=== PATIENT | female | born 1930 ===

== ENCOUNTER 2017-02-18 20:44 | Inpatient (IN) | payer MEDICARE, OTHER ==
[2017-02-18] MEDS ORDERED: TDAP Vaccine 0.5 mL Syr IM ONE (21:17)
--- NOTE | 2017-02-18 21:53 | CT ---
EXAM: CT Head Without Intravenous Contrast CLINICAL HISTORY: 86 years old, female; Injury or trauma; Fall; Initial encounter; Blunt trauma (contusions or hematomas); Consciousness not specified; Injury date: 02-18-2017; Additional info: Head injury TECHNIQUE: Axial computed tomography images of the head/brain without intravenous contrast. This CT exam was performed using one or more of the following dose reduction techniques: automated exposure control, adjustment of the mA and/or kV according to patient size, and/or use of iterative reconstruction technique. COMPARISON: CT HEAD OR BRAIN W/O CONT 03/23/2014 9:28:12 PM FINDINGS: Brain: Uiny-mr-gjmgscfr atrophy. No intracranial hemorrhage. No mass. Several scattered foci of decreased attenuation within periventricular/subcortical white matter. Chronic lacunar infarct within RIGHT basal ganglia. No edema. Ventricles: No hydrocephalus. Bones/joints: No calvarial fracture. Vasculature: Atherosclerotic disease of intracranial arteries. Mastoid air cells: No mastoid effusion. IMPRESSION: 1. No intracranial hemorrhage. 2. Nonspecific white matter changes. 3. See facial bone CT report for additional details. 4. Incidental/non-acute findings are described above.
[2017-02-18 22:02] LABS: BASO # 0.1 K/uL (0.0-0.2); BASO % 1.2 % (0.0-2.0); EOS # 0.2 K/uL (0.0-0.7); EOS % 2.4 % (0.0-4.0); LYMPH # 1.5 K/uL (1.0-4.3); LYMPH % 16.2 % (20.0-40.0); MEAN CELL VOLUME 93.7 fl (81.0-99.0); MEAN CORPUSCULAR HEMOGLOBIN 30.9 pg (27.0-31.0); MEAN PLATELET VOLUME 8.5 fl (7.2-11.7); MONO # 0.8 K/uL (0.0-0.8); MONO % 9.2 % (0.0-10.0); NEUT # 6.5 K/uL (1.8-7.0); NRBC % 0.1 % (0.0-0.0); RED CELL DISTRIBUTION WIDTH 15.1 % (11.5-14.5); WHITE BLOOD COUNT 9.2 K/uL (4.8-10.8)
[2017-02-18] MEDS ORDERED: Lidocaine 1% Inj (20ml) IJ ONE (22:02)
--- NOTE | 2017-02-18 22:06 | CT ---
EXAM: CT Cervical Spine Without Intravenous Contrast CLINICAL HISTORY: 86 years old, female; Injury or trauma; Fall; Initial encounter; Blunt trauma; Injury date: 02-18-2017; Additional info: Neck injury TECHNIQUE: Axial computed tomography images of the cervical spine without intravenous contrast. This CT exam was performed using one or more of the following dose reduction techniques: automated exposure control, adjustment of the mA and/or kV according to patient size, and/or use of iterative reconstruction technique. Coronal and sagittal reformatted images were created and reviewed. COMPARISON: No relevant prior studies available. FINDINGS: Vertebrae: No acute fracture. Degenerative retrolithesis of mid cervical spine. Facet osteoarthrosis within cervical spine. Discs/spinal canal/neural foramina: Mild degenerative disc disease within upper cervical spine. Moderate to severe degenerative disc disease within mid cervical spine. Uehn-ow-iqjshdir degenerative disc disease within mid to lower cervical spine. Dgru-pd-moenliyn degenerative disc disease within upper thoracic spine. Disc herniations within mid to lower cervical spine, suboptimally evaluated. Mild indentation thecal sac/cord mid cervical spine. Mild indentation thecal sac lower cervical spine. Neuroforaminal narrowing with mid and lower cervical spine. Soft tissues: Unremarkable. Vasculature: Mild atherosclerotic disease. Thyroid: Few cysts or nodules, largest 1.2 x 1.0 x 0.7 cm. Calcification. Lung apices: Few nodules and/or focal scarring, up to 0.3 cm. IMPRESSION: 1. No fracture. 2. Thyroid nodule. Followup as clinically warranted. 3. Pulmonary nodules. For low-risk patients, no follow-up is necessary. For high-risk patients (smoking history or other known risk factors) recommend CT at 12 months and if unchanged, no further follow-up. 4. Incidental/non-acute findings are described above.
[2017-02-18] MEDS ORDERED: Lidocaine 1% Inj (20ml) ONE (22:07)
[2017-02-18 22:14] LABS: ALB/GLOB RATIO 1.2 (1.0-2.1); ALKALINE PHOSPHATASE 107 U/L (38-126); ALT/SGPT 33 U/L (9-52); AST/SGOT 36 U/L (14-36); BILIRUBIN,TOTAL 0.5 mg/dl (0.2-1.3); BLOOD UREA NITROGEN 14 mg/dl (7-17); CALCIUM 9.8 mg/dL (8.4-10.2); CARBON DIOXIDE 28 mmol/L (22-30); CHLORIDE 102 mmol/L (98-107); GFR AFRICAN-AMERICAN > 60; GLUCOSE,RANDOM 128 mg/dL (65-105); POTASSIUM 3.8 MMOL/L (3.6-5.0); SODIUM 142 mmol/l (132-148); TOTAL PROTEIN 8.1 G/DL (6.3-8.2)
--- NOTE | 2017-02-18 22:20 | CT ---
EXAM: CT Maxillofacial Without Intravenous Contrast CLINICAL HISTORY: 86 years old, female; Injury or trauma; Fall; Initial encounter; Blunt trauma (contusions or hematomas); Nose and orbit/periorbital; Right; Injury date: 02-18-2017; Additional info: Facial trauma TECHNIQUE: Axial computed tomography images of the face without intravenous contrast. This CT exam was performed using one or more of the following dose reduction techniques: automated exposure control, adjustment of the mA and/or kV according to patient size, and/or use of iterative reconstruction technique. Coronal and sagittal reformatted images were created and reviewed. COMPARISON: No relevant prior studies available. FINDINGS: Bones/joints: Nondisplaced fracture RIGHT zygomatic arch. Mildly depressed fracture floor of RIGHT orbit. Mildly depressed fracture anterior wall of RIGHT maxillary sinus. Mildly displaced fracture posterolateral wall of RIGHT maxillary sinus. Nondisplaced fracture lateral wall of RIGHT orbit. Soft tissues: RIGHT periorbital/zygomatic soft tissue swelling. Orbits: Mild stranding/air along inferior RIGHT orbit. No entrapment. Sinuses: Partial opacification/fluid of RIGHT maxillary sinus. IMPRESSION: 1. Facial fractures as above. 2. Incidental/non-acute findings are described above.
[2017-02-18 22:28] LABS: PARTIAL THROMBOPLASTIN TIME 24.7 SECONDS (23.3-32.5)
[2017-02-18] MEDS ORDERED: Piperacillin/Tazobact 3.375 GM in Sodium Chloride 0.9% 100 ML IV STA (22:28)
[2017-02-18 22:55] LABS: RBC URINE 1 /hpf (0-3); URINE BILIRUBIN NEGATIVE (NEGATIVE); URINE BLOOD NEGATIVE (NEGATIVE); URINE COLOR STRAW (YELLOW); URINE GLUCOSE (UA) NEG (Normal); URINE KETONE NEGATIVE (NEGATIVE); URINE LEUKOCYTE ESTERASE NEG Leu/uL (Negative); URINE PROTEIN 30 mg/dL (NEGATIVE); URINE UROBILINOGEN 0.2-1.0 mg/dL (0.2-1.0); WBC URINE 1 /hpf (0-5)
--- NOTE | 2017-02-18 23:13 | ED PDOC ---
HPI: Trauma/Fall - HPI Time Seen by Provider: 02/18/17 20:54 Chief Complaint (Nursing): Trauma Chief Complaint (Provider): Post fall syncope History Per: Patient, Family (Son) History/Exam Limitations: no limitations Onset/Duration Of Symptoms: Hrs Location Of Injury: Left: Face (Acute left facial swelling) Additional Complaint(s): Vandana Chang, an 86 year old female patient, who is complaining of facial pain, presents to the ED with acute left facial swelling. She reported to her son that she tripped while walking and hit her face against a wall. The patient stated that her fall was unwitnessed and she seated herself on the ground after she fell. The patient denies loss of consciousness, shortness of breath, chest pains and nausea. According to her son. she had a similar fall 1 year ago and was rehabilitated for 3 months. The EMS immobilized her cervical spine in the field. PCP: Kevin Villaseñor - Fall Fall:Prior To Injury: Tripped Past Medical History Reviewed: Historical Data, Nursing Documentation, Vital Signs Vital Signs: Last Vital Signs Temp 98.2 F 02/19/17 04:00 Pulse 62 02/19/17 04:00 Resp 16 02/19/17 04:00 BP 134/82 02/19/17 04:00 Pulse Ox 97 02/19/17 04:00 - Medical History PMH: Arthritis, Dementia, HTN Denies: HIV, Chronic Kidney Disease Other PMH: Left eye blindness; Prior falls - Surgical History Other surgeries: Surgery on the right eye. - Family History Family History: States: Unknown Family Hx - Social History Current smoker - smoking cessation education provided: No Ex-Smoker (has not smoked in the last 12 months): No Alcohol: None Drugs: Denies - Home Medications Home Medications: Ambulatory Orders Medication Instructions Recorded Acitretin [Acitretin] 25 mg PO DAILY 02/18/17 Aspirin [Lo-Dose Aspirin EC] 81 mg PO DAILY 02/18/17 Donepezil HCl [Aricept] 5 mg PO DAILY 02/18/17 Donepezil [Aricept] 10 mg PO DAILY 02/18/17 Gabapentin [Neurontin] 100 mg PO BID 02/18/17 amLODIPine [Norvasc] 5 mg PO DAILY 02/18/17 hydrOXYzine HCl [Atarax] 10 mg PO DAILY 02/18/17 - Allergies Allergies/Adverse Reactions: Allergies Allergy/AdvReac Type Severity Reaction Status Date / Time No Known Allergies Allergy Verified 08/09/15 19:59 Review of Systems ROS Statement: Except As Marked, All Systems Reviewed And Found Negative Constitutional: Positive for: Other (Acute left facial swelling; fall) Cardiovascular: Negative for: Chest Pain Respiratory: Negative for: Shortness of Breath Gastrointestinal: Negative for: Nausea Musculoskeletal: Positive for: Other (Facial pain) Neurological: Positive for: Other (Possible syncope) Physical Exam - Reviewed Nursing Documentation Reviewed: Yes Vital Signs Reviewed: Yes - Physical Exam Appears: Positive for: Uncomfortable Head Exam: Positive for: ATRAUMATIC, NORMAL INSPECTION, NORMOCEPHALIC Skin: Positive for: Normal Color, Warm, Dry Eye Exam: Positive for: Other (3cm laceration to periorbital region lateral to right eye; ecchymosis and edema to right periorbital surface.) ENT: Positive for: Normal ENT Inspection Neck: Positive for: Normal, Painless ROM, Supple Cardiovascular/Chest: Positive for: Regular Rate, Rhythm, Chest Non Tender. Negative for: Tachycardia Respiratory: Positive for: Normal Breath Sounds. Negative for: Wheezing, Respiratory Distress Gastrointestinal/Abdominal: Positive for: Normal Exam, Soft. Negative for: Tenderness Back: Positive for: Normal Inspection, L CVA Tenderness, R CVA Tenderness Extremity: Positive for: Tenderness (Tenderness to right shoulder but arm moves. ), Other (1+ edema bilateral to lower extremeties.) Neurologic/Psych: Positive for: Alert, Oriented, Other (Awake, alert and oriented x3) - Laboratory Results Result Diagrams: 02/18/17 21:58 02/18/17 21:58 - ECG O2 Sat by Pulse Oximetry: 96 (RA) Pulse Ox Interpretation: Normal - Critical Care Total Time (In Min): 30 Medical Decision Making Medical Decision Makin:54 Initial Impression: 86 year old female, post fall with facial/orbital injury from setting of possible syncopal event. Initial Plan: * EKG * Creatine phosphokinase * Partial thromboplastin time * Prothrombin time * Lidocaine 1% (20mL) 3mL IJ * Morphine 2mg IVP * Zofran 4mg IV * Boostrix 0.5mL IM * Zosyn 3.375gm sodium chloride 0.9% 100mL IV * Reevaluation 9:53 CT Head Without Intravenous Contrast * No intracranial hemorrhage. * Nonspecific white matter changes 10:20 CT Maxillofacial Without Intravenous Contrast * Facial fractures. 10:06 CT Cervical Spine Without Intravenous Contrast * No fracture. * Thyroid nodule. * Pulmonary nodules. Right shoulder Xray shows no acute abnormalities. Dr. Tyson was consulted (Medicine financial analysis consultant) and he has agreed to admit the patient on service. performed a laceration repair. The patient tolerated the procedure well and there were no complications. See procedure note for details. Dx: Syncope, Right orbital and nasal fractures, facial laceration. Scribe Attestation: Documented by Nayeli Oshea acting as a scribe for Chelsea Lerma MD. Scribe Attestation: All medical record entries made by the Scribe were at my direction and personally dictated by me. I have reviewed the chart and agree that the record accurately reflects my personal performance of the history, physical exam, medical decision making, and the department course for this patient. I have also personally directed, reviewed, and agree with the discharge instructions and disposition. Procedures - Time-Out Type of Procedure: Laceraton Repair Site of Procedure: Stellate laceration on right upper cheek Correct Patient (with visual ID + MR# on ID Band): Yes Correct Procedure: Yes Correct Site Marked: Yes Physician Name: Dr. Johnny Lerma - Chest Tube Anesthesia: 1% Lidocaine (4mls) - Laceration/Wound Repair Right Upper Cheek Anesthesia: 1% Lidocaine Wound Repaired With: Sutures Suture Size/Type: 4:0, nylon Number of Sutures: 12 Wound Complexity: Intermediate Disposition - Clinical Impression Clinical Impression: Orbital fracture, Nasal fracture, Facial laceration, Syncope - Patient ED Disposition Is Patient to be Admitted: Yes Counseled Patient/Family Regarding: Studies Performed, Diagnosis - Disposition Disposition Time: 22:00 Condition: FAIR - Pt Status Changed To: Hospital Disposition Of: Inpatient - Admit Certification Admit to Inpatient:: After my assessment, the patient will require hospitalization for at least two midnights. This is because of the severity of symptoms shown, intensity of services needed, and/or the medical risk in this patient being treated as an outpatient.
[2017-02-18] MEDS ORDERED: Piperacillin/Tazobact 3.375 gm Inj IVPB ONE (23:52)
--- NOTE | 2017-02-19 05:48 | ED PDOC ---
- Laboratory Results Result Diagrams: 02/18/17 21:58 02/18/17 21:58 - ECG O2 Sat by Pulse Oximetry: 96 (RA) Pulse Ox Interpretation: Normal Medical Decision Making Medical Decision Making: Patient transferred to Dr. Lerma at [address] IV zosyn was ordered. Case discussed with Dr. Boothe for admission. Dr. Boothe will admit patient under her service. Dx: Acute appendicitis Disposition - Clinical Impression Clinical Impression: Orbital fracture, Nasal fracture, Facial laceration, Syncope - Disposition Condition: FAIR
[2017-02-19] MEDS ORDERED: Sodium Chloride 0.9% 1,000 ML IV SCH ×2 (07:00→09:30)
[2017-02-19] MEDS: Enoxaparin 40 mg Syringe SC SCH (09:09)
[2017-02-19] MEDS: Piperacillin/Tazobact 3.375 GM in Sodium Chloride 0.9% 100 ML IV SCH ×2 (09:10→17:00)
[2017-02-19 09:16] LABS: HEMATOCRIT 48.6 % (34.0-47.0); MEAN CELL VOLUME 93.7 fl (81.0-99.0); MEAN CORPUSCULAR HEMOGLOBIN 31.1 pg (27.0-31.0); MEAN CORPUSCULAR HGB CONC 33.2 g/dL (33.0-37.0); RED CELL DISTRIBUTION WIDTH 15.3 % (11.5-14.5); WHITE BLOOD COUNT 11.9 K/uL (4.8-10.8)
[2017-02-19 09:23] LABS: ALB/GLOB RATIO 1.1 (1.0-2.1); ALKALINE PHOSPHATASE 97 U/L (38-126); ALT/SGPT 29 U/L (9-52); AST/SGOT 34 U/L (14-36); BILIRUBIN,TOTAL 0.5 mg/dl (0.2-1.3); BLOOD UREA NITROGEN 13 mg/dl (7-17); CALCIUM 9.6 mg/dL (8.4-10.2); CARBON DIOXIDE 28 mmol/L (22-30); CHLORIDE 104 mmol/L (98-107); GFR AFRICAN-AMERICAN > 60; GLUCOSE,RANDOM 111 mg/dL (65-105); POTASSIUM 4.4 MMOL/L (3.6-5.0); SODIUM 144 mmol/l (132-148); TOTAL PROTEIN 8.1 G/DL (6.3-8.2)
[2017-02-19 09:53] LABS: THYROID STIMULATING HORMONE 1.22 mIU/ML (0.46-4.68)
--- NOTE | 2017-02-19 09:55 | RAD ---
PROCEDURE: Radiographs of the Right Shoulder HISTORY: pain COMPARISON: No prior. FINDINGS: BONES: Normal. No fracture. JOINTS: Moderate osteoarthritic changes at the AC joint associated with narrowing of the subacromial space. SOFT TISSUES: Normal. OTHER FINDINGS: None. IMPRESSION: No evidence of acute fracture or dislocation. 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
--- NOTE | 2017-02-19 10:07 | CARD ---
APPROVED REPORT EKG Measurement Heart [id number] <Conclusion> Sinus rhythm with occasional premature ventricular complexes Left bundle branch block Abnormal ECG
--- NOTE | 2017-02-19 14:31 | US ---
PROCEDURE: Carotid vertebral duplex sonography HISTORY: Syncope COMPARISON: None available. TECHNIQUE: Grayscale, color Doppler and spectral Doppler assessment of the carotid system bilaterally. This includes common carotid, internal carotid arteries Vertebral artery assessment with respect to direction of flow (antegrade or retrograde) FINDINGS: RIGHT carotid system: Assessment of plaque: Heterogeneous plaque formation. Peak systolic ICA velocity: 42 cm/sec End-diastolic velocity: 15 cm/sec ICA/CCA ratio: 1.0 Vertebral artery flow: Antegrade LEFT carotid system: Assessment of plaque: Ulcerating plaque distal left common carotid artery. Peak systolic ICA velocity: 47 47 cm/sec End-diastolic velocity: 16 cm/sec ICA/CCA ratio: 1.0 Vertebral artery flow: Antegrade IMPRESSION: Right ICA degree of stenosis: Less than 50% Left ICA degree of stenosis: Less than 50% Reference Internal Carotid Artery (ICA) Peak Systolic Velocity (PSV) for above: 1. Less than 50% stenosis less than 125 cm/s peak systolic velocity 2. 50-69% stenosis 125-230cm/s peak systolic velocity 3. Greater than 70% but less than near occlusion greater than 230 cm/s peak systolic velocity
--- NOTE | 2017-02-19 18:57 | CARD ---
APPROVED REPORT EXAM: Two-dimensional and M-mode echocardiogram with Doppler and color Doppler. Other Information Quality : GoodRhythm : NSR INDICATION Syncope 2D DIMENSIONS IVSd1.37 (0.7-1.1cm)LVDd3.77 (3.9-5.9cm) LVOT Diameter1.94 (1.8-2.4cm)PWd1.12 (0.7-1.1cm) IVSs1.21 (0.8-1.2cm)LVDs3.35 (2.5-4.0cm) FS (%) 11.2 %PWs1.37 (0.8-1.2cm) M-Mode DIMENSIONS Left Atrium (MM)3.97 (2.5-4.0cm)IVSd1.32 (0.7-1.1cm) Aortic Root3.21 (2.2-3.7cm)LVDd4.65 (4.0-5.6cm) Aortic Cusp Exc.1.85 (1.5-2.0cm)PWd1.24 (0.7-1.1cm) IVSs1.59 cmFS (%) 35 % LVDs3.03 (2.0-3.8cm)PWs1.65 cm Mitral Valve MV E Kdgcyumn44.5cm/sMV DECEL [id number] A Dukueajb94.2cm/s MV UMV60hpD/A ratio0.6MVA (PHT)2.67cm2 TDI Lateral E' Peak V3.42cm/sMedial E' Peak V3.18cm/sE/Lateral E'15.6 E/Medial E'16.8 Pulmonary Valve PV Peak Kefdrjkd08.1cm/s LEFT VENTRICLE The left ventricle is normal size. There is borderline to mild concentric left ventricular hypertrophy. The left ventricular function is normal. The left ventricular ejection fraction is low normal at - 50%. The inferior and posterior ferreira are hypokinetics in some views. The other segments of the left ventricle have good contraction. Transmitral Doppler flow pattern is Grade I-abnormal relaxation pattern. No left ventricle thrombus noted on this study. There is no ventricular septal defect visualized. There is no left ventricular aneurysm. There is no mass noted in the left ventricle. RIGHT VENTRICLE The right ventricle is normal size. There is normal right ventricular wall thickness. The right ventricular systolic function is normal. ATRIA The left atrium is mildly dilated on the 2D study. There is no thrombus suspected in the left atrium. The right atrium size is normal. The interatrial septum is intact with no evidence for an atrial septal defect. AORTIC VALVE The aortic valve is normal in structure and function. No aortic regurgitation is present. There is no aortic valvular stenosis. There is no aortic valvular vegetation. MITRAL VALVE The mitral valve is normal in structure and function. There is no evidence of mitral valve prolapse. There is no mitral valve stenosis. Mitral regurgitation is mild. TRICUSPID VALVE The tricuspid valve is normal in structure and function. There is no tricuspid valve regurgitation noted. There is no tricuspid valve prolapse or vegetation. There is no tricuspid valve stenosis. PULMONIC VALVE The pulmonary valve is normal in structure and function. There is trivial pulmonic valvular regurgitation. GREAT VESSELS The aortic root is normal in size. The IVC collapses <50% with inspiration. PERICARDIAL EFFUSION The pericardium appears normal. There is no pleural effusion. <Conclusion> The left ventricle is normal in size. There is borderline to mild concentric left ventricular hypertrophy. The left ventricular function is normal. The left ventricular ejection fraction is low normal at - 50%. The left atrium is mildly dilated on the 2D study. The mitral, aortic and tricuspid valves are normal. There is mild mitral regurgitation.
--- NOTE | 2017-02-19 21:52 | CP.PCM.HP ---
History of Present Illness - History of Present Illness History of Present Illness: An 86 yr old female with hx of HTN, Dementia uses walker\cane at home partailly dependant on ADL\IDL BROUGHT TO ER after she fell from stool at home while doing chores and sustained multiple facial fractures and laceration, s\ p sutured in ER and unable to open right eye with discoloration . denies syncope notes she feeling ok, does not want pain meds patient notes she wants to exercise to get better Present on Admission - Present on Admission Any Indicators Present on Admission: No Review of Systems - Constitutional Constitutional: Fatigue. absent: Chills, Fever, Snoring - EENT Nose/Mouth/Throat: absent: Epistaxis, Bleeding Gums, Sore Throat - Cardiovascular Cardiovascular: absent: Chest Pain, Dyspnea, Edema, Rapid Heart Rate - Respiratory Respiratory: absent: Cough, Dyspnea on Exertion, Chest Congestion - Gastrointestinal Gastrointestinal: absent: Constipation, Nausea, Vomiting - Genitourinary Genitourinary: Urinary Frequency. absent: Difficulty Urinating, Hematuria - Integumentary Integumentary: Dry Skin - Neurological Neurological: Frequent Falls, Paresthesias, Other Visual Disturbances. absent: Headaches, Weakness - Psychiatric Psychiatric: Behavioral Changes. absent: Hallucinations - Endocrine Endocrine: Fatigue - Hematologic/Lymphatic Hematologic: Easy Bleeding. absent: Easy Bruising, Lymphadenopathy Past Patient History - Past Medical History & Family History Past Medical History?: Yes - Past Social History Smoking Status: Never Smoked - CARDIAC Hx Hypertension: Yes - PULMONARY Hx Respiratory Disorders: No - NEUROLOGICAL Hx Dementia: Yes - HEENT Hx Cataracts: Yes - RENAL Hx Chronic Kidney Disease: No - HEMATOLOGICAL/ONCOLOGICAL Hx AIDS: No Hx Human Immunodeficiency Virus (HIV): No - INTEGUMENTARY Hx Dermatological Problems: No - MUSCULOSKELETAL/RHEUMATOLOGICAL Hx Arthritis: Yes Hx Falls: Yes - GASTROINTESTINAL Hx Gastrointestinal Disorders: No - GENITOURINARY/GYNECOLOGICAL Hx Incontinence: Yes - PSYCHIATRIC Hx Psychophysiologic Disorder: No Hx Substance Use: No - SURGICAL HISTORY Hx Surgeries: Yes Hx Eye Surgery: Yes Other/Comment: lumpectomy/abdominal sx - ANESTHESIA Hx Anesthesia: Yes Hx Anesthesia Reactions: No Hx Malignant Hyperthermia: No Has any member of the family had a problem w/ anesthesia?: No Meds Allergies/Adverse Reactions: Allergies Allergy/AdvReac Type Severity Reaction Status Date / Time No Known Allergies Allergy Verified 08/09/15 19:59 Physical Exam - Constitutional Appears: No Acute Distress - Head Exam Additional comments: right eye-diffuse bluish discoloration unable to open eye tender touch right side facial area - Eye Exam Eye Exam: EOMI (left eye), PERRL (left eye) - ENT Exam ENT Exam: Normal Exam - Neck Exam Neck exam: Negative for: Lymphadenopathy - Respiratory Exam Respiratory Exam: Clear to Auscultation Bilateral, NORMAL BREATHING PATTERN. absent: Accessory Muscle Use, Decreased Breath Sounds, Wheezes - Cardiovascular Exam Cardiovascular Exam: REGULAR RHYTHM, RRR, +S1, +S2 - GI/Abdominal Exam GI & Abdominal Exam: Normal Bowel Sounds, Soft. absent: Guarding, Organomegaly , Tenderness - Extremities Exam Extremities exam: Positive for: full ROM, pedal pulses present. Negative for: pedal edema - Back Exam Back exam: CVA tenderness (R). absent: CVA tenderness (L), paraspinal tenderness - Neurological Exam Neurological exam: Alert, Oriented x3 - Psychiatric Exam Psychiatric exam: Normal Affect, Normal Mood - Skin Skin Exam: Intact Results - Vital Signs Recent Vital Signs: Last Vital Signs Temp 98.5 F 02/19/17 19:16 Pulse 63 02/19/17 19:16 Resp 20 02/19/17 19:16 BP 142/78 02/19/17 19:16 Pulse Ox 99 02/19/17 19:16 - Labs Result Diagrams: 02/22/17 06:00 02/22/17 06:00 Labs: Laboratory Results - last 24 hr 02/18/17 02/19/17 02/19/17 22:47 06:50 06:50 WBC 11.9 H RBC 5.19 Hgb 16.1 H Hct 48.6 H MCV 93.7 MCH 31.1 H MCHC 33.2 RDW 15.3 H Plt Count 210 Sodium 144 Potassium 4.4 Chloride 104 Carbon Dioxide 28 Anion Gap 18 BUN 13 Creatinine 0.9 Est GFR ( Amer) > 60 Est GFR (Non-Af Amer) 59 Random Glucose 111 H Calcium 9.6 Total Bilirubin 0.5 AST 34 ALT 29 Alkaline Phosphatase 97 Troponin I 0.0400 Total Protein 8.1 Albumin 4.3 Globulin 3.9 Albumin/Globulin Ratio 1.1 TSH 3rd Generation 1.22 Urine Color Straw Urine Clarity Clear Urine pH 8.0 Ur Specific [place] 1.008 Urine Protein 30 Urine Glucose (UA) Neg Urine Ketones Negative Urine Blood Negative Urine Nitrate Negative Urine Bilirubin Negative Urine Urobilinogen 0.2-1.0 Ur Leukocyte Esterase Neg Urine RBC (Auto) 1 Urine Microscopic WBC 1 02/19/17 15:14 WBC RBC Hgb Hct MCV MCH MCHC RDW Plt Count Sodium Potassium Chloride Carbon Dioxide Anion Gap BUN Creatinine Est GFR ( Amer) Est GFR (Non-Af Amer) Random Glucose Calcium Total Bilirubin AST ALT Alkaline Phosphatase Troponin I 0.0400 Total Protein Albumin Globulin Albumin/Globulin Ratio TSH 3rd Generation Urine Color Urine Clarity Urine pH Ur Specific [place] Urine Protein Urine Glucose (UA) Urine Ketones Urine Blood Urine Nitrate Urine Bilirubin Urine Urobilinogen Ur Leukocyte Esterase Urine RBC (Auto) Urine Microscopic WBC - EKG Data EKG Interpreted by: Other EKG shows normal: Sinus rhythm Rate: Normal - Imaging and Cardiology CT scan - head Status: Report reviewed by me Chest x-ray Status: Report reviewed by me Assessment & Plan (1) Facial laceration Status: Acute (2) Maxillary fracture Status: Acute (3) Nasal fracture Status: Acute (4) Orbital fracture Status: Acute (5) Dementia Status: Acute (6) Essential (primary) hypertension Status: Acute - Assessment and Plan (Free Text) Plan: 1.s\p fall- r\o cardiac causes trops\ekg- 3 echo hold ASA 2. faciomaxillar consult 3. continue meds 4. PT evalv 4. resume full diet 5.pain meds as needed Decision To Admit - Pt Status Changed To: Hospital Disposition Of: Inpatient - Admit Certification Admit to Inpatient:: After my assessment, the patient will require hospitalization for at least two midnights. This is because of the severity of symptoms shown, intensity of services needed, and/or the medical risk in this patient being treated as an outpatient. - . Bed Request Type: Telemetry Admitting Physician: Maria Elena Tyson
[2017-02-20] MEDS: Piperacillin/Tazobact 3.375 GM in Sodium Chloride 0.9% 100 ML IV SCH ×3 (01:55→17:03)
[2017-02-20] MEDS: Enoxaparin 40 mg Syringe SC SCH (09:50)
--- NOTE | 2017-02-20 22:20 | CP.PCM.PN ---
Subjective - Date & Time of Evaluation Date of Evaluation: 02/20/17 Time of Evaluation: 08:00 - Subjective Subjective: feeling little better, able to open right eye better. ct head- basal skull and right maxillary fracture, infraorbital fracture PT eval recomend rehab [id number], labs noted,normal TSH echo- mild dialated LA Objective - Vital Signs/Intake and Output Vital Signs (last 24 hours): Temp Pulse Resp BP Pulse Ox 97.0 F L 80 18 147/88 95 02/20/17 20:35 02/20/17 20:35 02/20/17 20:35 02/20/17 20:35 02/20/17 20:35 - Medications Medications: Current Medications Amlodipine Besylate (Norvasc) 5 mg PO DAILY [facility] Last Admin: 02/20/17 10:09 Dose: 5 mg Aspirin (Ecotrin) 81 mg PO DAILY [facility] Last Admin: 02/20/17 09:49 Dose: 81 mg Donepezil HCl (Aricept) 5 mg PO DAILY [facility] Last Admin: 02/20/17 09:50 Dose: 5 mg Enoxaparin Sodium (Lovenox) 40 mg SC DAILY [facility] PRN Reason: Protocol Last Admin: 02/20/17 09:50 Dose: 40 mg Gabapentin (Neurontin) 100 mg PO BID [facility] Last Admin: 02/20/17 17:01 Dose: Not Given Hydroxyzine HCl (Atarax) 10 mg PO DAILY [facility] Last Admin: 02/20/17 09:50 Dose: 10 mg Piperacillin Sod/Tazobactam (Sod 3.375 gm/ Sodium Chloride) 100 mls @ 100 mls/ hr IV Q8 [facility] Last Admin: 02/20/17 17:03 Dose: 100 mls/hr - Labs Labs: 02/19/17 06:50 02/19/17 06:50 PT 10.3 SECONDS (9.6-11.2) 02/18/17 21:58 INR 0.99 (0.92-1.08) 02/18/17 21:58 APTT 24.7 SECONDS (23.3-32.5) 02/18/17 21:58 - Additional Findings Additional findings: Physical Exam - Constitutional Appears: No Acute Distress - Head Exam Additional comments: right eye-diffuse bluish discoloration unable to open eye tender touch right side facial area - Eye Exam Eye Exam: EOMI (left eye), PERRL (left eye) - ENT Exam ENT Exam: Normal Exam - Neck Exam Neck exam: Negative for: Lymphadenopathy - Respiratory Exam Respiratory Exam: Clear to Auscultation Bilateral, NORMAL BREATHING PATTERN. absent: Accessory Muscle Use, Decreased Breath Sounds, Wheezes - Cardiovascular Exam Cardiovascular Exam: REGULAR RHYTHM, RRR, +S1, +S2 - GI/Abdominal Exam GI & Abdominal Exam: Normal Bowel Sounds, Soft. absent: Guarding, Organomegaly , Tenderness - Extremities Exam Extremities exam: Positive for: full ROM, pedal pulses present. Negative for: pedal edema - Back Exam Back exam: CVA tenderness (R). absent: CVA tenderness (L), paraspinal tenderness - Neurological Exam Neurological exam: Alert, Oriented x3 - Psychiatric Exam Psychiatric exam: Normal Affect, Normal Mood - Skin Skin Exam: Intact Assessment and Plan (1) Maxillary fracture Status: Acute (2) Orbital fracture Status: Acute (3) Dementia Status: Chronic (4) Essential (primary) hypertension Status: Chronic - Assessment and Plan (Free Text) Plan: multiple fractures PT on board diet and activity as tolerated continue meds labs to follow continue IVF
[2017-02-21] MEDS: Piperacillin/Tazobact 3.375 GM in Sodium Chloride 0.9% 100 ML IV SCH ×3 (02:00→16:29)
[2017-02-21] MEDS: Enoxaparin 40 mg Syringe SC SCH (09:59)
--- NOTE | 2017-02-21 17:57 | CP.PCM.PN ---
Subjective - Date & Time of Evaluation Date of Evaluation: 02/21/17 Time of Evaluation: 09:00 - Subjective Subjective: faciomaxillary evaluation pending.feels sleepy. left message to family labs noted right shoulder pain is [id number] fracture. Objective - Vital Signs/Intake and Output Vital Signs (last 24 hours): Temp Pulse Resp BP Pulse Ox 97.3 F L 87 20 123/83 97 02/21/17 15:25 02/21/17 15:25 02/21/17 15:25 02/21/17 15:25 02/21/17 15:25 - Medications Medications: Current Medications Amlodipine Besylate (Norvasc) 5 mg PO DAILY [facility] Last Admin: 02/21/17 10:00 Dose: 5 mg Aspirin (Ecotrin) 81 mg PO DAILY [facility] Last Admin: 02/21/17 10:00 Dose: 81 mg Donepezil HCl (Aricept) 5 mg PO DAILY [facility] Last Admin: 02/21/17 09:59 Dose: 5 mg Enoxaparin Sodium (Lovenox) 40 mg SC DAILY [facility] PRN Reason: Protocol Last Admin: 02/21/17 09:59 Dose: 40 mg Gabapentin (Neurontin) 100 mg PO BID [facility] Last Admin: 02/21/17 16:29 Dose: 100 mg Hydroxyzine HCl (Atarax) 10 mg PO DAILY [facility] Last Admin: 02/21/17 10:00 Dose: 10 mg Piperacillin Sod/Tazobactam (Sod 3.375 gm/ Sodium Chloride) 100 mls @ 100 mls/ hr IV Q8 [facility] Last Admin: 02/21/17 16:29 Dose: 100 mls/hr - Labs Labs: 02/19/17 06:50 02/19/17 06:50 PT 10.3 SECONDS (9.6-11.2) 02/18/17 21:58 INR 0.99 (0.92-1.08) 02/18/17 21:58 APTT 24.7 SECONDS (23.3-32.5) 02/18/17 21:58 - Additional Findings Additional findings: Physical Exam - Constitutional Appears: No Acute Distress - Head Exam Additional comments: right eye-diffuse bluish discoloration unable to open eye tender touch right side facial area - Eye Exam Eye Exam: EOMI (left eye), PERRL (left eye) - ENT Exam ENT Exam: Normal Exam - Neck Exam Neck exam: Negative for: Lymphadenopathy - Respiratory Exam Respiratory Exam: Clear to Auscultation Bilateral, NORMAL BREATHING PATTERN. absent: Accessory Muscle Use, Decreased Breath Sounds, Wheezes - Cardiovascular Exam Cardiovascular Exam: REGULAR RHYTHM, RRR, +S1, +S2 - GI/Abdominal Exam GI & Abdominal Exam: Normal Bowel Sounds, Soft. absent: Guarding, Organomegaly , Tenderness - Extremities Exam Extremities exam: Positive for: full ROM, pedal pulses present. Negative for: pedal edema - Back Exam Back exam: CVA tenderness (R). absent: CVA tenderness (L), paraspinal tenderness - Neurological Exam Neurological exam: Alert, Oriented x3 - Psychiatric Exam Psychiatric exam: Normal Affect, Normal Mood - Skin Skin Exam: Intact Assessment and Plan (1) Maxillary fracture Status: Acute (2) Orbital fracture Status: Acute (3) Dementia Status: Chronic (4) Essential (primary) hypertension Status: Chronic - Assessment and Plan (Free Text) Plan: will d]w faciomaxillary, if clears to d\c rehab continue meds
[2017-02-22] MEDS: Piperacillin/Tazobact 3.375 GM in Sodium Chloride 0.9% 100 ML IV SCH ×3 (02:01→17:22)
[2017-02-22 08:29] LABS: BASO # 0.1 K/uL (0.0-0.2); EOS # 0.3 K/uL (0.0-0.7); EOS % 4.4 % (0.0-4.0); HEMATOCRIT 41.3 % (34.0-47.0); LYMPH # 1.7 K/uL (1.0-4.3); LYMPH % 24.8 % (20.0-40.0); MEAN CELL VOLUME 92.3 fl (81.0-99.0); MEAN CORPUSCULAR HEMOGLOBIN 31.1 pg (27.0-31.0); MEAN CORPUSCULAR HGB CONC 33.7 g/dL (33.0-37.0); MEAN PLATELET VOLUME 8.8 fl (7.2-11.7); MONO # 0.8 K/uL (0.0-0.8); MONO % 11.7 % (0.0-10.0); NEUT # 3.9 K/uL (1.8-7.0); NEUT % 58.1 % (50.0-75.0); NRBC % 0.1 % (0.0-0.0); RED CELL DISTRIBUTION WIDTH 14.7 % (11.5-14.5); WHITE BLOOD COUNT 6.7 K/uL (4.8-10.8)
[2017-02-22 08:45] LABS: ALKALINE PHOSPHATASE 76 U/L (38-126); ALT/SGPT 31 U/L (9-52); AST/SGOT 30 U/L (14-36); BILIRUBIN,TOTAL 0.5 mg/dl (0.2-1.3); BLOOD UREA NITROGEN 13 mg/dl (7-17); CALCIUM 8.9 mg/dL (8.4-10.2); CARBON DIOXIDE 29 mmol/L (22-30); CHLORIDE 102 mmol/L (98-107); GFR AFRICAN-AMERICAN > 60; GLUCOSE,RANDOM 82 mg/dL (65-105); POTASSIUM 3.6 MMOL/L (3.6-5.0); SODIUM 139 mmol/l (132-148)
[2017-02-22] MEDS: Enoxaparin 40 mg Syringe SC SCH (09:08)
--- NOTE | 2017-02-22 22:30 | CP.PCM.PN ---
Subjective - Date & Time of Evaluation Date of Evaluation: 02/22/17 Time of Evaluation: 08:00 - Subjective Subjective: spoke with faciomaxillary, needs sx for infraorbital muscle trap .. spoke to daughter . patient does not want blood products. Objective - Vital Signs/Intake and Output Vital Signs (last 24 hours): Temp Pulse Resp BP Pulse Ox 97.8 F 78 20 114/74 97 02/22/17 16:00 02/22/17 16:00 02/22/17 16:00 02/22/17 16:00 02/22/17 16:00 - Medications Medications: Current Medications Amlodipine Besylate (Norvasc) 5 mg PO DAILY [facility] Last Admin: 02/22/17 09:07 Dose: 5 mg Aspirin (Ecotrin) 81 mg PO DAILY [facility] Last Admin: 02/22/17 09:07 Dose: 81 mg Donepezil HCl (Aricept) 5 mg PO DAILY [facility] Last Admin: 02/22/17 09:07 Dose: 5 mg Gabapentin (Neurontin) 100 mg PO BID [facility] Last Admin: 02/22/17 17:22 Dose: 100 mg Hydroxyzine HCl (Atarax) 10 mg PO DAILY [facility] Last Admin: 02/22/17 09:08 Dose: 10 mg Piperacillin Sod/Tazobactam (Sod 3.375 gm/ Sodium Chloride) 100 mls @ 100 mls/ hr IV Q8 [facility] Last Admin: 02/22/17 17:22 Dose: 100 mls/hr - Labs Labs: 02/22/17 06:00 02/22/17 06:00 PT 10.3 SECONDS (9.6-11.2) 02/18/17 21:58 INR 0.99 (0.92-1.08) 02/18/17 21:58 APTT 24.7 SECONDS (23.3-32.5) 02/18/17 21:58 - Additional Findings Additional findings: Physical Exam - Constitutional Appears: No Acute Distress - Head Exam Additional comments: right eye-diffuse bluish discoloration unable to open eye tender touch right side facial area - Eye Exam Eye Exam: EOMI (left eye), PERRL (left eye) - ENT Exam ENT Exam: Normal Exam - Neck Exam Neck exam: Negative for: Lymphadenopathy - Respiratory Exam Respiratory Exam: Clear to Auscultation Bilateral, NORMAL BREATHING PATTERN. absent: Accessory Muscle Use, Decreased Breath Sounds, Wheezes - Cardiovascular Exam Cardiovascular Exam: REGULAR RHYTHM, RRR, +S1, +S2 - GI/Abdominal Exam GI & Abdominal Exam: Normal Bowel Sounds, Soft. absent: Guarding, Organomegaly , Tenderness - Extremities Exam Extremities exam: Positive for: full ROM, pedal pulses present. Negative for: pedal edema - Back Exam Back exam: CVA tenderness (R). absent: CVA tenderness (L), paraspinal tenderness - Neurological Exam Neurological exam: Alert, Oriented x3 - Psychiatric Exam Psychiatric exam: Normal Affect, Normal Mood - Skin Skin Exam: Intact Assessment and Plan (1) Maxillary fracture Status: Acute (2) Orbital fracture Status: Acute (3) Dementia Status: Chronic (4) Essential (primary) hypertension Status: Chronic - Assessment and Plan (Free Text) Plan: 1. patient is at moderate risk for sx 2.possible sx in am 3. continue meds
[2017-02-23] MEDS: Piperacillin/Tazobact 3.375 GM in Sodium Chloride 0.9% 100 ML IV SCH ×3 (01:03→16:35)
--- NOTE | 2017-02-23 15:05 | CP.PCM.PCO ---
Assessment/Plan - Assessment and Plan (Free Text) Assessment: Patient seen and examined this morning. Call out Dr Cooper with regards to surgical plan for facial fractures As per MD, patient to have repair of orbital floor later on this evening. Discussed with Dr Tyson, patient medically cleared for OR plans discussed with Son Jethro who agrees with medical plan.
--- NOTE | 2017-02-23 23:32 | CP.PCM.PN ---
Subjective - Date & Time of Evaluation Date of Evaluation: 02/23/17 Time of Evaluation: 08:00 - Subjective Subjective: not eating much sx held for cardiac clearance, family aware of prognosis able to open eye better than before Objective - Vital Signs/Intake and Output Vital Signs (last 24 hours): Temp Pulse Resp BP Pulse Ox 98.2 F 92 H 20 119/78 98 02/23/17 20:22 02/23/17 21:00 02/23/17 20:22 02/23/17 20:22 02/23/17 20:22 - Medications Medications: Current Medications Amlodipine Besylate (Norvasc) 5 mg PO DAILY [facility] Last Admin: 02/23/17 08:48 Dose: 5 mg Aspirin (Ecotrin) 81 mg PO DAILY [facility] Last Admin: 02/23/17 08:48 Dose: 81 mg Donepezil HCl (Aricept) 5 mg PO DAILY [facility] Last Admin: 02/23/17 08:48 Dose: 5 mg Gabapentin (Neurontin) 100 mg PO BID [facility] Last Admin: 02/23/17 16:34 Dose: 100 mg Hydroxyzine HCl (Atarax) 10 mg PO DAILY [facility] Last Admin: 02/23/17 08:48 Dose: 10 mg Piperacillin Sod/Tazobactam (Sod 3.375 gm/ Sodium Chloride) 100 mls @ 100 mls/ hr IV Q8 [facility] Last Admin: 02/23/17 16:35 Dose: 100 mls/hr - Labs Labs: 02/22/17 06:00 02/22/17 06:00 PT 10.3 SECONDS (9.6-11.2) 02/18/17 21:58 INR 0.99 (0.92-1.08) 02/18/17 21:58 APTT 24.7 SECONDS (23.3-32.5) 02/18/17 21:58 - Additional Findings Additional findings: Physical Exam - Constitutional Appears: No Acute Distress - Head Exam Additional comments: right eye-diffuse bluish discoloration open eye half through tender touch right side facial area - Eye Exam Eye Exam: EOMI (left eye), PERRL (left eye) - ENT Exam ENT Exam: Normal Exam - Neck Exam Neck exam: Negative for: Lymphadenopathy - Respiratory Exam Respiratory Exam: Clear to Auscultation Bilateral, NORMAL BREATHING PATTERN. absent: Accessory Muscle Use, Decreased Breath Sounds, Wheezes - Cardiovascular Exam Cardiovascular Exam: REGULAR RHYTHM, RRR, +S1, +S2 - GI/Abdominal Exam GI & Abdominal Exam: Normal Bowel Sounds, Soft. absent: Guarding, Organomegaly , Tenderness - Extremities Exam Extremities exam: Positive for: full ROM, pedal pulses present. Negative for: pedal edema - Back Exam Back exam: CVA tenderness (R). absent: CVA tenderness (L), paraspinal tenderness - Neurological Exam Neurological exam: Alert, Oriented x3 - Psychiatric Exam Psychiatric exam: Normal Affect, Normal Mood - Skin Skin Exam: Intact Assessment and Plan (1) Maxillary fracture Status: Acute (2) Orbital fracture Status: Acute (3) Dementia Status: Chronic (4) Essential (primary) hypertension Status: Chronic - Assessment and Plan (Free Text) Plan: cardiology consult family aware of decision spoke to son and daughter continue curent meds.
[2017-02-24] MEDS: Piperacillin/Tazobact 3.375 GM in Sodium Chloride 0.9% 100 ML IV SCH ×3 (01:10→17:14)
--- NOTE | 2017-02-24 13:33 | CP.PCM.CON ---
History of Present Illness - History of Present Illness History of Present Illness: Full Note Dictated Fall with facial fractures Hypertension Medically stable for Sx under necessary anesthesia Past Patient History - Past Medical History & Family History Past Medical History?: Yes - Past Social History Smoking Status: Never Smoked - CARDIAC Hx Hypertension: Yes - PULMONARY Hx Respiratory Disorders: No - NEUROLOGICAL Hx Dementia: Yes - HEENT Hx Cataracts: Yes - RENAL Hx Chronic Kidney Disease: No - HEMATOLOGICAL/ONCOLOGICAL Hx AIDS: No Hx Human Immunodeficiency Virus (HIV): No - INTEGUMENTARY Hx Dermatological Problems: No - MUSCULOSKELETAL/RHEUMATOLOGICAL Hx Arthritis: Yes Hx Falls: Yes - GASTROINTESTINAL Hx Gastrointestinal Disorders: No - GENITOURINARY/GYNECOLOGICAL Hx Incontinence: Yes - PSYCHIATRIC Hx Psychophysiologic Disorder: No Hx Substance Use: No - SURGICAL HISTORY Hx Surgeries: Yes Hx Eye Surgery: Yes Other/Comment: lumpectomy/abdominal sx - ANESTHESIA Hx Anesthesia: Yes Hx Anesthesia Reactions: No Hx Malignant Hyperthermia: No Has any member of the family had a problem w/ anesthesia?: No Meds Allergies/Adverse Reactions: Allergies Allergy/AdvReac Type Severity Reaction Status Date / Time No Known Allergies Allergy Verified 08/09/15 19:59 - Medications Medications: Current Medications Aspirin (Ecotrin) [address] [facility] Last Admin: 02/23/17 08:48 Dose: 81 mg Donepezil HCl (Aricept) [address] [facility] Last Admin: 02/24/17 09:55 Dose: Not Given Gabapentin (Neurontin) [address] [facility] Last Admin: 02/24/17 09:56 Dose: Not Given Hydroxyzine HCl (Atarax) [address] [facility] Last Admin: 02/24/17 09:55 Dose: Not Given Piperacillin Sod/Tazobactam (Sod 3.375 gm/ Sodium Chloride) 100 mls @ 100 mls/ hr IV Q8 [facility] Last Admin: 02/24/17 09:59 Dose: 100 mls/hr Results - Vital Signs Recent Vital Signs: Last Vital Signs Temp 98.5 F 02/24/17 12:03 Pulse 78 02/24/17 12:03 Resp 18 02/24/17 12:03 BP 108/71 02/24/17 12:03 Pulse Ox 97 02/24/17 12:03 - Labs Result Diagrams: 02/22/17 06:00 02/22/17 06:00 Labs: Laboratory Results - last 24 hr 02/23/17 02/23/17 16:15 18:42 Blood Type O POSITIVE Blood Type Confirm O POSITIVE Antibody Screen Negative BBK History Checked No verified bt
--- NOTE | 2017-02-24 13:55 | CON ---
DATE: 02/24/2017 She is hospitalized under Dr. Tyson's care in room 404, bed 2. HISTORY OF PRESENT ILLNESS: This 86-year-old hypertensive female, who lives alone at home, has come into the hospital following a fall during which she has injured multiple facial bones and now require s reconstructive surgery on orbital floor. She denies any history of diabetes or having suffered a m yocardial infarction and denies symptoms of congestive cardiac failure. She ambulates well at home a nd looks after her immediate necessities. She has been taking medications for dementia, but during i nterview appeared to recall details quite well. She denies any history of palpitations or prior hist ory of syncope. PHYSICAL EXAMINATION: GENERAL: Shows an elderly female who is able to lie virtually flat and breathe comfortably at approx imately 14-16 breaths per minute and carry on a conversation. VITAL SIGNS: Has a heart rate of 68 beats per minute, regular and a blood pressure of 150/80 mmHg. NECK: Her jugular venous pressure was not elevated. EXTREMITIES: There was no edema of the lower extremities. There were no carotid bruits. HEART: Sounds were pure. EXTREMITIES: Warm. Nailbeds are pink. No central or peripheral cyanosis was evident. Her electrocardiogram showed sinus rhythm with a normal EKG pattern. Her echocardiogram showed prese rved left ventricular systolic function with no significant valvulopathy. Her lab data was noted. IMPRESSION: At this time, is a history of hypertension in a patient who has sustained multiple facia l fractures during a fall. She appears medically stable to proceed with the planned surgery. Bahman Andrew MD cc: 23 TT: 02/24/2017 13:54:33 Confirmation # [id number] Dictation # [id number]
--- NOTE | 2017-02-24 22:36 | CP.PCM.PN ---
Subjective - Date & Time of Evaluation Date of Evaluation: 02/24/17 Time of Evaluation: 18:00 - Subjective Subjective: able to open eye labs reviwed cardiology cleared the patient eating small amounts. no new complaints. Objective - Vital Signs/Intake and Output Vital Signs (last 24 hours): Temp Pulse Resp BP Pulse Ox 97.6 F 94 H 18 150/84 98 02/24/17 19:12 02/24/17 19:12 02/24/17 19:12 02/24/17 19:12 02/24/17 19:12 Intake and Output: 02/24/17 02/25/17 18:59 06:59 Intake Total 1060 Balance 1060 - Medications Medications: Current Medications Aspirin (Ecotrin) 81 mg PO DAILY [facility] Last Admin: 02/23/17 08:48 Dose: 81 mg Donepezil HCl (Aricept) 5 mg PO DAILY [facility] Last Admin: 02/24/17 17:12 Dose: 5 mg Gabapentin (Neurontin) 100 mg PO BID [facility] Last Admin: 02/24/17 17:13 Dose: 100 mg Hydroxyzine HCl (Atarax) 10 mg PO DAILY [facility] Last Admin: 02/24/17 17:13 Dose: 10 mg Piperacillin Sod/Tazobactam (Sod 3.375 gm/ Sodium Chloride) 100 mls @ 100 mls/ hr IV Q8 [facility] Last Admin: 02/24/17 17:14 Dose: 100 mls/hr - Labs Labs: 02/22/17 06:00 02/22/17 06:00 PT 10.3 SECONDS (9.6-11.2) 02/18/17 21:58 INR 0.99 (0.92-1.08) 02/18/17 21:58 APTT 24.7 SECONDS (23.3-32.5) 02/18/17 21:58 - Additional Findings Additional findings: Constitutional Appears: No Acute Distress - Head Exam Additional comments: right eye-diffuse bluish discoloration able to open eye,lateral gaze impaired tender touch right side facial area - Eye Exam Eye Exam: EOMI (left eye), PERRL (left eye) - ENT Exam ENT Exam: Normal Exam - Neck Exam Neck exam: Negative for: Lymphadenopathy - Respiratory Exam Respiratory Exam: Clear to Auscultation Bilateral, NORMAL BREATHING PATTERN. absent: Accessory Muscle Use, Decreased Breath Sounds, Wheezes - Cardiovascular Exam Cardiovascular Exam: REGULAR RHYTHM, RRR, +S1, +S2 - GI/Abdominal Exam GI & Abdominal Exam: Normal Bowel Sounds, Soft. absent: Guarding, Organomegaly , Tenderness - Extremities Exam Extremities exam: Positive for: full ROM, pedal pulses present. Negative for: pedal edema - Back Exam Back exam: CVA tenderness (R). absent: CVA tenderness (L), paraspinal tenderness - Neurological Exam Neurological exam: Alert, Oriented x3 - Psychiatric Exam Psychiatric exam: Normal Affect, Normal Mood - Skin Skin Exam: Intact Assessment and Plan (1) Maxillary fracture Status: Acute (2) Orbital fracture Status: Acute (3) Dementia Status: Chronic (4) Essential (primary) hypertension Status: Chronic - Assessment and Plan (Free Text) Plan: 1. patient is at moderate risk for sx 2.possible sx in am 3. continue meds Assessment and Plan (1) Maxillary fracture Status: Acute (2) Orbital fracture Status: Acute (3) Dementia Status: Chronic (4) Essential (primary) hypertension Status: Chronic
[2017-02-25] MEDS: Piperacillin/Tazobact 3.375 GM in Sodium Chloride 0.9% 100 ML IV SCH ×3 (09:06→16:29)
[2017-02-25 10:02] LABS: HEMATOCRIT 43.3 % (34.0-47.0); MEAN CELL VOLUME 92.5 fl (81.0-99.0); MEAN CORPUSCULAR HEMOGLOBIN 30.9 pg (27.0-31.0); MEAN CORPUSCULAR HGB CONC 33.4 g/dL (33.0-37.0); WHITE BLOOD COUNT 6.5 K/uL (4.8-10.8)
[2017-02-25 10:15] LABS: BLOOD UREA NITROGEN 9 mg/dl (7-17); CALCIUM 9.6 mg/dL (8.4-10.2); CARBON DIOXIDE 28 mmol/L (22-30); CHLORIDE 103 mmol/L (98-107); GFR AFRICAN-AMERICAN > 60; GLUCOSE,RANDOM 125 mg/dL (65-105); POTASSIUM 3.7 MMOL/L (3.6-5.0); SODIUM 142 mmol/l (132-148)
--- NOTE | 2017-02-25 12:06 | RAD ---
HISTORY: md order Open syncope COMPARISON: 12/17/2013. FINDINGS: LUNGS: No active pulmonary disease. PLEURA: No significant pleural effusion identified, no pneumothorax apparent. CARDIOVASCULAR: No radiographic findings to suggest acute or significant cardiovascular disease. OSSEOUS STRUCTURES: No significant abnormalities. VISUALIZED UPPER ABDOMEN: Normal. OTHER FINDINGS: None. IMPRESSION: No active disease. No significant interval change compared to the prior examination(s).
[2017-02-25] MEDS ORDERED: Propofol 10 mg/ml Inj (20 ML) ONE (19:58)
[2017-02-25] MEDS ORDERED: Midazolam 2 MG/2 ML VIAL ONE (19:59)
[2017-02-25] MEDS ORDERED: Rocuronium 10 mg/ml (5 ml) ONE (19:59)
--- NOTE | 2017-02-25 23:50 | CP.PCM.PN ---
Subjective - Date & Time of Evaluation Date of Evaluation: 02/25/17 Time of Evaluation: 09:00 - Subjective Subjective: going for sx late in noon, ate breakfast. family aware pateint looks comfortable notes she wants to get back to her routine life [facility] Objective - Vital Signs/Intake and Output Vital Signs (last 24 hours): Temp Pulse Resp BP Pulse Ox 98.4 F 82 18 112/69 96 02/25/17 23:48 02/25/17 23:48 02/25/17 23:48 02/25/17 23:48 02/25/17 23:48 Intake and Output: 02/25/17 02/26/17 18:59 06:59 Intake Total 680 Balance 680 - Medications Medications: Current Medications Aspirin (Ecotrin) 81 mg PO DAILY [facility] Last Admin: 02/23/17 08:48 Dose: 81 mg Donepezil HCl (Aricept) 5 mg PO DAILY [facility] Last Admin: 02/25/17 09:05 Dose: 5 mg Gabapentin (Neurontin) 100 mg PO BID [facility] Last Admin: 02/25/17 16:28 Dose: Not Given Hydroxyzine HCl (Atarax) 10 mg PO DAILY [facility] Last Admin: 02/25/17 09:06 Dose: 10 mg Piperacillin Sod/Tazobactam (Sod 3.375 gm/ Sodium Chloride) 100 mls @ 100 mls/ hr IV Q8 [facility] Last Admin: 02/25/17 16:29 Dose: 100 mls/hr - Labs Labs: 02/25/17 09:54 02/25/17 09:54 PT 10.5 SECONDS (9.6-11.2) 02/25/17 09:54 INR 1.01 (0.92-1.08) 02/25/17 09:54 APTT 24.7 SECONDS (23.3-32.5) 02/18/17 21:58 - Additional Findings Additional findings: - Additional Findings Additional findings: Constitutional Appears: No Acute Distress - Head Exam Additional comments: right eye-diffuse bluish discoloration able to open eye,lateral gaze impaired tender touch right side facial area - Eye Exam Eye Exam: EOMI (left eye), PERRL (left eye) - ENT Exam ENT Exam: Normal Exam - Neck Exam Neck exam: Negative for: Lymphadenopathy - Respiratory Exam Respiratory Exam: Clear to Auscultation Bilateral, NORMAL BREATHING PATTERN. absent: Accessory Muscle Use, Decreased Breath Sounds, Wheezes - Cardiovascular Exam Cardiovascular Exam: REGULAR RHYTHM, RRR, +S1, +S2 - GI/Abdominal Exam GI & Abdominal Exam: Normal Bowel Sounds, Soft. absent: Guarding, Organomegaly , Tenderness - Extremities Exam Extremities exam: Positive for: full ROM, pedal pulses present. Negative for: pedal edema - Back Exam Back exam: CVA tenderness (R). absent: CVA tenderness (L), paraspinal tenderness - Neurological Exam Neurological exam: Alert, Oriented x3 - Psychiatric Exam Psychiatric exam: Normal Affect, Normal Mood - Skin Skin Exam: Intact Assessment and Plan (1) Maxillary fracture Status: Acute (2) Orbital fracture Status: Acute (3) Dementia Status: Chronic (4) Essential (primary) hypertension Status: Chronic -NPO after breakfast ivf continue meds Assessment and Plan (1) Maxillary fracture Status: Acute (2) Orbital fracture Status: Acute (3) Dementia Status: Chronic (4) Essential (primary) hypertension Status: Chronic
[2017-02-26] MEDS: Piperacillin/Tazobact 3.375 GM in Sodium Chloride 0.9% 100 ML IV SCH ×2 (09:00→17:00)
--- NOTE | 2017-02-26 23:51 | CP.PCM.PN ---
Subjective - Date & Time of Evaluation Date of Evaluation: 02/26/17 Time of Evaluation: 09:00 - Subjective Subjective: sx was not happened ,as son notes she had eye burn during her UVB rx for psoriasis. he wants to hold it off for now. son at bed side . Objective - Vital Signs/Intake and Output Vital Signs (last 24 hours): Temp Pulse Resp BP Pulse Ox 98.4 F 73 20 139/80 96 02/26/17 20:00 02/26/17 21:00 02/26/17 20:00 02/26/17 20:00 02/26/17 20:00 - Medications Medications: Current Medications Aspirin (Ecotrin) 81 mg PO DAILY [facility] Last Admin: 02/23/17 08:48 Dose: 81 mg Donepezil HCl (Aricept) 5 mg PO DAILY [facility] Last Admin: 02/25/17 09:05 Dose: 5 mg Gabapentin (Neurontin) 100 mg PO BID [facility] Last Admin: 02/25/17 16:28 Dose: Not Given Hydroxyzine HCl (Atarax) 10 mg PO DAILY [facility] Last Admin: 02/25/17 09:06 Dose: 10 mg Piperacillin Sod/Tazobactam (Sod 3.375 gm/ Sodium Chloride) 100 mls @ 100 mls/ hr IV Q8 [facility] Last Admin: 02/25/17 16:29 Dose: 100 mls/hr - Labs Labs: 02/25/17 09:54 02/25/17 09:54 PT 10.5 SECONDS (9.6-11.2) 02/25/17 09:54 INR 1.01 (0.92-1.08) 02/25/17 09:54 APTT 24.7 SECONDS (23.3-32.5) 02/18/17 21:58 - Additional Findings Additional findings: - Additional Findings Additional findings: Constitutional Appears: No Acute Distress - Head Exam Additional comments: right eye-diffuse bluish discoloration able to open eye,lateral gaze impaired tender touch right side facial area - Eye Exam Eye Exam: EOMI (left eye), PERRL (left eye) - ENT Exam ENT Exam: Normal Exam - Neck Exam Neck exam: Negative for: Lymphadenopathy - Respiratory Exam Respiratory Exam: Clear to Auscultation Bilateral, NORMAL BREATHING PATTERN. absent: Accessory Muscle Use, Decreased Breath Sounds, Wheezes - Cardiovascular Exam Cardiovascular Exam: REGULAR RHYTHM, RRR, +S1, +S2 - GI/Abdominal Exam GI & Abdominal Exam: Normal Bowel Sounds, Soft. absent: Guarding, Organomegaly , Tenderness - Extremities Exam Extremities exam: Positive for: full ROM, pedal pulses present. Negative for: pedal edema - Back Exam Back exam: CVA tenderness (R). absent: CVA tenderness (L), paraspinal tenderness - Neurological Exam Neurological exam: Alert, Oriented x3 - Psychiatric Exam Psychiatric exam: Normal Affect, Normal Mood - Skin Skin Exam: Intact Assessment and Plan (1) Maxillary fracture Status: Acute (2) Orbital fracture Status: Acute (3) Dementia Status: Chronic (4) Essential (primary) hypertension Status: Chronic - Assessment and Plan (Free Text) Plan: miguel at bed side spoke to him detail called dermatology and awaiting for reply spoke to -as per him he can do sx, no relation with her previous condition
[2017-02-27] MEDS: Piperacillin/Tazobact 3.375 GM in Sodium Chloride 0.9% 100 ML IV SCH ×3 (01:04→16:26)
--- NOTE | 2017-02-27 23:45 | CP.PCM.PN ---
Subjective - Date & Time of Evaluation Date of Evaluation: 02/27/17 Time of Evaluation: 09:00 - Subjective Subjective: spoke to dermatology- notes she gets UVB for psoriasis, no obvious roldan noted spoke to [facility] labs noted Objective - Vital Signs/Intake and Output Vital Signs (last 24 hours): Temp Pulse Resp BP Pulse Ox 98.4 F 77 18 122/66 99 02/27/17 23:38 02/27/17 23:38 02/27/17 23:38 02/27/17 23:38 02/27/17 23:38 Intake and Output: 02/27/17 02/28/17 18:59 06:59 Intake Total 200 Output Total 2 Balance 198 - Medications Medications: Current Medications Aspirin (Ecotrin) 81 mg PO DAILY [facility] Last Admin: 02/23/17 08:48 Dose: 81 mg Donepezil HCl (Aricept) 5 mg PO DAILY [facility] Last Admin: 02/27/17 09:00 Dose: 5 mg Gabapentin (Neurontin) 100 mg PO BID [facility] Last Admin: 02/27/17 16:26 Dose: 100 mg Hydroxyzine HCl (Atarax) 10 mg PO DAILY [facility] Last Admin: 02/27/17 09:00 Dose: 10 mg Piperacillin Sod/Tazobactam (Sod 3.375 gm/ Sodium Chloride) 100 mls @ 100 mls/ hr IV Q8 [facility] Last Admin: 02/27/17 16:26 Dose: 100 mls/hr - Labs Labs: 02/25/17 09:54 02/25/17 09:54 PT 10.5 SECONDS (9.6-11.2) 02/25/17 09:54 INR 1.01 (0.92-1.08) 02/25/17 09:54 APTT 24.7 SECONDS (23.3-32.5) 02/18/17 21:58 - Additional Findings Additional findings: Constitutional Appears: No Acute Distress - Head Exam Additional comments: right eye-diffuse bluish discoloration able to open eye,lateral gaze impaired tender touch right side facial area - Eye Exam Eye Exam: EOMI (left eye), PERRL (left eye) - ENT Exam ENT Exam: Normal Exam - Neck Exam Neck exam: Negative for: Lymphadenopathy - Respiratory Exam Respiratory Exam: Clear to Auscultation Bilateral, NORMAL BREATHING PATTERN. absent: Accessory Muscle Use, Decreased Breath Sounds, Wheezes - Cardiovascular Exam Cardiovascular Exam: REGULAR RHYTHM, RRR, +S1, +S2 - GI/Abdominal Exam GI & Abdominal Exam: Normal Bowel Sounds, Soft. absent: Guarding, Organomegaly , Tenderness - Extremities Exam Extremities exam: Positive for: full ROM, pedal pulses present. Negative for: pedal edema - Back Exam Back exam: CVA tenderness (R). absent: CVA tenderness (L), paraspinal tenderness - Neurological Exam Neurological exam: Alert, Oriented x3 - Psychiatric Exam Psychiatric exam: Normal Affect, Normal Mood - Skin Skin Exam: Intact Assessment and Plan (1) Maxillary fracture Status: Acute (2) Orbital fracture Status: Acute (3) Dementia Status: Chronic (4) Essential (primary) hypertension Status: Chronic - Assessment and Plan (Free Text) Assessment: spoke to son in detail for sx in am keep NPO ivf
[2017-02-28] MEDS: Piperacillin/Tazobact 3.375 GM in Sodium Chloride 0.9% 100 ML IV SCH ×3 (01:00→10:11)
[2017-02-28 09:17] LABS: HEMATOCRIT 39.3 % (34.0-47.0); MEAN CELL VOLUME 92.9 fl (81.0-99.0); MEAN CORPUSCULAR HGB CONC 33.3 g/dL (33.0-37.0); RED CELL DISTRIBUTION WIDTH 14.8 % (11.5-14.5); WHITE BLOOD COUNT 6.1 K/uL (4.8-10.8)
[2017-02-28 10:01] LABS: POTASSIUM 3.5 MMOL/L (3.6-5.0)
[2017-02-28] MEDS: Dextrose 5%/0.9% NS 1,000 ML IV SCH (10:13)
[2017-02-28] MEDS ORDERED: Propofol 10 mg/ml Inj (20 ML) ONE (15:31)
[2017-02-28] MEDS ORDERED: Succinylcholine 200 mg/10 ml Inj IV ONE (15:32)
[2017-02-28] MEDS ORDERED: Rocuronium 10 mg/ml (5 ml) ONE (15:32)
[2017-02-28] MEDS ORDERED: Midazolam 2 MG/2 ML VIAL ONE (15:32)
[2017-02-28] MEDS ORDERED: Neostigmine Methylsulfate 3mg/3ml Syringe IV ONE (15:33)
[2017-02-28] MEDS ORDERED: Lactated Ringer's 1,000 ML IV ONE (15:40)
[2017-02-28] MEDS ORDERED: Lidocaine 2% w Epi 1:100,000 Inj IJ ONE ×2 (17:15→17:28)
[2017-02-28] MEDS ORDERED: Esmolol 100 mg/10ml Inj IV ONE (17:34)
[2017-02-28] MEDS ORDERED: Lactated Ringer's 500 ML IV ONE (19:12)
[2017-02-28] MEDS ORDERED: Labetalol 5mg/ml (4ml) ONE (19:28)
[2017-02-28] MEDS ORDERED: Labetalol 5mg/ml (4ml) IVP ONE (19:35)
[2017-02-28] MEDS ORDERED: Labetalol 5 mg/ml Inj 20ML IVP ONE (19:45)
--- NOTE | 2017-03-01 00:37 | CP.PCM.PN ---
Subjective - Date & Time of Evaluation Date of Evaluation: 02/28/17 Time of Evaluation: 07:00 - Subjective Subjective: going for sx today. labs reviwed. notes she is ok for sx no complaints. Objective - Vital Signs/Intake and Output Vital Signs (last 24 hours): Temp Pulse Resp BP Pulse Ox 97.7 F 77 18 121/87 98 02/28/17 23:39 02/28/17 23:39 02/28/17 23:39 02/28/17 23:39 02/28/17 23:39 Intake and Output: 02/28/17 03/01/17 18:59 06:59 Intake Total 1662 Balance 1662 - Medications Medications: Current Medications Aspirin (Ecotrin) 81 mg PO DAILY [facility] Last Admin: 02/23/17 08:48 Dose: 81 mg Donepezil HCl (Aricept) 5 mg PO DAILY [facility] Last Admin: 02/28/17 08:49 Dose: Not Given Gabapentin (Neurontin) 100 mg PO BID [facility] Last Admin: 02/28/17 18:00 Dose: Not Given Hydroxyzine HCl (Atarax) 10 mg PO DAILY [facility] Last Admin: 02/28/17 08:49 Dose: Not Given Dextrose/Sodium Chloride (Dextrose 5%/0.9% Ns 1000 Ml) 1,000 mls @ 50 mls/hr IV .Q20H [facility] Stop: 03/01/17 09:22 Last Admin: 02/28/17 10:13 Dose: 50 mls/hr Ketorolac Tromethamine (Toradol) 15 mg IVP Q6 PRN PRN Reason: Pain, severe (8-10) Last Admin: 02/28/17 22:54 Dose: 15 mg - Labs Labs: 02/28/17 08:30 02/28/17 08:30 PT 10.5 SECONDS (9.6-11.2) 02/25/17 09:54 INR 1.01 (0.92-1.08) 02/25/17 09:54 APTT 24.7 SECONDS (23.3-32.5) 02/18/17 21:58 - Additional Findings Additional findings: Constitutional Appears: No Acute Distress - Head Exam Additional comments: right eye-diffuse bluish discoloration able to open eye,lateral gaze impaired tender touch right side facial area - Eye Exam Eye Exam: EOMI (left eye), PERRL (left eye) - ENT Exam ENT Exam: Normal Exam - Neck Exam Neck exam: Negative for: Lymphadenopathy - Respiratory Exam Respiratory Exam: Clear to Auscultation Bilateral, NORMAL BREATHING PATTERN. absent: Accessory Muscle Use, Decreased Breath Sounds, Wheezes - Cardiovascular Exam Cardiovascular Exam: REGULAR RHYTHM, RRR, +S1, +S2 - GI/Abdominal Exam GI & Abdominal Exam: Normal Bowel Sounds, Soft. absent: Guarding, Organomegaly , Tenderness - Extremities Exam Extremities exam: Positive for: full ROM, pedal pulses present. Negative for: pedal edema - Back Exam Back exam: CVA tenderness (R). absent: CVA tenderness (L), paraspinal tenderness - Neurological Exam Neurological exam: Alert, Oriented x3 - Psychiatric Exam Psychiatric exam: Normal Affect, Normal Mood - Skin Skin Exam: Intact Assessment and Plan (1) Maxillary fracture Status: Acute (2) Orbital fracture Status: Acute (3) Dementia Status: Chronic (4) Essential (primary) hypertension Status: Chronic - Assessment and Plan (Free Text) Plan: for sx reassurance provided son aware of the process,agreed for sx.
[2017-03-01] MEDS: Dextrose 5%/0.9% NS 1,000 ML IV SCH (06:23)
--- NOTE | 2017-03-02 00:10 | CP.PCM.PN ---
Subjective - Date & Time of Evaluation Date of Evaluation: 03/01/17 Time of Evaluation: 07:00 - Subjective Subjective: k-3.5, s\p sx day-1, c\o mild discomfort.otherwise feeling ok. Objective - Vital Signs/Intake and Output Vital Signs (last 24 hours): Temp Pulse Resp BP Pulse Ox 98.6 F 56 L 20 172/87 H 99 03/02/17 00:07 03/02/17 00:07 03/02/17 00:07 03/02/17 00:07 03/02/17 00:07 Intake and Output: 03/01/17 03/02/17 18:59 06:59 Intake Total 30 Balance 30 - Medications Medications: Current Medications Aspirin (Ecotrin) 81 mg PO DAILY [facility] Last Admin: 02/23/17 08:48 Dose: 81 mg Donepezil HCl (Aricept) 5 mg PO DAILY [facility] Last Admin: 03/01/17 12:21 Dose: Not Given Gabapentin (Neurontin) 100 mg PO BID [facility] Last Admin: 03/01/17 21:14 Dose: 100 mg Hydroxyzine HCl (Atarax) 10 mg PO DAILY [facility] Last Admin: 03/01/17 12:21 Dose: Not Given Ketorolac Tromethamine (Toradol) 15 mg IVP Q6 PRN PRN Reason: Pain, severe (8-10) Last Admin: 03/01/17 12:20 Dose: 15 mg Potassium Chloride (K-Dur 20 Meq Er Tab) 20 meq PO DAILY [facility] - Labs Labs: 02/28/17 08:30 02/28/17 08:30 PT 10.5 SECONDS (9.6-11.2) 02/25/17 09:54 INR 1.01 (0.92-1.08) 02/25/17 09:54 APTT 24.7 SECONDS (23.3-32.5) 02/18/17 21:58 - Additional Findings Additional findings: Constitutional Appears: No Acute Distress - Head Exam Additional comments: right eye- dressing intact, not soiled mild tender touch right side facial area - Eye Exam Eye Exam: EOMI (left eye), PERRL (left eye) - ENT Exam ENT Exam: Normal Exam - Neck Exam Neck exam: Negative for: Lymphadenopathy - Respiratory Exam Respiratory Exam: Clear to Auscultation Bilateral, NORMAL BREATHING PATTERN. absent: Accessory Muscle Use, Decreased Breath Sounds, Wheezes - Cardiovascular Exam Cardiovascular Exam: REGULAR RHYTHM, RRR, +S1, +S2 - GI/Abdominal Exam GI & Abdominal Exam: Normal Bowel Sounds, Soft. absent: Guarding, Organomegaly , Tenderness - Extremities Exam Extremities exam: Positive for: full ROM, pedal pulses present. Negative for: pedal edema - Back Exam Back exam: CVA tenderness (R). absent: CVA tenderness (L), paraspinal tenderness - Neurological Exam Neurological exam: Alert, Oriented x3 - Psychiatric Exam Psychiatric exam: Normal Affect, Normal Mood - Skin Skin Exam: Intact Assessment and Plan (1) Maxillary fracture Status: Acute (2) Orbital fracture Status: Acute (3) Dementia Status: Chronic (4) Essential (primary) hypertension Status: Chronic - Assessment and Plan (Free Text) Plan: s\p sx- tolerated well for rehab in am if cleared by [facility] continue meds replace K
[2017-03-02] MEDS ORDERED: Potassium Chloride 20 mEq ER Tab PO SCH (09:00)
[2017-03-02] MEDS ORDERED: Povidone Iodine Topical 10% Sol ONE (12:26)
--- NOTE | 2017-03-02 12:47 | CP.PCM.PCO ---
Assessment/Plan - Assessment and Plan (Free Text) Plan: Patient seen and examined Alert awake disoriented. Dressing discussed with Dr Charlton. Incision site below right eye covered with steristrips, cleaned with Betadine. No signs of infection, edema noted, no drainage. Patient to follow with dr Charlton in 1 week, no new scripts as per dr charlton plan discussed with dr cheney. .
[2017-03-02 16:13] VITALS: BP 123/83; PULSE 91; RESP 20; TEMP 98.7; O2SAT 96
--- NOTE | 2017-03-11 21:02 | CP.PCM.DIS ---
Provider - Provider Date of Admission: 02/18/17 22:43 Attending physician: Maria Elena Tyson MD Time Spent in preparation of Discharge (in minutes): 30 Diagnosis - Discharge Diagnosis (1) Maxillary fracture Status: Acute (2) Orbital fracture Status: Acute (3) Dementia Status: Chronic (4) Essential (primary) hypertension Status: Chronic Comment: S\O sx day-3. [facility] cleared patient Hospital Course - Lab Results Lab Results: Most Recent Lab Values WBC 6.1 K/uL (4.8-10.8) 02/28/17 08:30 RBC 4.22 Mil/uL (3.80-5.20) 02/28/17 08:30 Hgb 13.1 g/dL (12.0-16.0) 02/28/17 08:30 Hct 39.3 % (34.0-47.0) 02/28/17 08:30 MCV 92.9 fl (81.0-99.0) 02/28/17 08:30 MCH 31.0 pg (27.0-31.0) 02/28/17 08:30 MCHC 33.3 g/dL (33.0-37.0) 02/28/17 08:30 RDW 14.8 % (11.5-14.5) H 02/28/17 08:30 Plt Count 205 K/uL (130-400) 02/28/17 08:30 MPV 8.8 fl (7.2-11.7) 02/22/17 06:00 Neut % (Auto) 58.1 % (50.0-75.0) 02/22/17 06:00 Lymph % (Auto) 24.8 % (20.0-40.0) 02/22/17 06:00 [place] % (Auto) 11.7 % (0.0-10.0) H 02/22/17 06:00 Eos % (Auto) 4.4 % (0.0-4.0) H 02/22/17 06:00 Baso % (Auto) 1.0 % (0.0-2.0) 02/22/17 06:00 Neut # 3.9 K/uL (1.8-7.0) 02/22/17 06:00 Lymph # 1.7 K/uL (1.0-4.3) 02/22/17 06:00 [place] # 0.8 K/uL (0.0-0.8) 02/22/17 06:00 Eos # 0.3 K/uL (0.0-0.7) 02/22/17 06:00 Baso # 0.1 K/uL (0.0-0.2) 02/22/17 06:00 PT 10.5 SECONDS (9.6-11.2) 02/25/17 09:54 INR 1.01 (0.92-1.08) 02/25/17 09:54 APTT 24.7 SECONDS (23.3-32.5) 02/18/17 21:58 Sodium 138 mmol/l (132-148) 02/28/17 08:30 Potassium 3.5 MMOL/L (3.6-5.0) L 02/28/17 08:30 Chloride 105 mmol/L (98-107) 02/28/17 08:30 Carbon Dioxide 25 mmol/L (22-30) 02/28/17 08:30 Anion Gap 12 (10-20) 02/28/17 08:30 BUN 13 mg/dl (7-17) 02/28/17 08:30 Creatinine 1.1 mg/dL (0.7-1.2) 02/28/17 08:30 Est GFR ( Amer) 57 02/28/17 08:30 Est GFR (Non-Af Amer) 47 02/28/17 08:30 Random Glucose 82 mg/dL (65-105) 02/28/17 08:30 Calcium 9.0 mg/dL (8.4-10.2) 02/28/17 08:30 Total Bilirubin 0.5 mg/dl (0.2-1.3) 02/22/17 06:00 AST 30 U/L (14-36) 02/22/17 06:00 ALT 31 U/L (9-52) 02/22/17 06:00 Alkaline Phosphatase 76 U/L (38-126) 02/22/17 06:00 Total Creatine Kinase 39 U/L (30-135) 02/18/17 00:01 Troponin I 0.0400 ng/mL (0.00-0.120) 02/19/17 15:14 Total Protein 7.0 G/DL (6.3-8.2) 02/22/17 06:00 Albumin 3.5 g/dL (3.5-5.0) 02/22/17 06:00 Globulin 3.4 gm/dL (2.2-3.9) 02/22/17 06:00 Albumin/Globulin Ratio 1.0 (1.0-2.1) 02/22/17 06:00 TSH 3rd Generation 1.22 mIU/ML (0.46-4.68) 02/19/17 06:50 Urine Color Straw (YELLOW) 02/18/17 22:47 Urine Clarity Clear (Clear) 02/18/17 22:47 Urine pH 8.0 (5.0-8.0) 02/18/17 22:47 Ur Specific [place] 1.008 (1.003-1.030) 02/18/17 22:47 Urine Protein 30 mg/dL (NEGATIVE) 02/18/17 22:47 Urine Glucose (UA) Neg mg/dL (Normal) 02/18/17 22:47 Urine Ketones Negative mg/dL (NEGATIVE) 02/18/17 22:47 Urine Blood Negative (NEGATIVE) 02/18/17 22:47 Urine Nitrate Negative (NEGATIVE) 02/18/17 22:47 Urine Bilirubin Negative (NEGATIVE) 02/18/17 22:47 Urine Urobilinogen 0.2-1.0 mg/dL (0.2-1.0) 02/18/17 22:47 Ur Leukocyte Esterase Neg Remy/uL (Negative) 02/18/17 22:47 Urine RBC (Auto) 1 /hpf (0-3) 02/18/17 22:47 Urine Microscopic WBC 1 /hpf (0-5) 02/18/17 22:47 Blood Type O POSITIVE 02/23/17 16:15 Blood Type Confirm O POSITIVE 02/23/17 18:42 Antibody Screen Negative 02/23/17 16:15 BBK History Checked No verified bt 02/23/17 16:15 - Hospital Course Hospital Course: uneventful Discharge Exam - Additional Findings Additional findings: Constitutional Appears: No Acute Distress - Head Exam Additional comments: right eye- selvin orbital dressing steristrips intact - Eye Exam Eye Exam: EOMI (left eye), PERRL (left eye) - ENT Exam ENT Exam: Normal Exam - Neck Exam Neck exam: Negative for: Lymphadenopathy - Respiratory Exam Respiratory Exam: Clear to Auscultation Bilateral, NORMAL BREATHING PATTERN. absent: Accessory Muscle Use, Decreased Breath Sounds, Wheezes - Cardiovascular Exam Cardiovascular Exam: REGULAR RHYTHM, RRR, +S1, +S2 - GI/Abdominal Exam GI & Abdominal Exam: Normal Bowel Sounds, Soft. absent: Guarding, Organomegaly , Tenderness - Extremities Exam Extremities exam: Positive for: full ROM, pedal pulses present. Negative for: pedal edema - Back Exam Back exam: CVA tenderness (R). absent: CVA tenderness (L), paraspinal tenderness - Neurological Exam Neurological exam: Alert, Oriented x3 - Psychiatric Exam Psychiatric exam: Normal Affect, Normal Mood - Skin Skin Exam: Intact Discharge Plan - Follow Up Plan Condition: FAIR Disposition: TRANSF TO SNF Instructions: Syncope (DC), Syncope (GEN) Additional Instructions: follow with dr charlton 10 days call for appt [phone]
== END 2017-03-02 15:45 | DRG 131 ==
LOC: H.ER 20:44 → H.ERHOLD 22:43 → H.TEL 02-19 04:50
PROVIDERS: ADMIT Internal Medicine; ATTEND Internal Medicine
PROC: 0WQ2XZZ Repair Face, External Approach (ICD-10-PCS; principal; 2017-02-18)
PROC: 3E0234Z Introduction of Serum, Toxoid and Vaccine into Muscle, Percutaneous Approach (ICD-10-PCS; 2017-02-18)
PROC: 0NSP04Z Reposition Right Orbit with Internal Fixation Device, Open Approach (ICD-10-PCS; 2017-02-28)
PROC: 0NUP0JZ Supplement Right Orbit with Synthetic Substitute, Open Approach (ICD-10-PCS; 2017-02-28)
DX: S02.40CA Maxillary fracture, right side, initial encounter for closed fracture (principal); S02.31XA Fracture of orbital floor, right side, initial encounter for closed fracture; F03.90 Unspecified dementia, unspecified severity, without behavioral disturbance, psychotic disturbance, mood disturbance, and anxiety; S02.101A Fracture of base of skull, right side, initial encounter for closed fracture; S02.2XXA Fracture of nasal bones, initial encounter for closed fracture; H54.42 Blindness, left eye, normal vision right eye; W08.XXXA Fall from other furniture, initial encounter; Y93.9 Activity, unspecified; Y92.89 Other specified places as the place of occurrence of the external cause; S01.411A Laceration without foreign body of right cheek and temporomandibular area, initial encounter; Z23 Encounter for immunization; I10 Essential (primary) hypertension; M19.90 Unspecified osteoarthritis, unspecified site

== ENCOUNTER 2018-03-11 14:05 | Emergency (ER) | payer MEDICARE, OTHER ==
[2018-03-11 14:16] VITALS: TEMP 98.7
--- NOTE | 2018-03-11 15:08 | ED PDOC ---
HPI: Psych/Substance Abuse Time Seen by Provider: 03/11/18 15:04 Chief Complaint (Nursing): Psychiatric Evaluation Chief Complaint (Provider): ANXIET History Per: Patient (87 Y/O FEMALE HERE FOR SCREAMING EPISODE NOTED BY NEIGHBORS. PATIENT HAS H/O DEMENTIA AND WAS WORRIED WHEN SON WAS NOT THERE. SON STATES SHE HAS RECENTLY HAS HAD ANXIETY ATTACKS SECONDARY TO HIM NOT BEING IN HOUSE. PATIENT IS NOTED TO HAVE HAD HEAD INJURY YESTERDAY FROM TRIP AND FALL AND LANDING ON FACE. NO LOC AT THAT TIME. SON PLANS TO F/U WITH HER PSYCHIATRIST FOR ADJUSTMENT TO HER MEDICATIONS. ) Past Medical History Reviewed: Historical Data, Nursing Documentation, Vital Signs Vital Signs: Last Vital Signs Temp 98.7 F 03/11/18 14:10 Pulse 103 H 03/11/18 14:10 Resp 18 03/11/18 14:10 BP 140/77 03/11/18 14:10 Pulse Ox 97 03/11/18 14:10 - Medical History PMH: Arthritis, Dementia, HTN Denies: HIV, Chronic Kidney Disease - Family History Family History: States: Unknown Family Hx - Home Medications Home Medications: Ambulatory Orders Medication Instructions Recorded Acitretin 25 mg PO DAILY 02/18/17 Aspirin [Lo-Dose Aspirin EC] 81 mg PO DAILY 02/18/17 Donepezil HCl [Aricept] 5 mg PO DAILY 02/18/17 Donepezil [Aricept] 10 mg PO DAILY 02/18/17 Gabapentin [Neurontin] 100 mg PO BID 02/18/17 amLODIPine [Norvasc] 5 mg PO DAILY 02/18/17 hydrOXYzine HCl [Atarax] 10 mg PO DAILY 02/18/17 Nitrofurantoin Macrocrystals 100 mg PO BID #14 cap 03/11/18 [Macrobid] - Allergies Allergies/Adverse Reactions: Allergies Allergy/AdvReac Type Severity Reaction Status Date / Time No Known Allergies Allergy Verified 03/11/18 14:10 Review of Systems ROS Statement: Except As Marked, All Systems Reviewed And Found Negative Physical Exam - Reviewed Nursing Documentation Reviewed: Yes Vital Signs Reviewed: Yes - Physical Exam Appears: Positive for: Well, Non-toxic, No Acute Distress Head Exam: Positive for: NORMAL INSPECTION, NORMOCEPHALIC. Negative for: ATRAUMATIC (ECCHYMOSIS RIGHT FACIAL REGION) Skin: Positive for: Normal Color, Warm, DRY Eye Exam: Positive for: EOMI, Normal appearance, PERRL ENT: Positive for: Normal ENT Inspection Neck: Positive for: Normal, Painless ROM Cardiovascular/Chest: Positive for: Regular Rate, Rhythm Respiratory: Positive for: CNT, Normal Breath Sounds Gastrointestinal/Abdominal: Positive for: Normal Exam, Soft Back: Positive for: Normal Inspection Extremity: Positive for: Normal ROM Neurologic/Psych: Positive for: Alert, Oriented - Laboratory Results Result Diagrams: 03/11/18 15:25 03/11/18 15:25 - ECG O2 Sat by Pulse Oximetry: 97 - Progress ED Course And Treament: CT ORBIT/FACIAL: IMPRESSION: Satisfactory postoperative status. No new/ acute fractures identified. CT HEAD: IMPRESSION: No acute intracranial abnormalities. No significant findings to account for the clinical presentation. No significant interval change compared to the prior examination(s). CXR: NAD MACROBID 100MG X 1 DOSE Disposition - Clinical Impression Clinical Impression: UTI (urinary tract infection), Anxiety - Patient ED Disposition Is Patient to be Admitted: No - Disposition Disposition: Routine/Home Disposition Time: 16:33 Condition: FAIR Prescriptions: Nitrofurantoin Macrocrystals [Macrobid] 100 mg PO BID #14 cap Instructions: Urinary Tract Infection, Adult (DC), Anxiety, Adult (DC)
--- NOTE | 2018-03-11 15:35 | RAD ---
HISTORY: ROUTINE COMPARISON: 02/24/2017 FINDINGS: LUNGS: No active pulmonary disease. PLEURA: No significant pleural effusion identified, no pneumothorax apparent. CARDIOVASCULAR: No radiographic findings to suggest acute or significant cardiovascular disease. OSSEOUS STRUCTURES: No significant abnormalities. VISUALIZED UPPER ABDOMEN: Normal. OTHER FINDINGS: None. IMPRESSION: No active disease. No significant interval change compared to the prior examination(s).
[2018-03-11 15:37] LABS: BASO % 0.7 % (0.0-2.0); EOS % 0.1 % (0.0-4.0); HEMOGLOBIN 14.6 g/dL (12.0-16.0); LYMPH # 0.7 K/uL (1.0-4.3); MEAN CELL VOLUME 94.5 fl (81.0-99.0); MEAN CORPUSCULAR HEMOGLOBIN 31.4 pg (27.0-31.0); MEAN CORPUSCULAR HGB CONC 33.2 g/dL (33.0-37.0); MEAN PLATELET VOLUME 8.4 fl (7.2-11.7); MONO # 0.4 K/uL (0.0-0.8); MONO % 5.4 % (0.0-10.0); NEUT # 5.5 K/uL (1.8-7.0); NEUT % 82.8 % (50.0-75.0); RBC 4.66 Mil/uL (3.80-5.20); RED CELL DISTRIBUTION WIDTH 14.2 % (11.5-14.5); WHITE BLOOD COUNT 6.6 K/uL (4.8-10.8)
[2018-03-11 15:41] LABS: ALB/GLOB RATIO 1.1 (1.0-2.1); ALBUMIN 4.1 g/dL (3.5-5.0); ALT/SGPT 36 U/L (9-52); AST/SGOT 33 U/L (14-36); BLOOD UREA NITROGEN 15 mg/dl (7-17); CALCIUM 9.3 mg/dL (8.4-10.2); GFR AFRICAN-AMERICAN > 60; GFR NON-AFRICAN AMERICAN 59
--- NOTE | 2018-03-11 15:59 | CT ---
PROCEDURE: CT HEAD WITHOUT CONTRAST. HISTORY: HEAD INJURY COMPARISON: 02/18/2017 TECHNIQUE: Axial computed tomography images were obtained through the head/brain without intravenous contrast. Coronal and sagittal reconstructed images. Radiation dose: Total exam DLP = 690.91 mGy-cm. This CT exam was performed using one or more of the following dose reduction techniques: Automated exposure control, adjustment of the mA and/or kV according to patient size, and/or use of iterative reconstruction technique. FINDINGS: HEMORRHAGE: No intracranial hemorrhage. BRAIN: No mass effect or edema. Cortical AND CEREBELLAR atrophy, periventricular small vessel disease. VENTRICLES: Unremarkable. No hydrocephalus. CALVARIUM: Unremarkable. PARANASAL SINUSES: Unremarkable as visualized. No significant inflammatory changes. MASTOID AIR CELLS: Unremarkable as visualized. No inflammatory changes. OTHER FINDINGS: Incompletely visualize postoperative findings related to prior right facial fractures. AllPOSTOPERATIVE FINDINGS INCOMPLETELY VISUALIZED IMPRESSION: No acute intracranial abnormalities. No significant findings to account for the clinical presentation. No significant interval change compared to the prior examination(s).
--- NOTE | 2018-03-11 16:06 | CT ---
PROCEDURE: CT MAXILLOFACIAL BONES WITHOUT CONTRAST HISTORY: FACIAL INJURY COMPARISON: 02/18/2017. Summary of findings on the comparison examination: Nondisplaced right zygomatic arch fracture. Mild decompressed flexure floor of right orbit. Mildly depressed fracture anterior wall of right maxillary sinus. Mildly displaced posterior lateral wall of right maxillary sinus. Nondisplaced fracture lateral wall of right orbit TECHNIQUE: Contiguous axial CT images of the maxillofacial bones were obtained. Coronal and sagittal reformats were generated. Radiation dose: Total exam DLP = 730.88 mGy-cm. This CT exam was performed using one or more of the following dose reduction techniques: Automated exposure control, adjustment of the mA and/or kV according to patient size, and/or use of iterative reconstruction technique. FINDINGS: NASAL BONES: Unremarkable. ORBITS: Unremarkable. PARANASAL SINUSES/ MASTOIDS: Clear. MAXILLA: Postoperative findings related to repair of anterior wall of right orbit fracture. These extend to the floor of the orbit. MANDIBLE/ TEMPOROMANDIBULAR JOINTS: No acute findings SKULL BASE: Unremarkable. TEMPORAL BONES: Middle ears and mastoid grossly unremarkable. OTHER FINDINGS: None. IMPRESSION: Satisfactory postoperative status. No new/ acute fractures identified.
[2018-03-11 16:15] LABS: SQUAMOUS EPITHIAL 4 /hpf (0-5); URINE BILIRUBIN NEGATIVE (NEGATIVE); URINE BLOOD NEGATIVE (NEGATIVE); URINE CLARITY SLIGHTY-CLOUDY (Clear); URINE COLOR YELLOW (YELLOW); URINE GLUCOSE (UA) NEG (Normal); URINE LEUKOCYTE ESTERASE MOD Leu/uL (Negative); URINE PROTEIN NEGATIVE (NEGATIVE); URINE UROBILINOGEN 0.2-1.0 mg/dL (0.2-1.0)
[2018-03-11 17:06] VITALS: BP 134/68; PULSE 90; RESP 16; O2SAT 98
== END 2018-03-11 17:04 | disposition home or self-care (01) ==
LOC: H.ER 14:05
DX: S09.93XA Unspecified injury of face, initial encounter (principal); S09.90XA Unspecified injury of head, initial encounter; W01.0XXA Fall on same level from slipping, tripping and stumbling without subsequent striking against object, initial encounter; Y92.89 Other specified places as the place of occurrence of the external cause; N39.0 Urinary tract infection, site not specified; F41.9 Anxiety disorder, unspecified; F03.90 Unspecified dementia, unspecified severity, without behavioral disturbance, psychotic disturbance, mood disturbance, and anxiety; I10 Essential (primary) hypertension; Z79.82 Long term (current) use of aspirin

== ENCOUNTER 2018-11-07 10:12 | Emergency (ER) | payer MEDICARE, OTHER ==
[2018-11-07 10:16] VITALS: O2SAT 99
--- NOTE | 2018-11-07 10:55 | ED PDOC ---
HPI: General Adult Time Seen by Provider: 11/07/18 10:19 Chief Complaint (Nursing): Pain, Chronic Chief Complaint (Provider): Chronic Pain and Weakness History Per: Patient History/Exam Limitations: no limitations Onset/Duration Of Symptoms: Days Current Symptoms Are (Timing): Still Present Additional Complaint(s): 88 year old male with PMHx of Alzheimers, dementia, rheumatoid arthritis, HTN and enlarged heart presents to the ED for an evaluation of weakness and chronic body pain. As per son, on Thursday, patient had a panic attack for 15 minutes which subsided. The following day, the patient was well but she felt tired. Today, patient woke up with upset stomach and she was shaking and moaning in bed. Patient lives with her son. Otherwise, she denies cough, vomiting, diarrhea, fall or chills. PMD: Dr. Villaseñor Past Medical History Reviewed: Historical Data, Nursing Documentation, Vital Signs Vital Signs: Last Vital Signs Temp 98.3 F 11/07/18 10:15 Pulse 90 11/07/18 10:15 Resp 20 11/07/18 10:15 BP 147/94 H 11/07/18 10:15 Pulse Ox 99 11/07/18 10:15 - Medical History PMH: Arthritis, Dementia, HTN Denies: HIV, Chronic Kidney Disease - Surgical History Other surgeries: surgery on the eye s/p fall - Family History Family History: States: Unknown Family Hx - Home Medications Home Medications: Ambulatory Orders Medication Instructions Recorded Acitretin 25 mg PO DAILY 02/18/17 Aspirin [Lo-Dose Aspirin EC] 81 mg PO DAILY 02/18/17 Donepezil HCl [Aricept] 5 mg PO DAILY 02/18/17 Donepezil [Aricept] 10 mg PO DAILY 02/18/17 Gabapentin [Neurontin] 100 mg PO BID 02/18/17 amLODIPine [Norvasc] 5 mg PO DAILY 02/18/17 hydrOXYzine HCl [Atarax] 10 mg PO DAILY 02/18/17 Cephalexin [Keflex] 500 mg PO TID #15 capsule 03/11/18 Sulfamethoxazole/Trimethoprim 1 tab PO BID #14 tab 11/07/18 [Bactrim DS 800 mg-160 mg] - Allergies Allergies/Adverse Reactions: Allergies Allergy/AdvReac Type Severity Reaction Status Date / Time No Known Allergies Allergy Verified 03/11/18 14:10 Review of Systems ROS Statement: Except As Marked, All Systems Reviewed And Found Negative Constitutional: Negative for: Chills Respiratory: Negative for: Cough Gastrointestinal: Positive for: Abdominal Pain. Negative for: Nausea, Vomiting, Diarrhea Neurological: Positive for: Weakness Psych: Positive for: Anxiety Physical Exam - Reviewed Nursing Documentation Reviewed: Yes Vital Signs Reviewed: Yes - Physical Exam Appears: Positive for: Well, Non-toxic, No Acute Distress Head Exam: Positive for: ATRAUMATIC, NORMAL INSPECTION, NORMOCEPHALIC Skin: Positive for: Normal Color, Warm, Dry. Negative for: Rash Eye Exam: Positive for: EOMI, Normal appearance, PERRL ENT: Positive for: Normal ENT Inspection Neck: Positive for: Normal, Painless ROM, Supple. Negative for: Decreased ROM Cardiovascular/Chest: Positive for: Regular Rate, Rhythm Respiratory: Positive for: Normal Breath Sounds. Negative for: Decreased Breath Sounds, Wheezing, Respiratory Distress Gastrointestinal/Abdominal: Positive for: Soft, Tenderness (epigatric) Back: Positive for: Normal Inspection. Negative for: L CVA Tenderness, R CVA Tenderness Extremity: Positive for: Normal ROM. Negative for: Tenderness, Pedal Edema, Deformity Neurologic/Psych: Positive for: Alert, Oriented (x3) - Laboratory Results Result Diagrams: 11/07/18 10:50 11/07/18 10:50 - ECG ECG: Positive for: Viewed By Vt ECG Rhythm: Positive for: Normal QRS, Left Bundle Branch Block (no change when compared to EKG from 2017 in chart.) O2 Sat by Pulse Oximetry: 99 (RA) Pulse Ox Interpretation: Normal - Radiology X-Ray: Viewed By Vt X-Ray Interpretation: No Acute Disease - Progress Re-evaluation Time: 12:30 Condition: Improved Medical Decision Making Medical Decision Making: Time: 1030 Initial Plan: EKG BNP CMP CBC w/ Differential Chest Portable [RAD] IV Insertion Urinalysis Reevaluation Scribe Attestation: Documented by Frankie Jeter, acting as a scribe for Lizzie Bey MD. Provider Scribe Attestation: All medical record entries made by the Scribe were at my direction and personally dictated by me. I have reviewed the chart and agree that the record accurately reflects my personal performance of the history, physical exam, medical decision making, and the department course for this patient. I have also personally directed, reviewed, and agree with the discharge instructions and disposition. Disposition - Clinical Impression Clinical Impression: UTI (urinary tract infection) - Patient ED Disposition Is Patient to be Admitted: No Doctor Will See Patient In The: Office Counseled Patient/Family Regarding: Diagnosis, Need For Followup, Rx Given - Disposition Disposition: Routine/Home Disposition Time: 12:30 Condition: STABLE Prescriptions: Sulfamethoxazole/Trimethoprim [Bactrim DS 800 mg-160 mg] 1 tab PO BID #14 tab Instructions: Urinary Tract Infections in Adults Forms: [facility] (Kinyar[place]anda) - POA Present On Arrival: None
[2018-11-07 11:13] LABS: BASO # 0.1 K/uL (0.0-0.2); BASO % 0.8 % (0.0-2.0); EOS % 0.3 % (0.0-4.0); HEMOGLOBIN 15.1 g/dL (12.0-16.0); LYMPH # 1.3 K/uL (1.0-4.3); LYMPH % 21.1 % (20.0-40.0); MEAN CELL VOLUME 91.1 fl (81.0-99.0); MEAN CORPUSCULAR HEMOGLOBIN 30.4 pg (27.0-31.0); MEAN CORPUSCULAR HGB CONC 33.4 g/dL (33.0-37.0); MEAN PLATELET VOLUME 8.8 fl (7.2-11.7); MONO # 0.4 K/uL (0.0-0.8); MONO % 6.4 % (0.0-10.0); NEUT # 4.4 K/uL (1.8-7.0); NEUT % 71.4 % (50.0-75.0); RBC 4.97 Mil/uL (3.80-5.20); RED CELL DISTRIBUTION WIDTH 14.3 % (11.5-14.5); WHITE BLOOD COUNT 6.1 K/uL (4.8-10.8)
[2018-11-07 12:00] LABS: SQUAMOUS EPITHIAL 1 /hpf (0-5); URINE AMORPHOUS SEDIMENT RARE /ul (<OCC); URINE BILIRUBIN NEGATIVE (NEGATIVE); URINE BLOOD SMALL (NEGATIVE); URINE CLARITY CLOUDY (Clear); URINE COLOR YELLOW (YELLOW); URINE GLUCOSE (UA) NEG (NEGATIVE); URINE LEUKOCYTE ESTERASE MOD Leu/uL (Negative); URINE PROTEIN 100 mg/dL (NEGATIVE); URINE UROBILINOGEN 0.2-1.0 mg/dL (0.2-1.0)
[2018-11-07 12:06] LABS: ALB/GLOB RATIO 1.1 (1.0-2.1); ALBUMIN 4.3 g/dL (3.5-5.0); CALCIUM 9.6 mg/dL (8.4-10.2)
[2018-11-07 12:46] VITALS: BP 138/88; PULSE 97; RESP 16; TEMP 97.9
--- NOTE | 2018-11-07 15:05 | RAD ---
Date of service: 11/07/2018 HISTORY: generalized weakness COMPARISON: Comparison is made with 03/11/2018 FINDINGS: LUNGS: No evidence of new infiltrate or consolidation in the lungs. PLEURA: No significant pleural effusion identified, no pneumothorax apparent. CARDIOVASCULAR: No aortic atherosclerotic calcification present. Normal cardiac size. No pulmonary vascular congestion. OSSEOUS STRUCTURES: No significant abnormalities. VISUALIZED UPPER ABDOMEN: Normal. OTHER FINDINGS: None. IMPRESSION: No active disease.
--- NOTE | 2018-11-07 21:37 | CARD ---
APPROVED REPORT Date of service: 11/07/2018 EKG Measurement Heart [id number] <Conclusion> Normal sinus rhythm Left bundle branch block Abnormal ECG
== END 2018-11-07 13:00 | disposition home or self-care (01) ==
LOC: H.ER 10:12
DX: N39.0 Urinary tract infection, site not specified (principal); F02.80 Dementia in other diseases classified elsewhere, unspecified severity, without behavioral disturbance, psychotic disturbance, mood disturbance, and anxiety; G89.29 Other chronic pain; G30.9 Alzheimer's disease, unspecified; I10 Essential (primary) hypertension; M06.9 Rheumatoid arthritis, unspecified

== ENCOUNTER 2019-02-22 10:45 | Inpatient (IN) | payer MEDICARE, OTHER ==
--- NOTE | 2019-02-22 11:41 | ED PDOC ---
HPI: General Adult Time Seen by Provider: 02/22/19 11:12 Chief Complaint (Nursing): Flu-like Symptoms History Per: Family Onset/Duration Of Symptoms: Days (2) Current Symptoms Are (Timing): Intermittent Episodes Additional Complaint(s): Brought by family for new onset of urinary and bowel incontinence intermittently over past 2 days. Pt has been confused but has h/o Alzheimers Dementia and family is unclear if confusion has worsened. Denies fever. No vomiting or diarrhea.. Past Medical History Vital Signs: Last Vital Signs Temp 97.9 F 02/22/19 11:18 Pulse 92 H 02/22/19 11:18 Resp 19 02/22/19 11:18 BP 135/86 02/22/19 11:18 Pulse Ox 94 L 02/22/19 11:18 Primary Care Provider: Non [facility] Provider, - Medical History PMH: Alzheimer's Disease, Arthritis, Dementia, HTN Denies: HIV, Chronic Kidney Disease Other PMH: Psoriasis - Family History Family History: States: Unknown Family Hx - Home Medications Home Medications: Ambulatory Orders Medication Instructions Recorded Acitretin 25 mg PO DAILY 02/18/17 Aspirin [Lo-Dose Aspirin EC] 81 mg PO DAILY 02/18/17 Donepezil HCl [Aricept] 5 mg PO DAILY 02/18/17 Donepezil [Aricept] 10 mg PO DAILY 02/18/17 Gabapentin [Neurontin] 100 mg PO BID 02/18/17 amLODIPine [Norvasc] 5 mg PO DAILY 02/18/17 hydrOXYzine HCl [Atarax] 10 mg PO DAILY 02/18/17 Cephalexin [Keflex] 500 mg PO TID #15 capsule 03/11/18 Sulfamethoxazole/Trimethoprim 1 tab PO BID #14 tab 11/07/18 [Bactrim DS 800 mg-160 mg] - Allergies Allergies/Adverse Reactions: Allergies Allergy/AdvReac Type Severity Reaction Status Date / Time No Known Allergies Allergy Verified 03/11/18 14:10 Review of Systems ROS Statement: Except As Marked, All Systems Reviewed And Found Negative Constitutional: Negative for: Fever Gastrointestinal: Negative for: Vomiting, Diarrhea Genitourinary Female: Positive for: Incontinence Physical Exam - Reviewed Nursing Documentation Reviewed: Yes Vital Signs Reviewed: Yes - Physical Exam Appears: Positive for: Non-toxic, No Acute Distress Head Exam: Positive for: ATRAUMATIC, NORMAL INSPECTION, NORMOCEPHALIC Skin: Positive for: Warm, Rash (Inguinal erythema bilat L>R. Large area of erythema with well circumscribed borders approx 10 cm x 10 cm extending fro sup buttocks to lower back.) Eye Exam: Positive for: EOMI, Normal appearance, PERRL ENT: Positive for: Normal ENT Inspection Neck: Positive for: Normal, Painless ROM Cardiovascular/Chest: Positive for: Regular Rate, Rhythm Respiratory: Positive for: CNT, Normal Breath Sounds Gastrointestinal/Abdominal: Positive for: Normal Exam, Soft Back: Positive for: Normal Inspection Extremity: Positive for: Normal ROM Neurological/Psych: Positive for: Awake, Alert, Normal Tone - Laboratory Results Result Diagrams: 02/22/19 12:02 02/22/19 12:02 - ECG O2 Sat by Pulse Oximetry: 94 Medical Decision Making Medical Decision Making: CXR RUL infiltrate. Meets criteria for severe sepsis with lactate 2.6. Will Tx with IVFs and IV Zosyn and Vancomycin and repeat lactate. Disposition - Clinical Impression Clinical Impression: Pneumonia, Sepsis - Patient ED Disposition Is Patient to be Admitted: Yes - Disposition Disposition Time: 13:38 Condition: FAIR Forms: [employer] ([place]ish) - Pt Status Changed To: Hospital Disposition Of: Inpatient - Admit Certification Admit to Inpatient:: After my assessment, the patient will require hospitalization for at least two midnights. This is because of the severity of symptoms shown, intensity of services needed, and/or the medical risk in this patient being treated as an outpatient. - POA Present On Arrival: Pressure Ulcer
[2019-02-22 12:06] LABS: BASO % 0.3 % (0.0-2.0); EOS # 0.6 K/uL (0.0-0.7); EOS % 4.2 % (0.0-4.0); HEMOGLOBIN 14.2 g/dL (12.0-16.0); LYMPH # 0.5 K/uL (1.0-4.3); LYMPH % 3.9 % (20.0-40.0); MEAN CELL VOLUME 94.3 fl (81.0-99.0); MEAN CORPUSCULAR HEMOGLOBIN 30.5 pg (27.0-31.0); MEAN CORPUSCULAR HGB CONC 32.3 g/dL (33.0-37.0); MONO # 0.8 K/uL (0.0-0.8); MONO % 6.1 % (0.0-10.0); NEUT # 11.5 K/uL (1.8-7.0); NEUT % 85.5 % (50.0-75.0); NRBC % 0.1 % (0.0-0.0); PLATELET COUNT 219 K/uL (130-400); RBC 4.66 Mil/uL (3.80-5.20); RED CELL DISTRIBUTION WIDTH 14.7 % (11.5-14.5); WHITE BLOOD COUNT 13.4 K/uL (4.8-10.8)
[2019-02-22 12:08] LABS: VENOUS BLOOD GAS BASE EXCESS 0.7 mmol/L (0.0-2.0); VENOUS BLOOD GAS PCO2 51 mmHg (40-60); VENOUS BLOOD GAS PO2 24 mm/Hg (30-55); VENOUS BLOOD PH 7.34 (7.32-7.43)
[2019-02-22 12:18] LABS: ALBUMIN 3.6 g/dL (3.5-5.0); CALCIUM 9.2 mg/dL (8.4-10.2)
[2019-02-22 12:35] LABS: BANDS 4 % (0-2); EOSINOPHIL 9 % (0-7); LYMPHOCYTE 7 % (20-50); MONOCYTE 3 % (0-10); NEUTROPHIL 77 % (42-75); PLATELET ESTIMATE NORMAL (NORMAL); TOTAL CELLS COUNTED 100
[2019-02-22 12:37] LABS: ANISOCYTOSIS SLIGHT; GIANT PLATELETS PRESENT; LARGE PLATELETS PRESENT; OVALOCYTES SLIGHT; POIKILOCYTOSIS SLIGHT; TEARDROP CELLS SLIGHT
--- NOTE | 2019-02-22 12:46 | RAD ---
Date of service: 02/22/2019 HISTORY: cough COMPARISON: 11/07/2018. FINDINGS: LUNGS: Right upper lobe infiltrate with air bronchograms likely acute. PLEURA: No significant pleural effusion identified, no pneumothorax apparent. CARDIOVASCULAR: No atherosclerotic calcification present No significant interval change compared to the prior examination(s). OSSEOUS STRUCTURES: No significant abnormalities. VISUALIZED UPPER ABDOMEN: Normal. OTHER FINDINGS: None. IMPRESSION: New right upper lobe infiltrate likely acute pneumonia.
--- NOTE | 2019-02-22 12:48 | CARD ---
APPROVED REPORT Date of service: 02/22/2019 EKG Measurement Heart [id number] MI [id number] <Conclusion> Normal sinus rhythm Left bundle branch block Abnormal ECG
[2019-02-22] MEDS ORDERED: Sodium Chloride 0.9% 1,000 ML IV STA (13:32)
[2019-02-22 13:51] LABS: SQUAMOUS EPITHIAL < 1 /hpf (0-5); URINE BACTERIA RARE (<OCC); URINE BILIRUBIN NEGATIVE (NEGATIVE); URINE BLOOD NEGATIVE (NEGATIVE); URINE CLARITY CLOUDY (Clear); URINE COLOR AMBER (YELLOW); URINE GLUCOSE (UA) NEG (NEGATIVE); URINE LEUKOCYTE ESTERASE NEG Leu/uL (Negative); URINE PROTEIN 30 mg/dL (NEGATIVE); URINE UROBILINOGEN 0.2-1.0 mg/dL (0.2-1.0)
[2019-02-22] MEDS ORDERED: Vancomycin 1 g Inj ONE (14:03)
[2019-02-22 15:53] LABS: VENOUS BLOOD GAS BASE EXCESS 1.5 mmol/L (0.0-2.0); VENOUS BLOOD GAS PCO2 46 mmHg (40-60); VENOUS BLOOD GAS PO2 26 mm/Hg (30-55); VENOUS BLOOD PH 7.38 (7.32-7.43)
[2019-02-22] MEDS ORDERED: Sodium Chloride 3% for Inhalation 4 ML VIAL.NEB IH PRN ×2 (17:13→23:07)
[2019-02-22] MEDS: Dextrose 5%/0.45% NS 1,000 ML IV SCH (17:54)
--- NOTE | 2019-02-23 04:02 | HP ---
HISTORY OF PRESENT ILLNESS: Mrs. Chang is an 88-year-old female who was admitted via the emergency room. She arrived with family and the family indicates that she had become more confused despite having Alzheimer's disease. She also has had urinary and bowel incontinence over the past few days. She does not give much history, but is awake and alert and as per family, she appears to have perked up on IV hydration and IV antibiotics. She was noticed in the emergency room to have pneumonia in the right lung and is admitted for sepsis, dehydration and pneumonia. PAST MEDICAL HISTORY: Remarkable for Alzheimer's disease and hypertension. She also has arthritis. FAMILY HISTORY: Nonrevealing. SOCIAL HISTORY: She does not smoke or drink and lives at home with family. PHYSICAL EXAMINATION: GENERAL: The patient is awake, alert, and oriented to person, but not place and time. VITAL SIGNS: Blood pressure 118/78, pulse of 103, and respiratory rate is 20. She is febrile with a temperature 98.2 degrees Fahrenheit. O2 sat is 93% on room air. SKIN: Shows poor turgor. NECK: JVP flat. HEENT: Mouth shows poor hygiene with dry mucosa. LUNGS: Bilateral scattered rales, right greater than left. BREASTS: Normal. CARDIOPULMONARY: Tachycardic. ABDOMEN: Soft and nontender. No organomegaly. EXTREMITIES: No edema or cyanosis. CENTRAL NERVOUS SYSTEM: Except for confusion, no gross deficits appreciated. The patient is mainly bedridden. LABORATORY DATA: WBC 13.4, hemoglobin 14.2, and platelet count of 219,000 with neutrophils 85.5, lymphocytes, 3.9, and bands of 4. Sodium 141, potassium 3.8, BUN 32, creatinine 1.4, and serum glucose 192. Venous blood gas shows a pH of 7.34, pO2 of 24, and pCO2 of 51. Lactate of 2.6. DIAGNOSTIC DATA: Chest x-ray is remarkable for right upper lobe infiltrates, likely an acute pneumonia. EKG, normal sinus rhythm, left bundle branch block. IMPRESSION: Pneumonia of left lung with sepsis and dehydration, lactic acidosis secondary to pneumonia and poor tissue perfusion, history of Alzheimer's disease, history of hypertension, and a history of arthritis. PLAN: Septic workup, intravenous antibiotics, intravenous fluids, and Tylenol p.r.n. We will obtain both urine and stool cultures. Case discussed at length with the patient's daughter and at bedside. Further therapy will depend on findings. Meño Alcocer MD
[2019-02-23 05:30] LABS: BASO # 0.2 K/uL (0.0-0.2); BASO % 1.2 % (0.0-2.0); EOS # 0.6 K/uL (0.0-0.7); EOS % 3.9 % (0.0-4.0); HEMOGLOBIN 14.1 g/dL (12.0-16.0); LYMPH # 0.5 K/uL (1.0-4.3); LYMPH % 2.9 % (20.0-40.0); MEAN CELL VOLUME 93.4 fl (81.0-99.0); MEAN CORPUSCULAR HEMOGLOBIN 30.7 pg (27.0-31.0); MEAN CORPUSCULAR HGB CONC 32.9 g/dL (33.0-37.0); MEAN PLATELET VOLUME 9.5 fl (7.2-11.7); MONO # 0.9 K/uL (0.0-0.8); MONO % 5.6 % (0.0-10.0); NEUT # 13.9 K/uL (1.8-7.0); NEUT % 86.4 % (50.0-75.0); NRBC % 0.1 % (0.0-0.0); RBC 4.58 Mil/uL (3.80-5.20); RED CELL DISTRIBUTION WIDTH 14.3 % (11.5-14.5); WHITE BLOOD COUNT 16.1 K/uL (4.8-10.8)
[2019-02-23 06:05] LABS: BLOOD UREA NITROGEN 20 mg/dl (7-17); CALCIUM 8.8 mg/dL (8.4-10.2); GFR NON-AFRICAN AMERICAN 52
--- NOTE | 2019-02-23 08:45 | CP.PCM.PN ---
Subjective - Date & Time of Evaluation Date of Evaluation: 02/23/19 Time of Evaluation: 08:46 - Subjective Subjective: AWAKE AND ALERT NO APPARENT DISTRESS AFEBRILE Objective - Vital Signs/Intake and Output Vital Signs (last 24 hours): Temp Pulse Resp BP Pulse Ox 97.5 F L 109 H 20 126/76 95 02/23/19 08:00 02/23/19 08:00 02/23/19 08:00 02/23/19 08:00 02/23/19 08:00 - Medications Medications: Current Medications Acetaminophen (Tylenol 325mg Tab) 650 mg PO Q4 PRN PRN Reason: Fever >100.4 F Aspirin (Ecotrin) 81 mg PO DAILY [facility] Donepezil HCl (Aricept) 10 mg PO HS [facility] Last Admin: 02/22/19 21:57 Dose: 10 mg Dorzolamide HCl (Trusopt) 1 drop OU TID [facility]AL Dextrose/Sodium Chloride (Dextrose 5%/0.45% Ns 1000 Ml) 1,000 mls @ 60 mls/hr IV .[id number] [facility] Stop: 02/23/19 17:13 Last Admin: 02/22/19 17:54 Dose: 60 mls/hr Vancomycin HCl 500 mg/ Sodium (Chloride) 100 mls @ 100 mls/hr IVPB DAILY [facility]; Protocol Piperacillin Sod/Tazobactam (Sod 2.25 gm/ Sodium Chloride) 100 mls @ 100 mls/hr IVPB Q8 [facility]; Protocol Last Admin: 02/23/19 01:17 Dose: 100 mls/hr Memantine (Namenda) 10 mg PO Q12 [facility] Last Admin: 02/22/19 21:57 Dose: 10 mg Timolol Maleate (Timoptic 0.5% Ophth Soln) 1 drop OU Q12 [facility] Last Admin: 02/22/19 21:58 Dose: 1 drop - Labs Labs: 02/23/19 04:40 02/23/19 04:40 - Constitutional Appears: No Acute Distress - Head Exam Head Exam: ATRAUMATIC, NORMAL INSPECTION, NORMOCEPHALIC - Eye Exam Eye Exam: EOMI, Normal appearance, PERRL Pupil Exam: NORMAL ACCOMODATION, PERRL - ENT Exam ENT Exam: Mucous Membranes Moist, Normal Exam - Neck Exam Neck Exam: Full ROM, Normal Inspection. absent: Lymphadenopathy - Respiratory Exam Respiratory Exam: Decreased Breath Sounds, Prolonged Expiratory Phase, Rales, NORMAL BREATHING PATTERN - Cardiovascular Exam Cardiovascular Exam: REGULAR RHYTHM, +S1, +S2. absent: Murmur - GI/Abdominal Exam GI & Abdominal Exam: Soft, Normal Bowel Sounds. absent: Tenderness - Rectal Exam Rectal Exam: NORMAL INSPECTION - Extremities Exam Extremities Exam: Full ROM, Normal Capillary Refill, Normal Inspection. 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
[2019-02-23] MEDS: Dorzolamide 2% Ophth Soln OU SCH ×3 (09:41→16:04)
--- NOTE | 2019-02-23 11:35 | CP.PCM.PN ---
Subjective - Date & Time of Evaluation Date of Evaluation: 02/23/19 Time of Evaluation: 09:00 - Subjective Subjective: Brought by family for new onset of urinary and bowel incontinence intermittently over past 2 days. has h/o Alzheimers Dementia and found to have abnormal CXR IV antibiotics ordered empirically HAS WEAKNESS RIGHT > LEFT - Medical History PMH: Alzheimer's Disease, Arthritis, Dementia, HTN Denies: HIV, Chronic Kidney Disease Other PMH: Psoriasis Objective - Vital Signs/Intake and Output Vital Signs (last 24 hours): Temp Pulse Resp BP Pulse Ox 97.5 F L 90 20 126/76 98 02/23/19 08:00 02/23/19 10:41 02/23/19 08:00 02/23/19 08:00 02/23/19 10:41 - Medications Medications: Current Medications Acetaminophen (Tylenol 325mg Tab) 650 mg PO Q4 PRN PRN Reason: Fever >100.4 F Aspirin (Ecotrin) 81 mg PO DAILY [facility] Last Admin: 02/23/19 09:41 Dose: 81 mg Donepezil HCl (Aricept) 10 mg PO HS [facility] Last Admin: 02/22/19 21:57 Dose: 10 mg Dorzolamide HCl (Trusopt) 1 drop OU TID [facility] Last Admin: 02/23/19 09:41 Dose: 1 drop Dextrose/Sodium Chloride (Dextrose 5%/0.45% Ns 1000 Ml) 1,000 mls @ 60 mls/hr IV .[id number] [facility] Stop: 02/23/19 17:13 Last Admin: 02/22/19 17:54 Dose: 60 mls/hr Vancomycin HCl 500 mg/ Sodium (Chloride) 100 mls @ 100 mls/hr IVPB DAILY [facility]; Protocol Last Admin: 02/23/19 09:38 Dose: 100 mls/hr Piperacillin Sod/Tazobactam (Sod 2.25 gm/ Sodium Chloride) 100 mls @ 100 mls/hr IVPB Q8 [facility]; Protocol Last Admin: 02/23/19 09:39 Dose: 100 mls/hr Memantine (Namenda) 10 mg PO Q12 [facility] Last Admin: 02/23/19 09:41 Dose: 10 mg Timolol Maleate (Timoptic 0.5% Ophth Soln) 1 drop OU Q12 [facility] Last Admin: 02/23/19 09:42 Dose: 1 drop - Labs Labs: 02/23/19 04:40 02/23/19 04:40 - Constitutional Appears: Non-toxic, No Acute Distress, Confused, Cachectic, Chronically Ill - Head Exam Head Exam: NORMOCEPHALIC - Eye Exam Eye Exam: absent: Scleral icterus Pupil Exam: NORMAL ACCOMODATION - ENT Exam ENT Exam: Mucous Membranes Dry, Normal External Ear Exam - Neck Exam Neck Exam: absent: Lymphadenopathy - Respiratory Exam Respiratory Exam: Decreased Breath Sounds, Rhonchi - Cardiovascular Exam Cardiovascular Exam: REGULAR RHYTHM, +S1, +S2 - GI/Abdominal Exam GI & Abdominal Exam: Distended, Soft. absent: Tenderness - Rectal Exam Rectal Exam: Deferred - Exam Exam: NORMAL INSPECTION - Extremities Exam Extremities Exam: Pedal Edema - Back Exam Back Exam: absent: CVA tenderness (L), CVA tenderness (R) - Neurological Exam Neurological Exam: Alert, Awake, CN II-XII Intact, Motor Sensory Deficit. absent: Normal Gait, Oriented x3 Neuro motor strength exam: Left Upper Extremity: 4, Right Upper Extremity: 2/1, Left Lower Extremity: 4, Right Lower Extremity: 2/1 - Psychiatric Exam Psychiatric exam: Depressed - Skin Skin Exam: Dry Assessment and Plan (1) Pneumonia Status: Acute (2) Sepsis Status: Acute (3) UTI (urinary tract infection) Status: Acute (4) Dementia Status: Chronic (5) Essential (primary) hypertension Status: Chronic - Assessment and Plan (Free Text) Assessment: CONT EMPIRIC IV RX CONSIDER NEURO EVAL/ CT HEAD Plan: AWAIT CULTURES
--- NOTE | 2019-02-23 12:03 | CP.PCM.CON ---
History of Present Illness - History of Present Illness History of Present Illness: Brought by family for new onset of urinary and bowel incontinence intermittently over past 2 days. has h/o Alzheimers Dementia and found to have abnormal CXR IV antibiotics ordered empirically - Medical History PMH: Alzheimer's Disease, Arthritis, Dementia, HTN Denies: HIV, Chronic Kidney Disease Other PMH: Psoriasis Review of Systems - Review of Systems Systems not reviewed;Unavailable: Altered Mental Status All systems: reviewed and no additional remarkable complaints except - Constitutional Constitutional: As Per HPI - EENT Eyes: absent: As Per HPI, Blind Spots, Blurred Vision, Change in Vision, Decreased Night Vision, Diplopia, Discharge, Dry Eye, Exophthalmos, Floaters, Irritation, Itchy Eyes, Loss of Peripheral Vision, Pain, Photophobia, Requires Corrective Lenses, Sees Flashes, Spots in Vision, Tunnel Vision, Other Visual Disturbances, Loss of Vision, Other Ears: absent: As Per HPI, Decreased Hearing, Ear Discharge, Ear Pain, Tinnitus, Abnormal Hearing, Disequilibrium, Dizziness, Other Nose/Mouth/Throat: absent: As Per HPI, Epistaxis, Nasal Congestion, Nasal Discharge, Nasal Obstruction, Nasal Trauma, Nose Pain, Post Nasal Drip, Sinus Pain, Sinus Pressure, Bleeding Gums, Change in Voice, Dental Pain, Dry Mouth, Dysphagia, Halitosis, Hoarsness, Lip Swelling, Mouth Lesions, Mouth Pain, Odynophagia, Sore Throat, Throat Swelling, Tongue Swelling, Facial Pain, Neck Pain, Neck Mass, Other - Breasts Breasts: absent: As Per HPI, Change in Shape, Mass, Pain, Nipple Discharge, Nipple Inversion, Skin Changes, Swelling, Other - Cardiovascular Cardiovascular: absent: As Per HPI, Acrocyanosis, Chest Pain, Chest Pain at Rest, Chest Pain with Activity, Claudication, Diaphoresis, Dyspnea, Dyspnea on Exertion, Edema, Irregular Heart Rhythm, Pain Radiating to Arm/Neck/Jaw, Leg Edema, Leg Ulcers, Lightheadedness, Orthopnea, Palpitations, Paroxysmal Nocturnal Dyspnea, Pedal Edema, Radiating Pain, Rapid Heart Rate, Slow Heart Rate, Syncope, Other - Respiratory Respiratory: As Per HPI - Gastrointestinal Gastrointestinal: absent: As Per HPI, Abdominal Pain, Belching, Bloating, Change in Bowel Habits, Change in Stool Character, Coffee Ground Emesis, Constipation, Cramping, Diarrhea, Dyspepsia, Dysphagia, Early Satiety, Excessive Flatus, Fecal Incontinence, Heartburn, Hematemesis, Hematochezia, Loose Stools, Melena, Nausea, Odynophagia, Temesmus, Vomiting, Other - Genitourinary Genitourinary: As Per HPI - Reproductive: Female Reproductive:Female: absent: As Per HPI, Amenorrhea, Amenorrhea/ Control, Currently Menstual, Cycle <21 Days, Cycle >35 Days, Cycle Variable, Menses 1-7 Days, Menses >/= 8 Days, Menses Variable, Cycle > 4 Weeks Between, No Menses for 6 Months, Heavy Menses, Light Menses, Normal Menses, Spotting Between Cycles, S/P Hysterectomy, Menopausal, Post Menopausal, Premenarche, Abnormal Vaginal Bleeding, Dysmenorrhea, Dyspareunia, Genital Lesions, Genital Pruritis, Pelvic Pain, Prolapse Symptoms, Sexual Dysfunction, Vaginal Discharge, Vaginal Dryness, Vaginal Odor, Vaginal Pruritis, Other - Menstruation Menstruation: absent: As Per HPI, Amenorrhea, Amenorrhea/ Control, Currently Menstual, Cycle <21 Days, Cycle >35 Days, Cycle Variable, Menses 1-7 Days, Menses >/= 8 Days, Menses Variable, Cycle > 4 Weeks Between, No Menses for 6 Months, Heavy Menses, Light Menses, Normal Menses, Spotting Between Cycles, S/ P Hysterectomy, Menopausal, Post Menopausal, Premenarche, Abnormal Vaginal Bleeding, Dysmenorrhea, Other - Musculoskeletal Musculoskeletal: As Per HPI - Integumentary Integumentary: As Per HPI - Neurological Neurological: As Per HPI, Memory Loss - Psychiatric Psychiatric: As Per HPI - Endocrine Endocrine: absent: As Per HPI, Change in Body Appearance, Change in Libido, Cold Intolorance, Deepening of Voice, Excessive Sweating, Fatigue, Flushing, Heat Intolorance, Increase in Ring/Shoe/Hat Size, Palpitations, Polydipsia, Polyphagia, Polyuria, Other - Hematologic/Lymphatic Hematologic: absent: As Per HPI, Easy Bleeding, Easy Bruising, Lymphadenopathy, Other Past Patient History - Infectious Disease Hx of Infectious Diseases: None - Past Medical History & Family History Past Medical History?: Yes - Past Social History Smoking Status: Unknown If Ever Smoked - CARDIAC Hx Cardiac Disorders: Yes - PULMONARY Hx Respiratory Disorders: No - NEUROLOGICAL Hx Alzheimer's Disease: Yes Hx Dementia: Yes - HEENT Hx Cataracts: Yes Hx Glaucoma: Yes - RENAL Hx Chronic Kidney Disease: No - HEMATOLOGICAL/ONCOLOGICAL Hx Human Immunodeficiency Virus (HIV): No - INTEGUMENTARY Hx Dermatological Problems: No - MUSCULOSKELETAL/RHEUMATOLOGICAL Hx Falls: Yes - GASTROINTESTINAL Hx Gastrointestinal Disorders: No - GENITOURINARY/GYNECOLOGICAL Hx Incontinence: Yes - PSYCHIATRIC Hx Substance Use: No - SURGICAL HISTORY Hx Surgeries: Yes Hx Eye Surgery: Yes Other/Comment: lumpectomy/abdominal sx - ANESTHESIA Hx Anesthesia: Yes Hx Anesthesia Reactions: No Hx Malignant Hyperthermia: No Meds Allergies/Adverse Reactions: Allergies Allergy/AdvReac Type Severity Reaction Status Date / Time No Known Allergies Allergy Verified 03/11/18 14:10 - Medications Medications: Current Medications Acetaminophen (Tylenol 325mg Tab) 650 mg PO Q4 PRN PRN Reason: Fever >100.4 F Aspirin (Ecotrin) 81 mg PO DAILY [facility] Donepezil HCl (Aricept) 10 mg PO HS [facility] Last Admin: 02/22/19 21:57 Dose: 10 mg Dorzolamide HCl (Trusopt) 1 drop OU TID [facility] Dextrose/Sodium Chloride (Dextrose 5%/0.45% Ns 1000 Ml) 1,000 mls @ 60 mls/hr IV .[id number] [facility] Stop: 02/23/19 17:13 Last Admin: 02/22/19 17:54 Dose: 60 mls/hr Vancomycin HCl 500 mg/ Sodium (Chloride) 100 mls @ 100 mls/hr IVPB DAILY [facility]; Protocol Piperacillin Sod/Tazobactam (Sod 2.25 gm/ Sodium Chloride) 100 mls @ 100 mls/hr IVPB Q8 [facility]; Protocol Last Admin: 02/22/19 17:52 Dose: Not Given Memantine (Namenda) 10 mg PO Q12 [facility] Last Admin: 02/22/19 21:57 Dose: 10 mg Timolol Maleate (Timoptic 0.5% Ophth Soln) 1 drop OU Q12 [facility] Last Admin: 02/22/19 21:58 Dose: 1 drop Physical Exam - Constitutional Appears: Confused, Cachectic, Chronically Ill - Head Exam Head Exam: NORMOCEPHALIC - Eye Exam Eye Exam: absent: Scleral icterus - ENT Exam ENT Exam: Mucous Membranes Dry - Neck Exam Neck exam: Negative for: Lymphadenopathy - Respiratory Exam Respiratory Exam: Decreased Breath Sounds - Cardiovascular Exam Cardiovascular Exam: Tachycardia, REGULAR RHYTHM, +S1, +S2 - GI/Abdominal Exam GI & Abdominal Exam: Diminished Bowel Sounds, Soft - Rectal Exam Rectal Exam: Deferred - Exam Exam: Scrotal Swelling - Extremities Exam Extremities exam: Positive for: calf tenderness, pedal edema, pedal pulses present - Back Exam Back exam: absent: CVA tenderness (L), CVA tenderness (R) - Neurological Exam Neurological exam: Altered - Psychiatric Exam Psychiatric exam: Depressed Results - Vital Signs Recent Vital Signs: Last Vital Signs Temp 99.1 F 02/22/19 20:11 Pulse 115 H 02/22/19 20:11 Resp 18 02/22/19 20:11 BP 118/74 02/22/19 20:11 Pulse Ox 93 L 02/22/19 20:11 - Labs Result Diagrams: 02/22/19 12:02 02/22/19 12:02 Labs: Laboratory Results - last 24 hr 02/22/19 02/22/19 02/22/19 11:38 12:02 12:02 WBC 13.4 H D RBC 4.66 Hgb 14.2 Hct 43.9 MCV 94.3 D MCH 30.5 MCHC 32.3 L RDW 14.7 H Plt Count 219 MPV 9.0 Neut % (Auto) 85.5 H Lymph % (Auto) 3.[address] % (Auto) 6.1 Eos % (Auto) 4.2 H Baso % (Auto) 0.3 Neut # (Auto) 11.5 H Lymph # (Auto) 0.[address] # (Auto) 0.8 Eos # (Auto) 0.6 Baso # (Auto) 0.0 Neutrophils % (Manual) 77 H Band Neutrophils % 4 H Lymphocytes % (Manual) 7 L Monocytes % (Manual) 3 Eosinophils % (Manual) 9 H Platelet Estimate Normal Large Platelets Present Giant Platelets Present Poikilocytosis (manual Slight Anisocytosis (manual) Slight Tear Drop Cells Slight Ovalocytes Slight pO2 24 L VBG pH 7.34 VBG pCO2 51 VBG HCO3 23.6 VBG Total CO2 29.1 H VBG O2 Sat (Calc) 40.0 VBG Base Excess 0.7 VBG Potassium 3.8 Sodium 140.0 141 Chloride 105.0 105 Glucose 185 H Lactate 2.6 H FiO2 21.0 Potassium 3.8 Carbon Dioxide 25 Anion Gap 15 BUN 32 H Creatinine 1.4 H Est GFR ( Amer) 43 Est GFR (Non-Af Amer) 35 Random Glucose 192 H Calcium 9.2 Total Bilirubin 0.6 AST 23 ALT 21 Alkaline Phosphatase 85 Total Protein 7.3 Albumin 3.6 Globulin 3.7 Albumin/Globulin Ratio 1.0 Venous Blood Potassium 3.8 Urine Color Urine Clarity Urine pH Ur Specific Hubertus Urine Protein Urine Glucose (UA) Urine Ketones Urine Blood Urine Nitrate Urine Bilirubin Urine Urobilinogen Ur Leukocyte Esterase Urine RBC (Auto) Urine Microscopic WBC Ur Squamous Epith Cells Urine Bacteria Hyaline Casts 02/22/19 02/22/19 13:39 15:49 WBC RBC Hgb Hct MCV MCH MCHC RDW Plt Count MPV Neut % (Auto) Lymph % (Auto) Lane % (Auto) Eos % (Auto) Baso % (Auto) Neut # (Auto) Lymph # (Auto) Lane # (Auto) Eos # (Auto) Baso # (Auto) Neutrophils % (Manual) Band Neutrophils % Lymphocytes % (Manual) Monocytes % (Manual) Eosinophils % (Manual) Platelet Estimate Large Platelets Giant Platelets Poikilocytosis (manual Anisocytosis (manual) Tear Drop Cells Ovalocytes pO2 26 L VBG pH 7.38 VBG pCO2 46 VBG HCO3 24.7 VBG Total CO2 28.6 H VBG O2 Sat (Calc) 52.8 VBG Base Excess 1.5 VBG Potassium 4.9 Sodium 138.0 Chloride 108.0 H Glucose 107 H Lactate 2.1 FiO2 21.0 Potassium Carbon Dioxide Anion Gap BUN Creatinine Est GFR ( Amer) Est GFR (Non-Af Amer) Random Glucose Calcium Total Bilirubin AST ALT Alkaline Phosphatase Total Protein Albumin Globulin Albumin/Globulin Ratio Venous Blood Potassium 4.9 Urine Color Elva Urine Clarity Cloudy Urine pH 5.0 Ur Specific Hubertus 1.025 Urine Protein 30 Urine Glucose (UA) Neg Urine Ketones Negative Urine Blood Negative Urine Nitrate Negative Urine Bilirubin Negative Urine Urobilinogen 0.2-1.0 Ur Leukocyte Esterase Neg Urine RBC (Auto) 1 Urine Microscopic WBC 3 Ur Squamous Epith Cells < 1 Urine Bacteria Rare Hyaline Casts 3-5 H Assessment & Plan (1) Pneumonia Status: Acute (2) Sepsis Status: Acute (3) UTI (urinary tract infection) Status: Acute (4) Dementia Status: Chronic (5) Essential (primary) hypertension Status: Chronic - Assessment and Plan (Free Text) Assessment: empiric rx for pneumonia' poor prognosis
[2019-02-23] MEDS ORDERED: Sodium Chloride 3% for Inhalation 4 ML VIAL.NEB IH PRN (12:07)
[2019-02-23] MEDS: Dextrose 5%/0.45% NS 1,000 ML IV SCH (13:21)
[2019-02-23] MEDS: Piperacillin/Tazobact 3.375 GM in Sodium Chloride 0.9% 100 ML IVPB SCH ×2 (15:28→21:21)
[2019-02-24] MEDS: Piperacillin/Tazobact 3.375 GM in Sodium Chloride 0.9% 100 ML IVPB SCH ×2 (03:27→09:01)
[2019-02-24 05:35] LABS: BASO # 0.1 K/uL (0.0-0.2); BASO % 0.5 % (0.0-2.0); EOS # 0.9 K/uL (0.0-0.7); EOS % 4.6 % (0.0-4.0); HEMOGLOBIN 13.2 g/dL (12.0-16.0); LYMPH # 0.8 K/uL (1.0-4.3); LYMPH % 4.4 % (20.0-40.0); MEAN CORPUSCULAR HEMOGLOBIN 30.4 pg (27.0-31.0); MEAN CORPUSCULAR HGB CONC 32.4 g/dL (33.0-37.0); MEAN PLATELET VOLUME 9.7 fl (7.2-11.7); MONO # 1.2 K/uL (0.0-0.8); MONO % 6.1 % (0.0-10.0); NEUT # 16.1 K/uL (1.8-7.0); NEUT % 84.4 % (50.0-75.0); RBC 4.32 Mil/uL (3.80-5.20); RED CELL DISTRIBUTION WIDTH 14.6 % (11.5-14.5); WHITE BLOOD COUNT 19.1 K/uL (4.8-10.8)
[2019-02-24] MEDS: Dorzolamide 2% Ophth Soln OU SCH ×3 (08:34→17:46)
--- NOTE | 2019-02-24 08:48 | CP.PCM.PN ---
Subjective - Date & Time of Evaluation Date of Evaluation: 02/24/19 Time of Evaluation: 08:49 - Subjective Subjective: AWAKE AND RESPONDS TO VERBAL COMMANDS LOW GRADE FEVER TODAY--100F STILL HAS AUDIBLE RALES Objective - Vital Signs/Intake and Output Vital Signs (last 24 hours): Temp Pulse Resp BP Pulse Ox 100.4 F H 95 H 20 133/77 98 02/24/19 08:35 02/24/19 07:47 02/24/19 07:47 02/24/19 07:47 02/24/19 07:47 - Medications Medications: Current Medications Acetaminophen (Tylenol 325mg Tab) 650 mg PO Q4 PRN PRN Reason: Fever >100.4 F Aspirin (Ecotrin) 81 mg PO DAILY [facility] Last Admin: 02/24/19 08:35 Dose: 81 mg Donepezil HCl (Aricept) 10 mg PO HS [facility] Last Admin: 02/23/19 21:19 Dose: 10 mg Dorzolamide HCl (Trusopt) 1 drop OU TID [facility] Last Admin: 02/24/19 08:34 Dose: 1 drop Vancomycin HCl 500 mg/ Sodium (Chloride) 100 mls @ 100 mls/hr IVPB Q12H [facility]; Protocol Last Admin: 02/24/19 00:07 Dose: 100 mls/hr Piperacillin Sod/Tazobactam (Sod 3.375 gm/ Sodium Chloride) 100 mls @ 100 mls/hr IVPB Q6 [facility]; Protocol Last Admin: 02/24/19 03:27 Dose: 100 mls/hr Memantine (Namenda) 10 mg PO Q12 [facility] Last Admin: 02/24/19 08:35 Dose: 10 mg Timolol Maleate (Timoptic 0.5% Ophth Soln) 1 drop OU Q12 [facility] Last Admin: 02/24/19 08:35 Dose: 1 drop - Labs Labs: 02/24/19 04:50 02/23/19 04:40 - Constitutional Appears: Chronically Ill - Head Exam Head Exam: ATRAUMATIC, NORMAL INSPECTION, NORMOCEPHALIC - Eye Exam Eye Exam: EOMI, Normal appearance, PERRL Pupil Exam: NORMAL ACCOMODATION, PERRL - ENT Exam ENT Exam: Mucous Membranes Moist, Normal Exam - Neck Exam Neck Exam: Full ROM, Normal Inspection. absent: Lymphadenopathy - Respiratory Exam Respiratory Exam: Decreased Breath Sounds, Prolonged Expiratory Phase, Rales, NORMAL BREATHING PATTERN - Cardiovascular Exam Cardiovascular Exam: REGULAR RHYTHM, +S1, +S2. absent: Murmur - GI/Abdominal Exam GI & Abdominal Exam: Soft, Normal Bowel Sounds. absent: Tenderness - Rectal Exam Rectal Exam: NORMAL INSPECTION - Extremities Exam Extremities Exam: Full ROM, Normal Capillary Refill, Normal Inspection. 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
[2019-02-24] MEDS: Meropenem 500 MG in Sodium Chloride 0.9% 100 ML IVPB SCH ×2 (11:11→17:45)
--- NOTE | 2019-02-24 11:26 | RAD ---
Date of service: 02/24/2019 PROCEDURE: CHEST RADIOGRAPH, 1 VIEW HISTORY: PNEUMONIA COMPARISON: 02/22/2019. FINDINGS: LUNGS: Interval improvement in right upper lobe infiltrate. PLEURA: No pneumothorax or pleural fluid seen. CARDIOVASCULAR: Cardiomegaly. Atherosclerotic calcifications identified primarily aortic arch. OSSEOUS STRUCTURES: No significant abnormalities. VISUALIZED UPPER ABDOMEN: Normal. OTHER FINDINGS: None. IMPRESSION: Improving right upper lobe infiltrate.
--- NOTE | 2019-02-24 14:33 | CP.PCM.PCO ---
Assessment & Plan - Assessment and Plan (Free Text) Assessment: patient will require 1 week of iv antibiotics Merrem 500 mg iv q8
--- NOTE | 2019-02-24 17:15 | CP.PCM.PN ---
Subjective - Date & Time of Evaluation Date of Evaluation: 02/24/19 Time of Evaluation: 08:00 - Subjective Subjective: STILL WEAK AND CONGESTED- very lethargic with weakness > Right side WBC TRENDING HIGHER CULTURE SO FAR ONLY SHOW TALAVERA SENSITIVE PROTEUS IN URINE Objective - Vital Signs/Intake and Output Vital Signs (last 24 hours): Temp Pulse Resp BP Pulse Ox 98.7 F 86 20 96/65 L 98 02/24/19 16:03 02/24/19 16:03 02/24/19 16:03 02/24/19 16:03 02/24/19 16:03 - Medications Medications: Current Medications Acetaminophen (Tylenol 325mg Tab) 650 mg PO Q4 PRN PRN Reason: Fever >100.4 F Aspirin (Ecotrin) 81 mg PO DAILY [facility] Last Admin: 02/24/19 08:35 Dose: 81 mg Donepezil HCl (Aricept) 10 mg PO HS [facility] Last Admin: 02/23/19 21:19 Dose: 10 mg Dorzolamide HCl (Trusopt) 1 drop OU TID [facility] Last Admin: 02/24/19 14:30 Dose: 1 drop Meropenem 500 mg/ Sodium (Chloride) 100 mls @ 100 mls/hr IVPB Q8 [facility]; Protocol Last Admin: 02/24/19 11:11 Dose: 100 mls/hr Memantine (Namenda) 10 mg PO Q12 [facility] Last Admin: 02/24/19 08:35 Dose: 10 mg Timolol Maleate (Timoptic 0.5% Ophth Soln) 1 drop OU Q12 [facility] Last Admin: 02/24/19 08:35 Dose: 1 drop - Labs Labs: 02/24/19 04:50 02/23/19 04:40 - Constitutional Appears: Confused, Cachectic, Chronically Ill - Head Exam Head Exam: NORMOCEPHALIC - Eye Exam Eye Exam: absent: Scleral icterus - ENT Exam ENT Exam: Mucous Membranes Dry - Neck Exam Neck Exam: absent: Lymphadenopathy - Respiratory Exam Respiratory Exam: Decreased Breath Sounds, Prolonged Expiratory Phase, Rales, Rhonchi - Cardiovascular Exam Cardiovascular Exam: REGULAR RHYTHM, +S1, +S2 - GI/Abdominal Exam GI & Abdominal Exam: Distended, Soft. absent: Tenderness - Rectal Exam Rectal Exam: Deferred - Exam Exam: NORMAL INSPECTION - Extremities Exam Extremities Exam: Pedal Edema - Back Exam Back Exam: absent: CVA tenderness (L), CVA tenderness (R), paraspinal tenderness - Neurological Exam Neurological Exam: Altered, CN II-XII Intact. absent: Normal Gait - Psychiatric Exam Psychiatric exam: Depressed - Skin Skin Exam: Dry Assessment and Plan (1) Pneumonia Status: Acute (2) Sepsis Status: Acute (3) UTI (urinary tract infection) Status: Acute (4) Dementia Status: Chronic (5) Essential (primary) hypertension Status: Chronic - Assessment and Plan (Free Text) Assessment: CONT RX FOR PNEUMONIA ADD MERREM EMPIRICALLY- UNABLE TO EXPECTORATE LEGIONELLA AG NEGATIVE WILL REQUEST FORMAL SWALLOWING EVAL
[2019-02-25] MEDS: Meropenem 500 MG in Sodium Chloride 0.9% 100 ML IVPB SCH ×3 (01:10→18:57)
[2019-02-25 06:19] LABS: BASO # 0.1 K/uL (0.0-0.2); BASO % 0.5 % (0.0-2.0); EOS # 0.7 K/uL (0.0-0.7); EOS % 4.1 % (0.0-4.0); HEMOGLOBIN 13.3 g/dL (12.0-16.0); LYMPH # 0.6 K/uL (1.0-4.3); LYMPH % 3.7 % (20.0-40.0); MEAN CELL VOLUME 91.8 fl (81.0-99.0); MEAN CORPUSCULAR HEMOGLOBIN 30.6 pg (27.0-31.0); MEAN CORPUSCULAR HGB CONC 33.3 g/dL (33.0-37.0); MEAN PLATELET VOLUME 9.7 fl (7.2-11.7); MONO # 0.9 K/uL (0.0-0.8); NEUT # 14.7 K/uL (1.8-7.0); NEUT % 86.7 % (50.0-75.0); RBC 4.34 Mil/uL (3.80-5.20); RED CELL DISTRIBUTION WIDTH 14.3 % (11.5-14.5)
[2019-02-25] MEDS: Dorzolamide 2% Ophth Soln OU SCH ×3 (09:04→19:00)
--- NOTE | 2019-02-25 13:18 | CP.PCM.PN ---
Subjective - Date & Time of Evaluation Date of Evaluation: 02/25/19 Time of Evaluation: 08:00 - Subjective Subjective: seen on rounds awake alert going for CT head Objective - Vital Signs/Intake and Output Vital Signs (last 24 hours): Temp Pulse Resp BP Pulse Ox 97.5 F L 90 19 119/72 97 02/25/19 11:43 02/25/19 11:43 02/25/19 11:43 02/25/19 11:43 02/25/19 11:43 - Medications Medications: Current Medications Acetaminophen (Tylenol 325mg Tab) 650 mg PO Q4 PRN PRN Reason: Fever >100.4 F Aspirin (Ecotrin) 81 mg PO DAILY [facility] Last Admin: 02/25/19 09:03 Dose: 81 mg Donepezil HCl (Aricept) 10 mg PO HS [facility] Last Admin: 02/24/19 21:45 Dose: 10 mg Dorzolamide HCl (Trusopt) 1 drop OU TID [facility] Last Admin: 02/25/19 09:04 Dose: 1 drop Meropenem 500 mg/ Sodium (Chloride) 100 mls @ 100 mls/hr IVPB Q8 [facility]; Protocol Last Admin: 02/25/19 09:02 Dose: 100 mls/hr Memantine (Namenda) 10 mg PO Q12 [facility] Last Admin: 02/25/19 09:03 Dose: 10 mg Timolol Maleate (Timoptic 0.5% Ophth Soln) 1 drop OU Q12 [facility] Last Admin: 02/25/19 09:04 Dose: 1 drop - Labs Labs: 02/25/19 04:35 02/23/19 04:40 - Constitutional Appears: Non-toxic, Chronically Ill - Head Exam Head Exam: ATRAUMATIC, NORMAL INSPECTION, NORMOCEPHALIC - Eye Exam Eye Exam: EOMI, Normal appearance, PERRL Pupil Exam: NORMAL ACCOMODATION, PERRL - ENT Exam ENT Exam: Mucous Membranes Moist, Normal Exam - Neck Exam Neck Exam: Full ROM, Normal Inspection. absent: Lymphadenopathy - Respiratory Exam Respiratory Exam: Clear to Ausculation Bilateral, NORMAL BREATHING PATTERN - Cardiovascular Exam Cardiovascular Exam: REGULAR RHYTHM, +S1, +S2. absent: Murmur - GI/Abdominal Exam GI & Abdominal Exam: Soft, Normal Bowel Sounds. absent: Tenderness - Rectal Exam Rectal Exam: Deferred - Exam Exam: NORMAL INSPECTION - Extremities Exam Extremities Exam: Full ROM, Normal Capillary Refill, Normal Inspection. absent: Joint Swelling, Pedal Edema - Back Exam Back Exam: NORMAL INSPECTION - Neurological Exam Neurological Exam: Alert, Altered, Awake, CN II-XII Intact. absent: Normal Gait Neuro motor strength exam: Left Upper Extremity: 3, Right Upper Extremity: 4, Left Lower Extremity: 3, Right Lower Extremity: 4 - Psychiatric Exam Psychiatric exam: Depressed - Skin Skin Exam: Dry, Intact, Warm Assessment and Plan (1) Pneumonia Status: Acute (2) Sepsis Status: Acute (3) UTI (urinary tract infection) Status: Acute (4) Dementia Status: Chronic (5) Essential (primary) hypertension Status: Chronic - Assessment and Plan (Free Text) Assessment: cont empiric rx for pneumonia await cultures poor prognosis
--- NOTE | 2019-02-25 15:54 | CT ---
Date of service: 02/25/2019 PROCEDURE: CT HEAD WITHOUT CONTRAST. HISTORY: right sided weakness r/o CVA COMPARISON: 03/11/2018 TECHNIQUE: Axial computed tomography images were obtained through the head/brain without intravenous contrast. Radiation dose: Total exam DLP = 704.68 mGy-cm. This CT exam was performed using one or more of the following dose reduction techniques: Automated exposure control, adjustment of the mA and/or kV according to patient size, and/or use of iterative reconstruction technique. FINDINGS: HEMORRHAGE: No intracranial hemorrhage. BRAIN: No mass effect or edema. Volume loss and chronic microvascular white matter ischemic changes are again noted. 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 No hydrocephalus. CALVARIUM: Unremarkable. PARANASAL SINUSES: Unremarkable as visualized. No significant inflammatory changes. MASTOID AIR CELLS: Unremarkable as visualized. No inflammatory changes. OTHER FINDINGS: Internal fixation at the anterior right maxillary sinus wall is again noted. IMPRESSION: No evidence of acute intracranial hemorrhage territorial infarction mass effect or midline shift. Volume loss and chronic microvascular white matter ischemic changes.
--- NOTE | 2019-02-25 16:16 | CP.PCM.PN ---
<Johnson Fernández - Last Filed: 02/25/19 16:20> Subjective - Date & Time of Evaluation Date of Evaluation: 02/25/19 Time of Evaluation: 07:00 - Subjective Subjective: Patient seen and examined at bedside today. Patient was complaining of RIGHT sided weakness, CT scan done it was negative. Otherwise patient have no complains. Objective - Vital Signs/Intake and Output Vital Signs (last 24 hours): Temp Pulse Resp BP Pulse Ox 98.3 F 97 H 17 115/74 96 02/25/19 15:59 02/25/19 15:59 02/25/19 15:59 02/25/19 15:59 02/25/19 15:59 - Medications Medications: Current Medications Acetaminophen (Tylenol 325mg Tab) 650 mg PO Q4 PRN PRN Reason: Fever >100.4 F Aspirin (Ecotrin) 81 mg PO DAILY [facility] Last Admin: 02/25/19 09:03 Dose: 81 mg Donepezil HCl (Aricept) 10 mg PO HS [facility] Last Admin: 02/24/19 21:45 Dose: 10 mg Dorzolamide HCl (Trusopt) 1 drop OU TID [facility] Last Admin: 02/25/19 15:33 Dose: 1 drop Meropenem 500 mg/ Sodium (Chloride) 100 mls @ 100 mls/hr IVPB Q8 [facility]; Protocol Last Admin: 02/25/19 09:02 Dose: 100 mls/hr Memantine (Namenda) 10 mg PO Q12 [facility] Last Admin: 02/25/19 09:03 Dose: 10 mg Timolol Maleate (Timoptic 0.5% [facility]) 1 drop OU Q12 [facility] Last Admin: 02/25/19 09:04 Dose: 1 drop - Labs Labs: 02/25/19 04:35 02/23/19 04:40 - Constitutional Appears: Well, Non-toxic, No Acute Distress - Head Exam Head Exam: ATRAUMATIC, NORMAL INSPECTION, NORMOCEPHALIC - Eye Exam Eye Exam: EOMI, Normal appearance Pupil Exam: NORMAL ACCOMODATION, PERRL - ENT Exam ENT Exam: Mucous Membranes Moist, Normal Exam - Neck Exam Neck Exam: Normal Inspection - Respiratory Exam Respiratory Exam: Clear to Ausculation Bilateral, NORMAL BREATHING PATTERN - Cardiovascular Exam Cardiovascular Exam: REGULAR RHYTHM, +S1, +S2 - GI/Abdominal Exam GI & Abdominal Exam: Soft, Normal Bowel Sounds - Extremities Exam Additional comments: Weakenss noted on RIGHT upper and lower extremities - Neurological Exam Neurological Exam: Alert, Awake - Psychiatric Exam Psychiatric exam: Normal Affect, Normal Mood - Skin Skin Exam: Dry, Intact, Normal Color, Warm Assessment and Plan - Assessment and Plan (Free Text) Assessment: 88 yo male with new onset of urinary and bowel incontinence with h/o alzheimers, dementia and confusion has worsen Admitted for Pneumonia. Pneumonia Continue Abx Continue Mereponem empirically Will transfer to [facility] <Allison Mckeon - Last Filed: 02/25/19 17:17> Objective - Vital Signs/Intake and Output Vital Signs (last 24 hours): Temp Pulse Resp BP Pulse Ox 98.3 F 97 H 17 115/74 96 02/25/19 15:59 02/25/19 15:59 02/25/19 15:59 02/25/19 15:59 02/25/19 15:59 - Medications Medications: Current Medications Acetaminophen (Tylenol 325mg Tab) 650 mg PO Q4 PRN PRN Reason: Fever >100.4 F Aspirin (Ecotrin) 81 mg PO DAILY [facility] Last Admin: 02/25/19 09:03 Dose: 81 mg Donepezil HCl (Aricept) 10 mg PO HS [facility] Last Admin: 02/24/19 21:45 Dose: 10 mg Dorzolamide HCl (Trusopt) 1 drop OU TID [facility] Last Admin: 02/25/19 15:33 Dose: 1 drop Meropenem 500 mg/ Sodium (Chloride) 100 mls @ 100 mls/hr IVPB Q8 [facility]; Protocol Last Admin: 02/25/19 09:02 Dose: 100 mls/hr Memantine (Namenda) 10 mg PO Q12 [facility] Last Admin: 02/25/19 09:03 Dose: 10 mg Timolol Maleate (Timoptic 0.5% [facility]) 1 drop OU Q12 [facility] Last Admin: 02/25/19 09:04 Dose: 1 drop - Labs Labs: 02/25/19 04:35 02/23/19 04:40 Attending/Attestation - Attestation I have personally seen and examined this patient.: Yes I have fully participated in the care of the patient.: Yes I have reviewed all pertinent clinical information, including history, physical exam and plan: Yes Notes (Text): Sepsis ( POA) due to Pneumonia prob bacterial and UTI ( Proteus) Physical Deconditioning/Generalized Weakness Alzheimer's Dementia CHRIS likely due to Dehydration and Sepsis , resolved - Pt was septic on admission WBC 19k, elevated Lactic acid, febrile - on IV Meropenem as rec by ID -Urine c/s : Proteus - cont Namenda and Aricept - Head CT : no acute CVA - plan to d/c pt to [facility] for IV abx tx for 1 more week and for physical therapy
[2019-02-26] MEDS: Meropenem 500 MG in Sodium Chloride 0.9% 100 ML IVPB SCH ×4 (00:47→16:48)
[2019-02-26] MEDS ORDERED: Albuterol-Ipratrop 3 mg / 0.5 (3 ml) UD INH STA (04:24)
[2019-02-26 07:31] LABS: BASO # 0.1 K/uL (0.0-0.2); BASO % 0.6 % (0.0-2.0); EOS # 1.4 K/uL (0.0-0.7); EOS % 6.4 % (0.0-4.0); HEMOGLOBIN 13.1 g/dL (12.0-16.0); LYMPH # 0.7 K/uL (1.0-4.3); MEAN CELL VOLUME 91.6 fl (81.0-99.0); MEAN CORPUSCULAR HEMOGLOBIN 30.7 pg (27.0-31.0); MEAN CORPUSCULAR HGB CONC 33.5 g/dL (33.0-37.0); MONO # 1.1 K/uL (0.0-0.8); MONO % 4.9 % (0.0-10.0); NEUT # 18.7 K/uL (1.8-7.0); NEUT % 85.1 % (50.0-75.0); PLATELET COUNT 302 K/uL (130-400); RBC 4.26 Mil/uL (3.80-5.20); RED CELL DISTRIBUTION WIDTH 14.5 % (11.5-14.5); WHITE BLOOD COUNT 21.9 K/uL (4.8-10.8)
[2019-02-26] MEDS: Dorzolamide 2% Ophth Soln OU SCH ×3 (09:21→16:49)
[2019-02-26] MEDS ORDERED: Iohexol 240 (50 ml) PO ONE ×2 (10:15→14:49)
[2019-02-26 10:29] LABS: BANDS 5 % (0-2); EOSINOPHIL 7 % (0-7); LYMPHOCYTE 4 % (20-50); MONOCYTE 6 % (0-10); NEUTROPHIL 78 % (42-75); TOTAL CELLS COUNTED 100
[2019-02-26 10:31] LABS: ANISOCYTOSIS SLIGHT; GIANT PLATELETS PRESENT; LARGE PLATELETS PRESENT; PLATELET ESTIMATE NORMAL (NORMAL); TEARDROP CELLS SLIGHT
--- NOTE | 2019-02-26 10:43 | CP.PCM.PN ---
<Johnson Fernández - Last Filed: 02/26/19 11:48> Subjective - Date & Time of Evaluation Date of Evaluation: 02/26/19 Time of Evaluation: 07:00 - Subjective Subjective: Patient seen today, Patient is more confused than yesterday, she is combative, she was placed 1:1. Not able to communicate Objective - Vital Signs/Intake and Output Vital Signs (last 24 hours): Temp Pulse Resp BP Pulse Ox 99.8 F H 106 H 20 131/90 95 02/26/19 08:14 02/26/19 08:14 02/26/19 08:14 02/26/19 08:14 02/26/19 08:14 - Medications Medications: Current Medications Acetaminophen (Tylenol 325mg Tab) 650 mg PO Q4 PRN PRN Reason: Fever >100.4 F Last Admin: 02/25/19 19:45 Dose: 650 mg Aspirin (Ecotrin) 81 mg PO DAILY [facility] Last Admin: 02/26/19 09:21 Dose: 81 mg Azithromycin (Zithromax) 500 mg PO DAILY [facility]; Protocol Last Admin: 02/26/19 09:21 Dose: 500 mg Donepezil HCl (Aricept) 10 mg PO HS [facility] Last Admin: 02/25/19 21:54 Dose: 10 mg Dorzolamide HCl (Trusopt) 1 drop OU TID [facility] Last Admin: 02/26/19 09:21 Dose: 1 drop Meropenem 500 mg/ Sodium (Chloride) 100 mls @ 100 mls/hr IVPB Q8 [facility]; Protocol Last Admin: 02/26/19 09:20 Dose: 100 mls/hr Vancomycin HCl 1 gm/ Sodium (Chloride) 250 mls @ 166.667 mls/hr IVPB Q24H [facility]; Protocol Last Admin: 02/25/19 22:03 Dose: 166.667 mls/hr Memantine (Namenda) 10 mg PO Q12 [facility] Last Admin: 02/26/19 09:21 Dose: 10 mg Timolol Maleate (Timoptic 0.5% [facility]) 1 drop OU Q12 [facility] Last Admin: 02/26/19 09:21 Dose: 1 drop - Labs Labs: 02/26/19 05:21 02/23/19 04:40 - Constitutional Appears: Combative, Confused - Additional Findings Additional findings: Unable to perform due patient combative Assessment and Plan - Assessment and Plan (Free Text) Assessment: 88 yo male with new onset of urinary and bowel incontinence with h/o alzheimers, dementia and confusion has worsen Admitted for Pneumonia. Today patient is combative, confused, placed 1:1 altered mental status with Leukocytosis WBC 21.9, Fever of 101.2 on 02/25/19 Patient on Vancomycin 1Gm, Meropenem 500mg Azythromycin added ID on case + urine Culrue; proteus Will follow up BC/UC CBC/CMP for tomorrow Continue 1:[address] : no acute CVA Alzheimer Cont Namenda and Aricept <Allison Mckeon - Last Filed: 02/26/19 14:46> Objective - Vital Signs/Intake and Output Vital Signs (last 24 hours): Temp Pulse Resp BP Pulse Ox 99.8 F H 106 H 20 131/90 95 02/26/19 08:14 02/26/19 09:00 02/26/19 08:14 02/26/19 08:14 02/26/19 08:14 - Medications Medications: Current Medications Acetaminophen (Tylenol 325mg Tab) 650 mg PO Q4 PRN PRN Reason: Fever >100.4 F Last Admin: 02/25/19 19:45 Dose: 650 mg Aspirin (Ecotrin) 81 mg PO DAILY [facility] Last Admin: 02/26/19 09:21 Dose: 81 mg Azithromycin (Zithromax) 500 mg PO DAILY [facility]; Protocol Last Admin: 02/26/19 09:21 Dose: 500 mg Donepezil HCl (Aricept) 10 mg PO HS [facility] Last Admin: 02/25/19 21:54 Dose: 10 mg Dorzolamide HCl (Trusopt) 1 drop OU TID [facility] Last Admin: 02/26/19 14:22 Dose: Not Given Meropenem 500 mg/ Sodium (Chloride) 100 mls @ 100 mls/hr IVPB Q8 [facility]; Protocol Last Admin: 02/26/19 09:20 Dose: 100 mls/hr Vancomycin HCl 1 gm/ Sodium (Chloride) 250 mls @ 166.667 mls/hr IVPB Q24H [facility]; Protocol Last Admin: 02/25/19 22:03 Dose: 166.667 mls/hr Memantine (Namenda) 10 mg PO Q12 [facility] Last Admin: 02/26/19 09:21 Dose: 10 mg Timolol Maleate (Timoptic 0.5% [facility]) 1 drop OU Q12 [facility] Last Admin: 02/26/19 09:21 Dose: 1 drop - Labs Labs: 02/26/19 05:21 02/23/19 04:40 Attending/Attestation - Attestation I have personally seen and examined this patient.: Yes I have fully participated in the care of the patient.: Yes I have reviewed all pertinent clinical information, including history, physical exam and plan: Yes Notes (Text): Sepsis ( POA) due to Pneumonia prob bacterial and UTI ( Proteus) Physical Deconditioning/Generalized Weakness Alzheimer's Dementia, with behavioral changes (worsening due to acute medical condition) CHRIS likely due to Dehydration and Sepsis , resolved - Pt was septic on admission WBC 19k, elevated Lactic acid, febrile - had fever yesterday and WBC went up to 21K, will rpt cultures - pt denies sxs, uncooperative , refuses to be examined, - CT of chest , CT of abd and pelvis - Legionella and Mycoplasma pending - will add IV Azithromycin to cover for atypical - on IV Meropenem and Vanco as rec by ID -Urine c/s : Proteus - cont Namenda and Aricept - Head CT : no acute CVA - plan to d/c pt to [facility] for IV abx tx for 1 more week and for physical therapy once pt's acute sxs resolves
[2019-02-26] MEDS ORDERED: Sodium Chloride 3% for Inhalation 4 ML VIAL.NEB IH PRN (14:42)
[2019-02-26] MEDS: Azithromycin 500 MG in Sodium Chloride 0.9% 250 ML IVPB SCH (17:24)
[2019-02-27] MEDS: Meropenem 500 MG in Sodium Chloride 0.9% 100 ML IVPB SCH ×3 (01:37→16:24)
--- NOTE | 2019-02-27 07:13 | CP.PCM.PN ---
Subjective - Date & Time of Evaluation Date of Evaluation: 02/27/19 Time of Evaluation: 07:00 - Subjective Subjective: Patient seen and examined at bedside. Patient still confused, less alert and more lethargic. Objective - Vital Signs/Intake and Output Vital Signs (last 24 hours): Temp Pulse Resp BP Pulse Ox 98.9 F 94 H 20 129/86 92 L 02/27/19 05:15 02/27/19 05:15 02/27/19 05:15 02/27/19 05:15 02/27/19 05:15 - Medications Medications: Current Medications Acetaminophen (Tylenol 325mg Tab) 650 mg PO Q4 PRN PRN Reason: Fever >100.4 F Last Admin: 02/25/19 19:45 Dose: 650 mg Aspirin (Ecotrin) 81 mg PO DAILY [facility] Last Admin: 02/26/19 09:21 Dose: 81 mg Donepezil HCl (Aricept) 10 mg PO HS [facility] Last Admin: 02/26/19 21:15 Dose: 10 mg Dorzolamide HCl (Trusopt) 1 drop OU TID [facility] Last Admin: 02/26/19 16:49 Dose: 1 drop Meropenem 500 mg/ Sodium (Chloride) 100 mls @ 100 mls/hr IVPB Q8 [facility]; Protocol Last Admin: 02/27/19 01:37 Dose: 100 mls/hr Vancomycin HCl 1 gm/ Sodium (Chloride) 250 mls @ 166.667 mls/hr IVPB Q24H [facility]; Protocol Last Admin: 02/26/19 23:01 Dose: 166.667 mls/hr Azithromycin 500 mg/ Sodium (Chloride) 250 mls @ 250 mls/hr IVPB DAILY [facility]; Protocol Last Admin: 02/26/19 17:24 Dose: 250 mls/hr Memantine (Namenda) 10 mg PO Q12 [facility] Last Admin: 02/26/19 21:15 Dose: 10 mg Timolol Maleate (Timoptic 0.5% [facility]) 1 drop OU Q12 [facility] Last Admin: 02/26/19 21:15 Dose: 1 drop - Labs Labs: 02/26/19 05:21 02/23/19 04:40 - Constitutional Appears: Non-toxic - Head Exam Head Exam: ATRAUMATIC, NORMAL INSPECTION, NORMOCEPHALIC - Eye Exam Eye Exam: EOMI, Normal appearance, PERRL Pupil Exam: NORMAL ACCOMODATION, PERRL - ENT Exam ENT Exam: Mucous Membranes Moist, Normal Exam - Neck Exam Neck Exam: Full ROM, Normal Inspection - Respiratory Exam Respiratory Exam: Clear to Ausculation Bilateral, NORMAL BREATHING PATTERN - Cardiovascular Exam Cardiovascular Exam: REGULAR RHYTHM, +S1, +S2 - GI/Abdominal Exam GI & Abdominal Exam: Soft, Normal Bowel Sounds. absent: Rebound - Neurological Exam Neurological Exam: Altered - Skin Skin Exam: Dry, Intact, Normal Color, Warm Assessment and Plan - Assessment and Plan (Free Text) Assessment: 88 yo male with new onset of urinary and bowel incontinence with h/o alzheimers, dementia and confusion has worsen Admitted for Pneumonia. Today patient is combative, confused, placed 1:1 CT chest: pleural effusion noted b/l worst on RIGHT. Preliminary reading Head CT : no acute CVA altered mental status, worsening behavior possible metabolic encephalopathy WBC 20.8, Fever of 101.2 on 02/25/19 ( currently afebrile for past 24h) Patient on Vancomycin 1Gm, Meropenem 500mg Azithromycin added ID on case + urine Culture; proteus Will follow up BC/UC Continue 1:1 AST/ALT elevated 126/138 ALk po 280 F/U ammonia Psych consulted, follow up recommendation Alzheimer Cont Namenda and Aricept DVT prophylaxis Lovenox 40SC
[2019-02-27 07:25] LABS: BASO # 0.2 K/uL (0.0-0.2); BASO % 0.9 % (0.0-2.0); EOS # 0.5 K/uL (0.0-0.7); EOS % 2.5 % (0.0-4.0); HEMOGLOBIN 12.9 g/dL (12.0-16.0); LYMPH # 0.9 K/uL (1.0-4.3); LYMPH % 4.2 % (20.0-40.0); MEAN CELL VOLUME 92.8 fl (81.0-99.0); MEAN CORPUSCULAR HEMOGLOBIN 30.2 pg (27.0-31.0); MEAN CORPUSCULAR HGB CONC 32.6 g/dL (33.0-37.0); MEAN PLATELET VOLUME 10.3 fl (7.2-11.7); MONO # 1.3 K/uL (0.0-0.8); MONO % 6.2 % (0.0-10.0); NEUT # 17.9 K/uL (1.8-7.0); NEUT % 86.2 % (50.0-75.0); NRBC % 0.1 % (0.0-0.0); RBC 4.27 Mil/uL (3.80-5.20); RED CELL DISTRIBUTION WIDTH 14.8 % (11.5-14.5); WHITE BLOOD COUNT 20.8 K/uL (4.8-10.8)
[2019-02-27 08:23] LABS: ALB/GLOB RATIO 0.7 (1.0-2.1); ALBUMIN 2.5 g/dL (3.5-5.0); CALCIUM 8.6 mg/dL (8.4-10.2)
[2019-02-27] MEDS: Sodium Chloride 0.9% 1,000 ML IV SCH ×2 (09:10→21:26)
[2019-02-27] MEDS: Azithromycin 500 MG in Sodium Chloride 0.9% 250 ML IVPB SCH (09:58)
[2019-02-27] MEDS: Dorzolamide 2% Ophth Soln OU SCH ×3 (10:00→16:25)
[2019-02-27] MEDS: guaiFENesin-DM 600-30 mg ER Tab PO SCH ×2 (10:30→22:24)
--- NOTE | 2019-02-27 12:40 | CP.PCM.PN ---
Subjective - Date & Time of Evaluation Date of Evaluation: 02/27/19 Time of Evaluation: 09:00 - Subjective Subjective: persistent leukocytosis Now with elevated alk phos/ LFTs r/o cholecystitis CT abd pending Objective - Vital Signs/Intake and Output Vital Signs (last 24 hours): Temp Pulse Resp BP Pulse Ox 98.3 F 93 H 18 116/79 99 02/27/19 12:16 02/27/19 12:16 02/27/19 12:16 02/27/19 12:16 02/27/19 12:16 - Medications Medications: Current Medications Acetaminophen (Tylenol 325mg Tab) 650 mg PO Q4 PRN PRN Reason: Fever >100.4 F Last Admin: 02/25/19 19:45 Dose: 650 mg Alprazolam (Xanax) 0.25 mg PO DAILY [facility] Stop: 03/06/19 21:01 Aspirin (Ecotrin) 81 mg PO DAILY [facility] Last Admin: 02/26/19 09:21 Dose: 81 mg Donepezil HCl (Aricept) 10 mg PO HS [facility] Last Admin: 02/26/19 21:15 Dose: 10 mg Dorzolamide HCl (Trusopt) 1 drop OU TID [facility] Last Admin: 02/27/19 10:00 Dose: 1 drop Enoxaparin Sodium (Lovenox) 30 mg SC DAILY [facility]; Protocol Guaifenesin/Dextromethorphan (Mucinex-Dm 600-30 Mg) 1 tab PO Q12 [facility] Meropenem 500 mg/ Sodium (Chloride) 100 mls @ 100 mls/hr IVPB Q8 [facility]; Protocol Last Admin: 02/27/19 09:57 Dose: 100 mls/hr Vancomycin HCl 1 gm/ Sodium (Chloride) 250 mls @ 166.667 mls/hr IVPB Q24H [facility]; Protocol Last Admin: 02/26/19 23:01 Dose: 166.667 mls/hr Azithromycin 500 mg/ Sodium (Chloride) 250 mls @ 250 mls/hr IVPB DAILY [facility]; Protocol Last Admin: 02/27/19 09:58 Dose: 250 mls/hr Sodium Chloride (Sodium Chloride 0.9%) 1,000 mls @ 100 mls/hr IV .Q10H [facility] Stop: 02/28/19 08:45 Memantine (Namenda) 10 mg PO Q12 [facility] Last Admin: 02/26/19 21:15 Dose: 10 mg Timolol Maleate (Timoptic 0.5% [facility]) 1 drop OU Q12 [facility] Last Admin: 02/27/19 10:00 Dose: 1 drop - Labs Labs: 02/27/19 07:06 02/27/19 07:30 - Constitutional Appears: No Acute Distress, Confused, Cachectic, Chronically Ill - Head Exam Head Exam: ATRAUMATIC, NORMAL INSPECTION, NORMOCEPHALIC - Eye Exam Eye Exam: EOMI, Normal appearance, PERRL Pupil Exam: NORMAL ACCOMODATION, PERRL - ENT Exam ENT Exam: Mucous Membranes Moist, Normal Exam - Neck Exam Neck Exam: Full ROM, Normal Inspection. absent: Lymphadenopathy - Respiratory Exam Respiratory Exam: Clear to Ausculation Bilateral, NORMAL BREATHING PATTERN - Cardiovascular Exam Cardiovascular Exam: REGULAR RHYTHM, +S1, +S2. absent: Murmur - GI/Abdominal Exam GI & Abdominal Exam: Soft, Normal Bowel Sounds. absent: Tenderness - Rectal Exam Rectal Exam: Deferred - Exam Exam: NORMAL INSPECTION - Extremities Exam Extremities Exam: Full ROM, Normal Capillary Refill, Normal Inspection. absent: Joint Swelling, Pedal Edema - Back Exam Back Exam: NORMAL INSPECTION - Neurological Exam Neurological Exam: Alert, Altered, Awake, CN II-XII Intact. absent: Normal Gait, Oriented x3 - Psychiatric Exam Psychiatric exam: Normal Affect, Normal Mood - Skin Skin Exam: Dry, Intact, Normal Color, Warm Assessment and Plan (1) Pneumonia Status: Acute (2) Sepsis Status: Acute (3) UTI (urinary tract infection) Status: Acute (4) Dementia Status: Chronic (5) Essential (primary) hypertension Status: Chronic - Assessment and Plan (Free Text) Assessment: r/o cholecystitis cont rx pneumonia AWAIT CT ABD
[2019-02-27 14:10] LABS: ABG ALLEN TEST YES; ARTERIAL BLOOD GAS HCO3 25.4 mmol/L (21-28); ARTERIAL BLOOD GAS HEMOGLOBIN 12.8 g/dL (11.7-17.4); ARTERIAL BLOOD GAS O2 CAPACITY 17.4 mL/dL (16-24); ARTERIAL BLOOD GAS O2 CONTENT 16.5 ML/dL (15-23); ARTERIAL BLOOD GAS O2 SAT 95.1 % (95-98); ARTERIAL BLOOD GAS PCO2 33 mm/Hg (35-45); ARTERIAL BLOOD GAS PH 7.47 (7.35-7.45); ARTERIAL BLOOD GAS PO2 62 mm/Hg (80-100)
--- NOTE | 2019-02-27 15:53 | CT ---
Date of service: 02/27/2019 PROCEDURE: CT Chest, Abdomen and Pelvis without intravenous contrast HISTORY: persistent leukocytosis, with ABX COMPARISON: CT abdomen/pelvis 08/09/2015 TECHNIQUE: Radiation dose: Total exam DLP = 672.75 mGy-cm. This CT exam was performed using one or more of the following dose reduction techniques: Automated exposure control, adjustment of the mA and/or kV according to patient size, and/or use of iterative reconstruction technique. FINDINGS: CT CHEST WITHOUT CONTRAST: LUNGS: Bilateral lower lobe compressive subsegmental atelectasis, right greater than left. No pulmonary infiltrate. MEDIASTINUM: 10 mm nodule arising from lower pole right lobe of thyroid. There is also a coarse calcification in the right lobe of the thyroid. There is a 2nd upper pole nodule in the thyroid measuring 8 mm. Recommend correlation with thyroid ultrasound examination.. Normal caliber aorta and pulmonary arterial trunk. Normal size heart. LYMPH NODES: Unremarkable. PLEURA: Small left and moderate right pleural effusion. No pneumothorax. BONES: Unremarkable. OTHER FINDINGS: None. CT ABDOMEN AND PELVIS: LIVER: Unremarkable. No gross lesion or ductal dilatation. GALLBLADDER AND BILE DUCTS: Unremarkable. PANCREAS: Unremarkable. No gross lesion or ductal dilatation. SPLEEN: Unremarkable. ADRENALS: Unremarkable. No mass. KIDNEYS AND URETERS: Multiple bilateral renal cortical cysts, largest lower pole left kidney, measuring 5.2 cm. These are unchanged from examination of 08/09/2015. no calculus or hydronephrosis. VASCULATURE: There is atherosclerotic calcification of the abdominal aorta. There is no evidence of abdominal aortic aneurysm. BOWEL: Sigmoid diverticulosis. No evidence of diverticulitis. No bowel obstruction. No other abnormal bowel loops are identified. APPENDIX: Normal appendix. PERITONEUM: Unremarkable. No free fluid. No free air. LYMPH NODES: Unremarkable. No enlarged lymph nodes. BLADDER: Unremarkable. REPRODUCTIVE: Normal uterus BONES: Moderate compression deformity of the L1 and L3 vertebral bodies new since 2014. Age indeterminate. OTHER FINDINGS: None. IMPRESSION: Bilateral lower lobe subsegmental compressive atelectasis. Moderate right and small left pleural effusion. No infiltrate. Additional nonacute findings as above. Please note multiple thyroid nodules for which correlation with thyroid ultrasound examination is advised.
[2019-02-27] MEDS: Enoxaparin 30 mg Syringe SC SCH (16:23)
[2019-02-27 16:27] LABS: HEPATITIS B SURFACE AG Negative (NEGATIVE)
[2019-02-27 16:33] LABS: HEPATITIS A IGM NEGATIVE (NEGATIVE); HEPATITIS B CORE AB NEGATIVE (NEGATIVE)
[2019-02-27 16:44] LABS: HEPATITIS C ANTIBODY NEGATIVE (NEGATIVE)
[2019-02-28] MEDS: Meropenem 500 MG in Sodium Chloride 0.9% 100 ML IVPB SCH ×3 (01:45→18:55)
[2019-02-28] MEDS: Sodium Chloride 0.9% 1,000 ML IV SCH (05:44)
--- NOTE | 2019-02-28 08:17 | CP.PCM.PN ---
Subjective - Date & Time of Evaluation Date of Evaluation: 02/28/19 Time of Evaluation: 07:00 - Subjective Subjective: Patient seen and examined at bedside. No acute change. Patient still respond to sound but does not communicate. Objective - Vital Signs/Intake and Output Vital Signs (last 24 hours): Temp Pulse Resp BP Pulse Ox 97.6 F 93 H 16 109/74 96 02/28/19 05:12 02/28/19 05:12 02/28/19 05:12 02/28/19 05:12 02/28/19 05:12 - Medications Medications: Current Medications Acetaminophen (Tylenol 325mg Tab) 650 mg PO Q4 PRN PRN Reason: Fever >100.4 F Last Admin: 02/25/19 19:45 Dose: 650 mg Alprazolam (Xanax) 0.25 mg PO DAILY [facility] Stop: 03/06/19 21:01 Last Admin: 02/27/19 22:23 Dose: 0.25 mg Aspirin (Ecotrin) 81 mg PO DAILY [facility] Last Admin: 02/27/19 16:23 Dose: 81 mg Donepezil HCl (Aricept) 10 mg PO HS [facility] Last Admin: 02/27/19 22:24 Dose: 10 mg Dorzolamide HCl (Trusopt) 1 drop OU TID [facility] Last Admin: 02/27/19 16:25 Dose: 1 drop Enoxaparin Sodium (Lovenox) 30 mg SC DAILY [facility]; Protocol Last Admin: 02/27/19 16:23 Dose: 30 mg Guaifenesin/Dextromethorphan (Mucinex-Dm 600-30 Mg) 1 tab PO Q12 [facility] Last Admin: 02/27/19 22:24 Dose: 1 tab Meropenem 500 mg/ Sodium (Chloride) 100 mls @ 100 mls/hr IVPB Q8 [facility]; Protocol Last Admin: 02/28/19 01:45 Dose: 100 mls/hr Vancomycin HCl 1 gm/ Sodium (Chloride) 250 mls @ 166.667 mls/hr IVPB Q24H [facility]; Protocol Last Admin: 02/27/19 22:23 Dose: 166.667 mls/hr Azithromycin 500 mg/ Sodium (Chloride) 250 mls @ 250 mls/hr IVPB DAILY [facility]; Protocol Last Admin: 02/27/19 09:58 Dose: 250 mls/hr Sodium Chloride (Sodium Chloride 0.9%) 1,000 mls @ 100 mls/hr IV .Q10H [facility] Stop: 02/28/19 08:45 Last Admin: 02/28/19 05:44 Dose: 100 mls/hr Memantine (Namenda) 10 mg PO Q12 [facility] Last Admin: 02/27/19 22:24 Dose: 10 mg Timolol Maleate (Timoptic 0.5% Ophth Soln) 1 drop OU Q12 [facility] Last Admin: 02/27/19 22:25 Dose: 1 drop - Labs Labs: 02/27/19 07:06 02/27/19 07:30 - Constitutional Appears: Confused - Head Exam Head Exam: ATRAUMATIC, NORMAL INSPECTION, NORMOCEPHALIC - Eye Exam Eye Exam: EOMI, Normal appearance, PERRL Pupil Exam: NORMAL ACCOMODATION, PERRL - ENT Exam ENT Exam: Mucous Membranes Moist, Normal Exam - Neck Exam Neck Exam: Full ROM, Normal Inspection - Respiratory Exam Respiratory Exam: Rhonchi, NORMAL BREATHING PATTERN - Cardiovascular Exam Cardiovascular Exam: REGULAR RHYTHM, +S1, +S2 - GI/Abdominal Exam GI & Abdominal Exam: Soft, Normal Bowel Sounds - Neurological Exam Neurological Exam: Altered - Skin Skin Exam: Dry, Intact, Normal Color, Warm Assessment and Plan - Assessment and Plan (Free Text) Assessment: 88 yo male with new onset of urinary and bowel incontinence with h/o Alzheimer, dementia and confusion has worsen Admitted for Pneumonia. Altered, but calm, respond to voice, but does not communicate CT chest: Bilateral lower lobe subsegmental compressive atelectais. Mod right and small left pleural effusion. No infiltrate. Additional nonacute finding as above. Thyriod US is advised Head CT : no acute CVA altered mental status, worsening behavior possible metabolic encephalopathy WBC 20.3,Afebrile, Patient on Vancomycin 1Gm, Meropenem 500mg , Azythro 500mg ID on case + urine Culture; proteus BC/UC no culture Vanco 14.7 Continue 1:1 PICC line placed F/U MRI Psych consulted, follow up recommendation High LFT level with altered mentation Improving AST/ALT 79/100 Alk 265 Ammonia 17 Alzheimer Cont Namenda and Aricept DVT prophylaxis Lovenox 40SC
[2019-02-28] MEDS: Enoxaparin 30 mg Syringe SC SCH (09:23)
[2019-02-28] MEDS: guaiFENesin-DM 600-30 mg ER Tab PO SCH ×2 (09:24→21:00)
[2019-02-28] MEDS: Azithromycin 500 MG in Sodium Chloride 0.9% 250 ML IVPB SCH (09:26)
[2019-02-28] MEDS: Dorzolamide 2% Ophth Soln OU SCH ×3 (09:26→18:58)
[2019-02-28 11:21] LABS: BASO # 0.1 K/uL (0.0-0.2); BASO % 0.5 % (0.0-2.0); EOS # 0.1 K/uL (0.0-0.7); EOS % 0.6 % (0.0-4.0); HEMOGLOBIN 12.6 g/dL (12.0-16.0); LYMPH # 0.8 K/uL (1.0-4.3); LYMPH % 4.1 % (20.0-40.0); MEAN CELL VOLUME 92.5 fl (81.0-99.0); MEAN CORPUSCULAR HEMOGLOBIN 30.4 pg (27.0-31.0); MEAN CORPUSCULAR HGB CONC 32.9 g/dL (33.0-37.0); MEAN PLATELET VOLUME 9.5 fl (7.2-11.7); MONO # 1.1 K/uL (0.0-0.8); MONO % 5.3 % (0.0-10.0); NEUT # 18.2 K/uL (1.8-7.0); NEUT % 89.5 % (50.0-75.0); NRBC % 0.1 % (0.0-0.0); RBC 4.13 Mil/uL (3.80-5.20); RED CELL DISTRIBUTION WIDTH 14.9 % (11.5-14.5); WHITE BLOOD COUNT 20.3 K/uL (4.8-10.8)
[2019-02-28 11:33] LABS: ALB/GLOB RATIO 0.7 (1.0-2.1); ALBUMIN 2.6 g/dL (3.5-5.0); ALT/SGPT 100 U/L (9-52); AST/SGOT 79 U/L (14-36); BLOOD UREA NITROGEN 26 mg/dl (7-17); CALCIUM 8.7 mg/dL (8.4-10.2); GFR NON-AFRICAN AMERICAN 52
[2019-02-28] MEDS ORDERED: Lidocaine Hydrochloride 5 ML INJ ONE (12:36)
--- NOTE | 2019-02-28 12:53 | PCM.SURG1 ---
Surgeon's Initial Post Op Note - Surgeon's Notes Surgeon: Sung Moseley MD Office Engineer: NONE Type of Anesthesia: Local Pre-Operative Diagnosis: Infection Operative Findings: Patent right arm basilic vein Post-Operative Diagnosis: Infection Operation Performed: Single lumen picc placement right basilic vein, 35 cm Specimen/Specimens Removed: none Estimated Blood Loss: EBL {In ML}: 2 Blood Products Given: N/A Drains Used: No Drains Post-Op Condition: Fair Date of Surgery/Procedure: 02/28/19 Time of Surgery/Procedure: 12:50
--- NOTE | 2019-02-28 13:05 | VASCULAR ---
PROCEDURE: Date of procedure: 02/28/2019 Procedure: 1. Placement of a right arm PICC with ultrasound and fluoroscopic guidance, CPT 38200 2. PICC tip confirmation with spot radiograph and is in the superior vena cava Medications: 3 cc 1 percent lidocaine Total Fluoro time: 1.8 Seconds Radiation: 0.22 MGy EBL: 2 cc HISTORY: Infection requiring long-term IV antibiotics TECHNIQUE: Following informed consent and procedure time-out, the patient was placed supine on the interventional table and the right arm prepped and draped in the usual sterile fashion. Ultrasound showed a patent and compressible right basilic vein. After the skin was anesthetized with lidocaine, the basilic vein was accessed with micro micropuncture technique using ultrasound guidance. A guidewire was then advanced under fluoroscopic guidance into the superior vena cava. An image documenting ultrasound guidance for vascular access was permanently saved. The length of the single-lumen 4 [place] PICC was trimmed to 35 centimeters and advanced through a peel-away sheath. The PICC was position with tip of PICC confirm a spot radiograph the superior vena cava. The PICC was secured to the patient's skin. The PICC was flushed. A biopatch and sterile dressing was applied. IMPRESSION: Placement of a single-lumen 4 [place] PICC trimmed to 35 centimeters via right basilic vein. The tip of the PICC is confirmed with spot radiograph and is in the superior vena cava.
--- NOTE | 2019-02-28 22:03 | CP.PCM.PN ---
Subjective - Date & Time of Evaluation Date of Evaluation: 02/28/19 Time of Evaluation: 08:00 - Subjective Subjective: events noted IV rx in progress Objective - Vital Signs/Intake and Output Vital Signs (last 24 hours): Temp Pulse Resp BP Pulse Ox 97.9 F 96 H 20 115/72 96 02/28/19 20:28 02/28/19 20:28 02/28/19 20:28 02/28/19 20:28 02/28/19 20:28 - Medications Medications: Current Medications Acetaminophen (Tylenol 325mg Tab) 650 mg PO Q4 PRN PRN Reason: Fever >100.4 F Last Admin: 02/25/19 19:45 Dose: 650 mg Alprazolam (Xanax) 0.25 mg PO DAILY [facility] Stop: 03/06/19 21:01 Last Admin: 02/28/19 09:44 Dose: Not Given Aspirin (Ecotrin) 81 mg PO DAILY [facility] Last Admin: 02/28/19 09:23 Dose: 81 mg Donepezil HCl (Aricept) 10 mg PO HS [facility] Last Admin: 02/28/19 21:29 Dose: 10 mg Dorzolamide HCl (Trusopt) 1 drop OU TID [facility] Last Admin: 02/28/19 18:58 Dose: 1 drop Enoxaparin Sodium (Lovenox) 30 mg SC DAILY [facility]; Protocol Last Admin: 02/28/19 09:23 Dose: 30 mg Guaifenesin/Dextromethorphan (Mucinex-Dm 600-30 Mg) 1 tab PO Q12 [facility] Last Admin: 02/28/19 09:24 Dose: 1 tab Meropenem 500 mg/ Sodium (Chloride) 100 mls @ 100 mls/hr IVPB Q8 [facility]; Protocol Last Admin: 02/28/19 18:55 Dose: 100 mls/hr Vancomycin HCl 1 gm/ Sodium (Chloride) 250 mls @ 166.667 mls/hr IVPB Q24H [facility]; Protocol Last Admin: 02/28/19 21:28 Dose: 166.667 mls/hr Azithromycin 500 mg/ Sodium (Chloride) 250 mls @ 250 mls/hr IVPB DAILY [facility]; Protocol Last Admin: 02/28/19 09:26 Dose: 250 mls/hr Memantine (Namenda) 10 mg PO Q12 [facility] Last Admin: 02/28/19 21:29 Dose: 10 mg Timolol Maleate (Timoptic 0.5% Ophth Soln) 1 drop OU Q12 [facility] Last Admin: 02/28/19 21:30 Dose: 1 drop - Labs Labs: 02/28/19 10:30 02/28/19 10:30 - Constitutional Appears: Confused - Head Exam Head Exam: NORMOCEPHALIC (x) - Eye Exam Eye Exam: absent: Scleral icterus Pupil Exam: NORMAL ACCOMODATION - ENT Exam ENT Exam: Mucous Membranes Dry - Neck Exam Neck Exam: absent: Lymphadenopathy - Respiratory Exam Respiratory Exam: Decreased Breath Sounds - Cardiovascular Exam Cardiovascular Exam: REGULAR RHYTHM, +S1, +S2 - GI/Abdominal Exam GI & Abdominal Exam: Distended, Soft - Rectal Exam Rectal Exam: Deferred - Exam Exam: NORMAL INSPECTION - Extremities Exam Extremities Exam: absent: Pedal Edema - Back Exam Back Exam: absent: CVA tenderness (L), CVA tenderness (R) - Neurological Exam Neurological Exam: Altered - Psychiatric Exam Psychiatric exam: Depressed Assessment and Plan (1) Pneumonia Status: Acute (2) Sepsis Status: Acute (3) UTI (urinary tract infection) Status: Acute (4) Dementia Status: Chronic (5) Essential (primary) hypertension Status: Chronic - Assessment and Plan (Free Text) Assessment: persistent leukocytosis'no new positive cultures IV rx renewed Plan: transaminitis- possibly med related- rx adjusted
[2019-03-01] MEDS: Meropenem 500 MG in Sodium Chloride 0.9% 100 ML IVPB SCH ×3 (00:51→16:27)
[2019-03-01 06:02] LABS: HEMOGLOBIN 12.1 g/dL (12.0-16.0); MEAN CORPUSCULAR HEMOGLOBIN 30.4 pg (27.0-31.0); RBC 3.98 Mil/uL (3.80-5.20); RED CELL DISTRIBUTION WIDTH 15.1 % (11.5-14.5); WHITE BLOOD COUNT 20.9 K/uL (4.8-10.8)
[2019-03-01 06:18] LABS: ALB/GLOB RATIO 0.6 (1.0-2.1); ALBUMIN 2.5 g/dL (3.5-5.0); ALT/SGPT 124 U/L (9-52); AST/SGOT 168 U/L (14-36); BLOOD UREA NITROGEN 25 mg/dl (7-17); CALCIUM 8.7 mg/dL (8.4-10.2); GFR NON-AFRICAN AMERICAN 52
--- NOTE | 2019-03-01 09:25 | CP.PCM.PN ---
Subjective - Date & Time of Evaluation Date of Evaluation: 03/01/19 Time of Evaluation: 09:27 - Subjective Subjective: AWAKE AND RESPONDING TO VERBAL COMMANDS CONFUSED NEW R ARM WEAKNESS NO SOB VSS Objective - Vital Signs/Intake and Output Vital Signs (last 24 hours): Temp Pulse Resp BP Pulse Ox 98.2 F 97 H 20 138/85 93 L 03/01/19 07:48 03/01/19 07:48 03/01/19 07:48 03/01/19 07:48 03/01/19 07:48 - Medications Medications: Current Medications Acetaminophen (Tylenol 325mg Tab) 650 mg PO Q4 PRN PRN Reason: Fever >100.4 F Last Admin: 02/25/19 19:45 Dose: 650 mg Alprazolam (Xanax) 0.25 mg PO DAILY [facility] Stop: 03/06/19 21:01 Last Admin: 02/28/19 09:44 Dose: Not Given Aspirin (Ecotrin) 81 mg PO DAILY [facility] Last Admin: 02/28/19 09:23 Dose: 81 mg Donepezil HCl (Aricept) 10 mg PO HS [facility] Last Admin: 02/28/19 21:29 Dose: 10 mg Dorzolamide HCl (Trusopt) 1 drop OU TID [facility] Last Admin: 02/28/19 18:58 Dose: 1 drop Enoxaparin Sodium (Lovenox) 30 mg SC DAILY [facility]; Protocol Last Admin: 02/28/19 09:23 Dose: 30 mg Guaifenesin/Dextromethorphan (Mucinex-Dm 600-30 Mg) 1 tab PO Q12 [facility] Last Admin: 02/28/19 21:00 Dose: 1 tab Meropenem 500 mg/ Sodium (Chloride) 100 mls @ 100 mls/hr IVPB Q8 [facility]; Protocol Last Admin: 03/01/19 00:51 Dose: 100 mls/hr Vancomycin HCl 1 gm/ Sodium (Chloride) 250 mls @ 166.667 mls/hr IVPB Q24H [facility]; Protocol Last Admin: 02/28/19 21:28 Dose: 166.667 mls/hr Azithromycin 500 mg/ Sodium (Chloride) 250 mls @ 250 mls/hr IVPB DAILY [facility]; Protocol Last Admin: 02/28/19 09:26 Dose: 250 mls/hr Memantine (Namenda) 10 mg PO Q12 [facility] Last Admin: 02/28/19 21:29 Dose: 10 mg Timolol Maleate (Timoptic 0.5% Ophth Soln) 1 drop OU Q12 [facility] Last Admin: 02/28/19 21:30 Dose: 1 drop - Labs Labs: 03/01/19 05:05 03/01/19 05:05 - Constitutional Appears: Confused, Chronically Ill - Head Exam Head Exam: ATRAUMATIC, NORMAL INSPECTION, NORMOCEPHALIC - Eye Exam Eye Exam: EOMI, Normal appearance, PERRL Pupil Exam: NORMAL ACCOMODATION, PERRL - ENT Exam ENT Exam: Mucous Membranes Moist, Normal Exam - Neck Exam Neck Exam: Full ROM, Normal Inspection. absent: Lymphadenopathy - Respiratory Exam Respiratory Exam: Decreased Breath Sounds, Prolonged Expiratory Phase, Rales, NORMAL BREATHING PATTERN - Cardiovascular Exam Cardiovascular Exam: REGULAR RHYTHM, +S1, +S2. absent: Murmur - GI/Abdominal Exam GI & Abdominal Exam: Soft, Normal Bowel Sounds. absent: Tenderness - Rectal Exam Rectal Exam: NORMAL INSPECTION - Extremities Exam Extremities Exam: Full ROM, Normal Capillary Refill. absent: Joint Swelling, Pedal Edema Additional comments: EDEMA OF R ARM - Back Exam Back Exam: NORMAL INSPECTION - Neurological Exam Neurological Exam: Abnormal Gait, Alert, Awake, CN II-XII Intact - Skin Skin Exam: Dry, Intact, Normal Color, Warm Assessment and Plan - Assessment and Plan (Free Text) Assessment: SEPSIS ALTERED MENTAL STATUS--R/O CVA DEHYDRATION PNEUMONIA WITH PLEURAL EFFUSION Plan: CONTINUE ANTIBIOTIC RX MRI OF BRAIN--R/O CVA PT EVAL IR TO EVALUATE FOR THORACENTESES
[2019-03-01] MEDS: Enoxaparin 30 mg Syringe SC SCH (09:30)
[2019-03-01] MEDS: guaiFENesin-DM 600-30 mg ER Tab PO SCH ×2 (09:30→21:55)
[2019-03-01] MEDS: Dorzolamide 2% Ophth Soln OU SCH ×3 (09:31→16:34)
[2019-03-01] MEDS: Azithromycin 500 MG in Sodium Chloride 0.9% 250 ML IVPB SCH (09:33)
--- NOTE | 2019-03-01 09:48 | MRI ---
Date of service: 03/01/2019 PROCEDURE: MRI BRAIN WITHOUT CONTRAST HISTORY: Right side weakness Upper/Lower ext COMPARISON: None available. TECHNIQUE: Multiplanar, multisequence MR images of the brain were obtained without intravenous contrast enhancement. FINDINGS: HEMORRHAGE: None DWI: There multiple scattered small acute infarcts in various vascular distributions. These measure less than 5 mm in size. These are seen in the cerebellar hemispheres bilaterally as well as the bilateral occipital lobes left parietal white matter and right frontal lobe. The distribution suggests an embolic source. Severe chronic microvascular disease is seen in the periventricular and deep white matter. BRAIN PARENCHYMA: No mass effect or edema. No atrophy or chronic microvascular ischemic changes. VENTRICLES: Unremarkable. No hydrocephalus. CRANIUM: Unremarkable. ORBITS: Grossly unremarkable. PARANASAL SINUSES/MASTOIDS: Clear VASCULAR SYSTEM: Skull base flow voids intact. OTHER FINDINGS: None. IMPRESSION: There multiple scattered small acute infarcts in various vascular distributions. These measure less than 5 mm in size. These are seen in the cerebellar hemispheres bilaterally as well as the bilateral occipital lobes left parietal white matter and right frontal lobe. The distribution suggests an embolic source. Severe chronic microvascular disease is seen in the periventricular and deep white matter.
--- NOTE | 2019-03-01 11:05 | CP.PCM.PN ---
Subjective - Date & Time of Evaluation Date of Evaluation: 03/01/19 Time of Evaluation: 08:00 - Subjective Subjective: Brought by family for new onset of urinary and bowel incontinence . has h/o Alzheimers Dementia and found to have abnormal CXR and new neuro findings Objective - Vital Signs/Intake and Output Vital Signs (last 24 hours): Temp Pulse Resp BP Pulse Ox 98.2 F 97 H 20 138/85 93 L 03/01/19 07:48 03/01/19 07:48 03/01/19 07:48 03/01/19 07:48 03/01/19 07:48 - Medications Medications: Current Medications Acetaminophen (Tylenol 325mg Tab) 650 mg PO Q4 PRN PRN Reason: Fever >100.4 F Last Admin: 02/25/19 19:45 Dose: 650 mg Alprazolam (Xanax) 0.25 mg PO DAILY [facility] Stop: 03/06/19 21:01 Last Admin: 03/01/19 09:33 Dose: 0.25 mg Aspirin (Ecotrin) 81 mg PO DAILY [facility] Last Admin: 03/01/19 09:30 Dose: 81 mg Donepezil HCl (Aricept) 10 mg PO HS [facility] Last Admin: 02/28/19 21:29 Dose: 10 mg Dorzolamide HCl (Trusopt) 1 drop OU TID [facility] Last Admin: 03/01/19 09:31 Dose: 1 drop Enoxaparin Sodium (Lovenox) 30 mg SC DAILY [facility]; Protocol Last Admin: 03/01/19 09:30 Dose: 30 mg Guaifenesin/Dextromethorphan (Mucinex-Dm 600-30 Mg) 1 tab PO Q12 [facility] Last Admin: 03/01/19 09:30 Dose: 1 tab Meropenem 500 mg/ Sodium (Chloride) 100 mls @ 100 mls/hr IVPB Q8 [facility]; Protocol Last Admin: 03/01/19 09:29 Dose: 100 mls/hr Vancomycin HCl 1 gm/ Sodium (Chloride) 250 mls @ 166.667 mls/hr IVPB Q24H [facility]; Protocol Last Admin: 02/28/19 21:28 Dose: 166.667 mls/hr Azithromycin 500 mg/ Sodium (Chloride) 250 mls @ 250 mls/hr IVPB DAILY [facility]; Protocol Last Admin: 03/01/19 09:33 Dose: 250 mls/hr Memantine (Namenda) 10 mg PO Q12 [facility] Last Admin: 03/01/19 09:30 Dose: 10 mg Timolol Maleate (Timoptic 0.5% Ophth Soln) 1 drop OU Q12 [facility] Last Admin: 03/01/19 09:31 Dose: 1 drop - Labs Labs: 03/01/19 05:05 03/01/19 05:05 - Constitutional Appears: Confused, Cachectic, Chronically Ill - Head Exam Head Exam: NORMOCEPHALIC - Eye Exam Eye Exam: absent: Scleral icterus - ENT Exam ENT Exam: Mucous Membranes Dry - Neck Exam Neck Exam: absent: Lymphadenopathy, Thyromegaly - Respiratory Exam Respiratory Exam: Decreased Breath Sounds - Cardiovascular Exam Cardiovascular Exam: REGULAR RHYTHM - GI/Abdominal Exam GI & Abdominal Exam: Distended, Soft - Rectal Exam Rectal Exam: Deferred - Exam Exam: NORMAL INSPECTION - Extremities Exam Extremities Exam: absent: Pedal Edema - Back Exam Back Exam: absent: CVA tenderness (L), CVA tenderness (R) - Neurological Exam Neurological Exam: Altered Neuro motor strength exam: Left Upper Extremity: 4, Right Upper Extremity: 2/1, Left Lower Extremity: 4, Right Lower Extremity: 2/1 - Psychiatric Exam Psychiatric exam: Depressed - Skin Skin Exam: Dry Assessment and Plan (1) Pneumonia Status: Acute (2) Sepsis Status: Acute (3) UTI (urinary tract infection) Status: Acute (4) Dementia Status: Chronic (5) Essential (primary) hypertension Status: Chronic - Assessment and Plan (Free Text) Assessment: possible CVA r/o sepsis pneumonia AMS await neuro eval cont IV antibiotics poor prognosis
[2019-03-01] MEDS ORDERED: Lidocaine Hydrochloride 1% 10 ML ONE (11:42)
--- NOTE | 2019-03-01 11:49 | PCM.SURG1 ---
Surgeon's Initial Post Op Note - Surgeon's Notes Surgeon: Sung Moseley MD Process Controls Technician: NONE Type of Anesthesia: Local Pre-Operative Diagnosis: Pleural effusion, dyspnea Operative Findings: US showed small right pleural effusion and trace left effusion Post-Operative Diagnosis: Pleural effusion, dyspnea Operation Performed: US guided right thoracentesis Specimen/Specimens Removed: 100 cc of clear fluid Estimated Blood Loss: EBL {In ML}: 0 Blood Products Given: N/A Drains Used: No Drains Post-Op Condition: Fair Date of Surgery/Procedure: 03/01/19 Time of Surgery/Procedure: 11:45
--- NOTE | 2019-03-01 12:04 | RAD ---
Date of service: 03/01/2019 PROCEDURE: CHEST RADIOGRAPH, 1 VIEW HISTORY: Status post right thoracentesis COMPARISON: None available. FINDINGS: LUNGS: The lungs are clear. PLEURA: No pneumothorax following right thoracentesis. Blunting of the right costophrenic margin consistent with trace pleural fluid. CARDIOVASCULAR: Cardiomegaly. OSSEOUS STRUCTURES: Osteopenia. VISUALIZED UPPER ABDOMEN: Normal. OTHER FINDINGS: None. IMPRESSION: No pneumothorax following right thoracentesis.
--- NOTE | 2019-03-01 12:06 | US ---
PROCEDURE: Date of procedure:03/01/2019 Procedure: 1. Ultrasound-guided Right thoracentesis, CPT 53880 Medications: 4cc 1% Lidocaine HISTORY: Right pleural effusion, shortness of breath TECHNIQUE: Following informed consent ,the Patients' right chest was marked. Procedure time-out was called, and the patient was placed in the sitting position and limited ultrasound showed a small right effusion and a trace left effusion. The patient's right back was prepped and draped in the usual sterile fashion. After the skin was anesthetized with lidocaine, a drainage catheter was advanced under ultrasound guidance into the pleural space. Ultrasound-guided thoracentesis was performed. A total of 100 cubic centimeters of clera fluid removed without complication. A Xeroform dressing was applied. IMPRESSION: Ultrasound guided Right thoracentesis. There were no immediate complications.
--- NOTE | 2019-03-01 12:30 | RAD ---
Date of service: 03/01/2019 PROCEDURE: CHEST RADIOGRAPH, 1 VIEW HISTORY: PNEUMONIA Relevant interventional procedure(s): February 28, 2019. Insertion of right PICC line COMPARISON: 02/24/2019. FINDINGS: LUNGS: Improving aeration right upper lobe. PLEURA: No pneumothorax or pleural fluid seen. CARDIOVASCULAR: Cardiomegaly. No evidence of acute, significant cardiovascular disease. Atherosclerotic calcifications identified primarily aortic arch. PICC line in satisfactory position OSSEOUS STRUCTURES: No significant abnormalities. VISUALIZED UPPER ABDOMEN: Normal. OTHER FINDINGS: None. IMPRESSION: Improving right upper lobe infiltrate. Satisfactory position of recently placed PICC line.
--- NOTE | 2019-03-01 14:14 | CP.PCM.CON ---
History of Present Illness - History of Present Illness History of Present Illness: Neurology consult note 88 yr old woman with new embolic strokes and presenting with confusion and weakness. Plan: 1. CTA head and neck 2. ECHO 3. Neuro checks 4. PT ST OT 5. aspirin 6. IV fluids NS 100 ccs per hour. PLease keep bp elevated to 180/[address] salcedo Neurology Past Patient History - Infectious Disease Hx of Infectious Diseases: None - Past Medical History & Family History Past Medical History?: Yes - Past Social History Smoking Status: Unknown If Ever Smoked - CARDIAC Hx Cardiac Disorders: Yes - PULMONARY Hx Respiratory Disorders: No - NEUROLOGICAL Hx Alzheimer's Disease: Yes Hx Dementia: Yes - HEENT Hx Cataracts: Yes Hx Glaucoma: Yes - RENAL Hx Chronic Kidney Disease: No - HEMATOLOGICAL/ONCOLOGICAL Hx Human Immunodeficiency Virus (HIV): No - INTEGUMENTARY Hx Dermatological Problems: No - MUSCULOSKELETAL/RHEUMATOLOGICAL Hx Falls: Yes - GASTROINTESTINAL Hx Gastrointestinal Disorders: No - GENITOURINARY/GYNECOLOGICAL Hx Incontinence: Yes - PSYCHIATRIC Hx Substance Use: No - SURGICAL HISTORY Hx Surgeries: Yes Hx Eye Surgery: Yes Other/Comment: lumpectomy/abdominal sx - ANESTHESIA Hx Anesthesia: Yes Hx Anesthesia Reactions: No Hx Malignant Hyperthermia: No Meds Allergies/Adverse Reactions: Allergies Allergy/AdvReac Type Severity Reaction Status Date / Time No Known Allergies Allergy Verified 03/11/18 14:10 - Medications Medications: Current Medications Acetaminophen (Tylenol 325mg Tab) 650 mg PO Q4 PRN PRN Reason: Fever >100.4 F Last Admin: 02/25/19 19:45 Dose: 650 mg Alprazolam (Xanax) 0.25 mg PO DAILY [facility] Stop: 03/06/19 21:01 Last Admin: 03/01/19 09:33 Dose: 0.25 mg Aspirin (Ecotrin) 81 mg PO DAILY [facility] Last Admin: 03/01/19 09:30 Dose: 81 mg Donepezil HCl (Aricept) 10 mg PO HS [facility] Last Admin: 02/28/19 21:29 Dose: 10 mg Dorzolamide HCl (Trusopt) 1 drop OU TID [facility] Last Admin: 03/01/19 09:31 Dose: 1 drop Enoxaparin Sodium (Lovenox) 30 mg SC DAILY [facility]; Protocol Last Admin: 03/01/19 09:30 Dose: 30 mg Guaifenesin/Dextromethorphan (Mucinex-Dm 600-30 Mg) 1 tab PO Q12 [facility] Last Admin: 03/01/19 09:30 Dose: 1 tab Meropenem 500 mg/ Sodium (Chloride) 100 mls @ 100 mls/hr IVPB Q8 [facility]; Protocol Last Admin: 03/01/19 09:29 Dose: 100 mls/hr Vancomycin HCl 1 gm/ Sodium (Chloride) 250 mls @ 166.667 mls/hr IVPB Q24H [facility]; Protocol Last Admin: 02/28/19 21:28 Dose: 166.667 mls/hr Azithromycin 500 mg/ Sodium (Chloride) 250 mls @ 250 mls/hr IVPB DAILY [facility]; Protocol Last Admin: 03/01/19 09:33 Dose: 250 mls/hr Memantine (Namenda) 10 mg PO Q12 [facility] Last Admin: 03/01/19 09:30 Dose: 10 mg Timolol Maleate (Timoptic 0.5% [facility]) 1 drop OU Q12 [facility] Last Admin: 03/01/19 09:31 Dose: 1 drop Results - Vital Signs Recent Vital Signs: Last Vital Signs Temp 98.5 F 03/01/19 11:55 Pulse 91 H 03/01/19 11:55 Resp 18 03/01/19 11:55 BP 134/87 03/01/19 11:55 Pulse Ox 92 L 03/01/19 11:55 - Labs Result Diagrams: 03/01/19 05:05 03/01/19 05:05 Labs: Laboratory Results - last 24 hr 03/01/19 03/01/19 05:05 05:05 WBC 20.9 H RBC 3.98 Hgb 12.1 Hct 36.6 MCV 92.0 MCH 30.4 MCHC 33.0 RDW 15.1 H Plt Count 260 Sodium 141 Potassium 3.4 L Chloride 110 H Carbon Dioxide 24 Anion Gap 10 BUN 25 H Creatinine 1.0 Est GFR ( Amer) > 60 Est GFR (Non-Af Amer) 52 Random Glucose 127 H Calcium 8.7 Phosphorus 3.0 Magnesium 2.1 Total Bilirubin 0.7 AST 168 H D ALT 124 H D Alkaline Phosphatase 311 H Total Protein 6.4 Albumin 2.5 L Globulin 3.9 Albumin/Globulin Ratio 0.6 L
[2019-03-01] MEDS ORDERED: Sodium Chloride 0.9% 50 ML IV ONE (15:04)
[2019-03-01] MEDS ORDERED: Iodixanol 320 MG/ML 100 ML BOTTLE IV ONE (15:04)
--- NOTE | 2019-03-01 15:58 | CT ---
Date of service: 03/01/2019 PROCEDURE: CT Angiography of the neck with contrast HISTORY: weakness COMPARISON: None. TECHNIQUE: Contiguous axial images of the neck were obtained from the level of the skull-base to the superior mediastinum in the arteriographic phase of enhancement. Coronal and sagittal reformats or also generated. IV contrast dose: Radiation dose: Total exam DLP = 367.89 mGy-cm. This CT exam was performed using one or more of the following dose reduction techniques: Automated exposure control, adjustment of the mA and/or kV according to patient size, and/or use of iterative reconstruction technique. FINDINGS: RIGHT CAROTID ARTERIES: There is severe tortuosity of the carotid arteries without significant stenosis LEFT CAROTID ARTERIES: There is severe tortuosity of the carotid arteries without significant stenosis VERTEBRAL ARTERIES: Right Vertebral Artery: Normal. Left Vertebral Artery: Normal. OTHER FINDINGS: no aortic atherosclerotic calcification or mural plaque present. IMPRESSION: There is severe tortuosity of the proximal internal carotid arteries without significant stenosis CT Angiography of the Brain. HISTORY: weakness COMPARISON: None available. TECHNIQUE: CT angiography of the intracranial arteries was performed. Coronal and sagittal maximum intensity projection reformated images were generated. Radiation dose: Total exam DLP = 367.89 mGy-cm. This CT exam was performed using one or more of the following dose reduction techniques: Automated exposure control, adjustment of the mA and/or kV according to patient size, and/or use of iterative reconstruction technique. FINDINGS: INTERNAL CEREBRAL ARTERIES: The internal carotid arteries are heavily calcified but patent. ANTERIOR CEREBRAL ARTERIES: Unremarkable. A1 and A2 segments are widely patent. Smaller distal branches unremarkable, as visualized. MIDDLE CEREBRAL ARTERIES: Unremarkable. M1 and M2 segments are widely patent. Perisylvian branches grossly symmetric. POSTERIOR CIRCULATION: Basilar Artery: Unremarkable. Distal Vertebral Arteries: Unremarkable. Posterior Cerebral Arteries: Unremarkable. Posterior Inferior Cerebellar Arteries: Unremarkable. ANEURYSM/ VASCULAR MALFORMATIONS: None. OTHER FINDINGS: None. IMPRESSION: Unremarkable CT Angiography of the Brain.
[2019-03-02] MEDS: Meropenem 500 MG in Sodium Chloride 0.9% 100 ML IVPB SCH ×3 (01:29→16:38)
[2019-03-02 05:35] LABS: BASO # 0.2 K/uL (0.0-0.2); BASO % 0.7 % (0.0-2.0); EOS # 0.7 K/uL (0.0-0.7); EOS % 3.2 % (0.0-4.0); HEMOGLOBIN 11.7 g/dL (12.0-16.0); LYMPH % 4.6 % (20.0-40.0); MEAN CELL VOLUME 92.4 fl (81.0-99.0); MEAN CORPUSCULAR HEMOGLOBIN 29.8 pg (27.0-31.0); MEAN CORPUSCULAR HGB CONC 32.2 g/dL (33.0-37.0); MEAN PLATELET VOLUME 9.8 fl (7.2-11.7); MONO # 1.2 K/uL (0.0-0.8); NEUT # 17.7 K/uL (1.8-7.0); NEUT % 85.5 % (50.0-75.0); NRBC % 0.1 % (0.0-0.0); PLATELET COUNT 233 K/uL (130-400); RBC 3.93 Mil/uL (3.80-5.20); RED CELL DISTRIBUTION WIDTH 15.2 % (11.5-14.5); WHITE BLOOD COUNT 20.7 K/uL (4.8-10.8)
[2019-03-02 05:44] LABS: BLOOD UREA NITROGEN 23 mg/dl (7-17); CALCIUM 8.1 mg/dL (8.4-10.2); GFR NON-AFRICAN AMERICAN > 60
[2019-03-02 08:44] LABS: BASOPHIL 1 % (0-2); EOSINOPHIL 4 % (0-7); LYMPHOCYTE 8 % (20-50); MONOCYTE 6 % (0-10); NEUTROPHIL 81 % (42-75); PLATELET ESTIMATE NORMAL (NORMAL); TOTAL CELLS COUNTED 100
[2019-03-02 08:45] LABS: ANISOCYTOSIS SLIGHT; LARGE PLATELETS PRESENT; OVALOCYTES SLIGHT
--- NOTE | 2019-03-02 09:19 | CON ---
DATE: 03/01/2019 NEUROLOGY CONSULTATION HISTORY OF PRESENT ILLNESS: Ms. Chang is an 88-year-old woman who has been in [facility] since 02/22/2019. She was brought by the family intermittently over the past few days. She has a history of Alzheimer's dementia. At that point, they thought that her confusion had worsened recently. Dr. Muro was consulted, and she was started on IV antibiotics. She continued to improve on meropenem on 02/28/2019. On 02/27/2019, the patient was seen at bedside. It was noted that she may have been more lethargic and had some right-sided weakness. Time of onset, unknown. Therefore, she is not a tPA candidate. MRI of the brain ordered and it therefore showed multiple scattered small few infarcts less than 5 mm in size in the cerebellar hemispheres bilaterally as well as the bilateral occipital lobe ____ white matter right bundle lobe. There is no hemorrhage. There are no other strokes noted. On examination, today the patient was able to tell me that she has some fatigue. She is plegic on her right side, which the son states is new in onset. MEDICATIONS: She is on the following medications: Tylenol, Xanax, aspirin, Zithromax, donepezil, Lovenox, guaifenesin, and Namenda. PHYSICAL EXAMINATION: GENERAL: On examination, the patient is alert and oriented x1. She does not know the date or the year, does identify her son. HEENT: Pupils equal, round, reactive to light. EXTREMITIES: She does have some left-sided neglect. She is moving her left arm and leg briskly. She is speaking. She is naming and repeating, following commands. The right arm is completely in the right arm and right leg compared to left arm and left leg. Gait is not tested. LABORATORY DATA: As follows: White count 20.9, hemoglobin 12, hematocrit 38.6, platelets 260. Chemistry, sodium 141, potassium 3.4, chloride 110, BUN 25, creatinine 1, glucose 127, AST and ALT 124 and 311. The patient appears to be in mild liver failure. TSH is normal. Urine is normal. Toxicology shows a vancomycin trough of 14.7 which is within normal limits. MRI of the brain was discussed previously. IMPRESSION: This is an 88 -year-old woman who has multiple bouts of stroke, most likely cardiac in origin. PLAN: 1. Neuro checks. 2. CT of the head and neck BELA. 3. Start aspirin and Plavix. 4. Keep blood pressure elevated. 5. PT/ST/OT. 6. Lipid profile. 7. Start Lipitor due to elevated LFTs. 8. . Thank you for this interesting consult. Maxwell Fajardo MD
--- NOTE | 2019-03-02 09:20 | CP.PCM.PN ---
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 MRI OF BRAIN-ACUTE CVA S/P THORACENTESES--RESULTS OF PLEURAL FLUID NOT FOUND IN COMPUTER--WILL CHECK WITH IR Objective - Vital Signs/Intake and Output Vital Signs (last 24 hours): Temp Pulse Resp BP Pulse Ox 97.6 F 79 20 129/82 95 03/02/19 08:00 03/02/19 08:00 03/02/19 08:00 03/02/19 08:00 03/02/19 08:00 - Medications Medications: Current Medications Acetaminophen (Tylenol 325mg Tab) 650 mg PO Q4 PRN PRN Reason: Fever >100.4 F Last Admin: 02/25/19 19:45 Dose: 650 mg Alprazolam (Xanax) 0.25 mg PO DAILY [facility] Stop: 03/06/19 21:01 Last Admin: 03/01/19 09:33 Dose: 0.25 mg Aspirin (Ecotrin) 81 mg PO DAILY [facility] Last Admin: 03/01/19 09:30 Dose: 81 mg Donepezil HCl (Aricept) 10 mg PO HS [facility] Last Admin: 03/01/19 21:55 Dose: 10 mg Dorzolamide HCl (Trusopt) 1 drop OU TID [facility] Last Admin: 03/01/19 16:34 Dose: 1 drop Enoxaparin Sodium (Lovenox) 30 mg SC DAILY [facility]; Protocol Last Admin: 03/01/19 09:30 Dose: 30 mg Guaifenesin/Dextromethorphan (Mucinex-Dm 600-30 Mg) 1 tab PO Q12 [facility] Last Admin: 03/01/19 21:55 Dose: 1 tab Meropenem 500 mg/ Sodium (Chloride) 100 mls @ 100 mls/hr IVPB Q8 [facility]; Protocol Last Admin: 03/02/19 01:29 Dose: 100 mls/hr Vancomycin HCl 1 gm/ Sodium (Chloride) 250 mls @ 166.667 mls/hr IVPB Q24H [facility]; Protocol Last Admin: 03/01/19 21:54 Dose: 166.667 mls/hr Azithromycin 500 mg/ Sodium (Chloride) 250 mls @ 250 mls/hr IVPB DAILY [facility]; Protocol Last Admin: 03/01/19 09:33 Dose: 250 mls/hr Lactobacillus Acidophilus (Bacid Acidophilus) 1 cap PO BID [facility] Memantine (Namenda) 10 mg PO Q12 [facility] Last Admin: 03/01/19 21:55 Dose: 10 mg Timolol Maleate (Timoptic 0.5% Ophth Soln) 1 drop OU Q12 [facility] Last Admin: 03/01/19 21:56 Dose: 1 drop - Labs Labs: 03/02/19 04:50 03/02/19 04:50 - Constitutional Appears: Chronically Ill - Head Exam Head Exam: ATRAUMATIC, NORMAL INSPECTION, NORMOCEPHALIC - Eye Exam Eye Exam: EOMI, Normal appearance, PERRL Pupil Exam: NORMAL ACCOMODATION, PERRL - ENT Exam ENT Exam: Mucous Membranes Moist, Normal Exam - Neck Exam Neck Exam: Full ROM, Normal Inspection. absent: Lymphadenopathy - Respiratory Exam Respiratory Exam: Rales, NORMAL BREATHING PATTERN - Cardiovascular Exam Cardiovascular Exam: REGULAR RHYTHM, +S1, +S2. absent: Murmur - GI/Abdominal Exam GI & Abdominal Exam: Soft, Normal Bowel Sounds. absent: Tenderness - Rectal Exam Rectal Exam: NORMAL INSPECTION - Extremities Exam Extremities Exam: Full ROM, Normal Capillary Refill, Normal Inspection. 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
[2019-03-02] MEDS ORDERED: Mupirocin 2% Oint 1GM UD TOP SCH (09:30)
[2019-03-02] MEDS: guaiFENesin-DM 600-30 mg ER Tab PO SCH ×2 (10:05→22:41)
[2019-03-02] MEDS: Enoxaparin 30 mg Syringe SC SCH (10:05)
[2019-03-02] MEDS: Dorzolamide 2% Ophth Soln OU SCH ×3 (10:06→16:41)
[2019-03-02] MEDS: Lactobacillus Acidophilus 500 MU Cap PO SCH ×2 (10:12→16:39)
[2019-03-02] MEDS: Azithromycin 500 MG in Sodium Chloride 0.9% 250 ML IVPB SCH (12:51)
--- NOTE | 2019-03-02 12:57 | PCM.STROKE ---
Interval History Unable to obtain (state reason): pt has dementia; unclear date/time of onset No other interval changes in current, PMHx, FHx, SocHx, ROS: other than on note by: (initial neuro consult) - Treatment DVT Prophylaxis: Lovenox, Other (teds) Antiplatelet: Acetylsalicylic acid (ASA), Plavix - Education Written Stroke Education provided regarding: personal risk factors, stroke warning sign/symptoms, how to activate emergency medical services, need to follow up after discharge Hx Atrial Fibrillation: No Hx Atrial Flutter: No - Therapy Notes Physical therapy notes date reviewed: 03/02/19 I have reviewed care of the patient with: Dr. Fajardo NIHSS Stroke Scale - Date/Time Evaluation Performed Date Performed: 03/02/19 Time Performed: 13:50 When Was NIHSS Performed: Re-evaluation - How Severe is the Stroke Level of Consciousness: 0=Alert LOC to Questions: 2=Neither correct LOC to commands: 2=Neither correct Best Gaze: 0=Normal Visual: 0=No visual loss Facial: 0=Normal Motor Arm - Left: 3=No effort against gravity (falls immediately) Motor Arm - Right: 3=No effort against gravity (falls immediately) Motor Leg - Left: 3=No effort against gravity (falls immediately) Motor Leg - Right: 3=No effort against gravity (falls immediately) Limb Ataxia: 2=Present both Sensory: 2=Severe to total loss Best Language: 2=Severe aphasia Dysarthia: 2=Severe, near unintelligible or worse Extinction & Inattention (Neglect): 2=Profound neglect(does not recognize own hand or orients to one side) Score: 26 Exam - Vital Sign Vital Signs: Temp Pulse Resp BP Pulse Ox 97.6 F 81 20 136/85 93 L 03/02/19 12:00 03/02/19 12:00 03/02/19 12:00 03/02/19 12:00 03/02/19 12:00 Constitutional: No distress, Normal appearing Ophthalmoscopic: absent: papilledema, hemorrhage Right Pupil: Reactive Right Pupil Size (in mm): 2 Left Pupil: Reactive Left Pupil Size (in mm): 2 Cardiovascular: Regular rate & rhythm Mental Status: Normal: Other (baseline dementia; follows some commands; mumbles incomprehensible words) Cranial Nerve: Normal: Hearing, Palate/Tongue Movement Neuro motor strength exam: Left Upper Extremity: 3, Right Upper Extremity: 2/1, Left Lower Extremity: 3, Right Lower Extremity: 2/1 - Data reviewed Laboratory results: 03/02/19 04:50 03/02/19 04:50 Assessment and Plan (1) Embolic stroke Assessment & Plan: -Imaging reviewed. -Continue ASA; start Plavix 75 mg PO daily -Statin on hold 2/2 elevated LFTs -ECHO to be done--will f/u once completed. -PT/OT/ST per stroke protocol. -Notify neuro team of any acute changes in pt's condition. Please note, this pt has advanced dementia and does not verbally communicate aside from incomprehensible words and sounds. She is able to follows simple commands such as lifting her arms and moving legs. The NIHSS may not be accurate because of difficulty to get an accurate neuro assessment 2/2 pt's advanced dementia. Sade Borges, DNP, [employer] OPERATOR d/w Dr. Fajardo Status: Acute
--- NOTE | 2019-03-02 13:16 | CP.PCM.PN ---
Subjective - Date & Time of Evaluation Date of Evaluation: 03/02/19 Time of Evaluation: 09:00 - Subjective Subjective: events noted new CVA lethargic NAD afebrilke Objective - Vital Signs/Intake and Output Vital Signs (last 24 hours): Temp Pulse Resp BP Pulse Ox 97.6 F 81 20 136/85 93 L 03/02/19 12:00 03/02/19 12:00 03/02/19 12:00 03/02/19 12:00 03/02/19 12:00 - Medications Medications: Current Medications Acetaminophen (Tylenol 325mg Tab) 650 mg PO Q4 PRN PRN Reason: Fever >100.4 F Last Admin: 02/25/19 19:45 Dose: 650 mg Alprazolam (Xanax) 0.25 mg PO DAILY [facility] Stop: 03/06/19 21:01 Last Admin: 03/02/19 10:11 Dose: 0.25 mg Aspirin (Ecotrin) 81 mg PO DAILY [facility] Last Admin: 03/02/19 10:05 Dose: 81 mg Donepezil HCl (Aricept) 10 mg PO HS [facility] Last Admin: 03/01/19 21:55 Dose: 10 mg Dorzolamide HCl (Trusopt) 1 drop OU TID [facility] Last Admin: 03/02/19 12:50 Dose: 1 drop Enoxaparin Sodium (Lovenox) 30 mg SC DAILY [facility]; Protocol Last Admin: 03/02/19 10:05 Dose: 30 mg Guaifenesin/Dextromethorphan (Mucinex-Dm 600-30 Mg) 1 tab PO Q12 [facility] Last Admin: 03/02/19 10:05 Dose: 1 tab Meropenem 500 mg/ Sodium (Chloride) 100 mls @ 100 mls/hr IVPB Q8 [facility]; Protocol Last Admin: 03/02/19 10:07 Dose: 100 mls/hr Vancomycin HCl 1 gm/ Sodium (Chloride) 250 mls @ 166.667 mls/hr IVPB Q24H [facility]; Protocol Last Admin: 03/01/19 21:54 Dose: 166.667 mls/hr Azithromycin 500 mg/ Sodium (Chloride) 250 mls @ 250 mls/hr IVPB DAILY [facility]; Protocol Last Admin: 03/02/19 12:51 Dose: 250 mls/hr Lactobacillus Acidophilus (Bacid Acidophilus) 1 cap PO BID [facility] Last Admin: 03/02/19 10:12 Dose: 1 cap Memantine (Namenda) 10 mg PO Q12 [facility] Last Admin: 03/02/19 10:06 Dose: 10 mg Mupirocin (Bactroban Ointment) 1 applic TOP BID [facility] Last Admin: 03/02/19 10:33 Dose: 1 dose Timolol Maleate (Timoptic 0.5% Ophth Soln) 1 drop OU Q12 [facility] Last Admin: 03/02/19 10:06 Dose: 1 drop - Labs Labs: 03/02/19 04:50 03/02/19 04:50 - Constitutional Appears: No Acute Distress, Cachectic, Chronically Ill - Head Exam Head Exam: ATRAUMATIC, NORMAL INSPECTION, NORMOCEPHALIC - Eye Exam Eye Exam: EOMI, Normal appearance, PERRL Pupil Exam: NORMAL ACCOMODATION, PERRL - ENT Exam ENT Exam: Mucous Membranes Moist, Normal Exam - Neck Exam Neck Exam: Full ROM, Normal Inspection. absent: Lymphadenopathy - Respiratory Exam Respiratory Exam: Decreased Breath Sounds, Clear to Ausculation Bilateral - Cardiovascular Exam Cardiovascular Exam: REGULAR RHYTHM, +S1, +S2. absent: Murmur - GI/Abdominal Exam GI & Abdominal Exam: Soft, Normal Bowel Sounds. absent: Tenderness - Rectal Exam Rectal Exam: Deferred - Exam Exam: NORMAL INSPECTION - Extremities Exam Extremities Exam: Full ROM, Normal Capillary Refill, Normal Inspection. absent: Joint Swelling, Pedal Edema - Back Exam Back Exam: NORMAL INSPECTION - Neurological Exam Neurological Exam: Alert, Awake, CN II-XII Intact. absent: Normal Gait, Oriented x3 Neuro motor strength exam: Left Upper Extremity: 4, Right Upper Extremity: 2/1, Left Lower Extremity: 4, Right Lower Extremity: 2/1 - Psychiatric Exam Psychiatric exam: Depressed - Skin Skin Exam: Dry, Intact, Normal Color, Warm Assessment and Plan (1) Pneumonia Status: Acute (2) Sepsis Status: Acute (3) UTI (urinary tract infection) Status: Acute (4) Dementia Status: Chronic (5) Essential (primary) hypertension Status: Chronic (6) CVA (cerebral vascular accident) Status: Acute - Assessment and Plan (Free Text) Assessment: poor overall prognosis cont rx palliative care
[2019-03-03] MEDS: Meropenem 500 MG in Sodium Chloride 0.9% 100 ML IVPB SCH ×2 (00:31→08:54)
--- NOTE | 2019-03-03 08:36 | CP.PCM.PN ---
Subjective - Date & Time of Evaluation Date of Evaluation: 03/03/19 Time of Evaluation: 08:36 - Subjective Subjective: MORE AWAKE AND ALERT VSS RESPONDS TO VERBAL COMMANDS ABLE TO MOVE ALL EXTREMITIES AGAINST GRAVITY Objective - Vital Signs/Intake and Output Vital Signs (last 24 hours): Temp Pulse Resp BP Pulse Ox 98.2 F 88 16 126/78 98 03/03/19 05:10 03/03/19 05:10 03/03/19 05:10 03/03/19 05:10 03/03/19 05:10 - Medications Medications: Current Medications Acetaminophen (Tylenol 325mg Tab) 650 mg PO Q4 PRN PRN Reason: Fever >100.4 F Last Admin: 02/25/19 19:45 Dose: 650 mg Alprazolam (Xanax) 0.25 mg PO DAILY [facility] Stop: 03/06/19 21:01 Last Admin: 03/02/19 10:11 Dose: 0.25 mg Aspirin (Ecotrin) 81 mg PO DAILY [facility] Last Admin: 03/02/19 10:05 Dose: 81 mg Clopidogrel Bisulfate (Plavix) 75 mg PO DAILY [facility] Donepezil HCl (Aricept) 10 mg PO HS [facility] Last Admin: 03/02/19 22:41 Dose: 10 mg Dorzolamide HCl (Trusopt) 1 drop OU TID [facility] Last Admin: 03/02/19 16:41 Dose: 1 drop Enoxaparin Sodium (Lovenox) 30 mg SC DAILY [facility]; Protocol Last Admin: 03/02/19 10:05 Dose: 30 mg Guaifenesin/Dextromethorphan (Mucinex-Dm 600-30 Mg) 1 tab PO Q12 [facility] Last Admin: 03/02/19 22:41 Dose: 1 tab Meropenem 500 mg/ Sodium (Chloride) 100 mls @ 100 mls/hr IVPB Q8 [facility]; Protocol Last Admin: 03/03/19 00:31 Dose: 100 mls/hr Vancomycin HCl 1 gm/ Sodium (Chloride) 250 mls @ 166.667 mls/hr IVPB Q24H [facility]; Protocol Last Admin: 03/02/19 22:42 Dose: 166.667 mls/hr Azithromycin 500 mg/ Sodium (Chloride) 250 mls @ 250 mls/hr IVPB DAILY [facility]; Protocol Last Admin: 03/02/19 12:51 Dose: 250 mls/hr Lactobacillus Acidophilus (Bacid Acidophilus) 1 cap PO BID [facility] Last Admin: 03/02/19 16:39 Dose: 1 cap Memantine (Namenda) 10 mg PO Q12 [facility] Last Admin: 03/02/19 22:41 Dose: 10 mg Mupirocin (Bactroban Ointment) 1 applic TOP BID [facility] Last Admin: 03/02/19 16:39 Dose: 1 dose Timolol Maleate (Timoptic 0.5% Ophth Soln) 1 drop OU Q12 [facility] Last Admin: 03/02/19 22:42 Dose: 1 drop - Labs Labs: 03/02/19 04:50 03/02/19 04:50 - Constitutional Appears: No Acute Distress, Confused - Head Exam Head Exam: ATRAUMATIC, NORMAL INSPECTION, NORMOCEPHALIC - Eye Exam Eye Exam: EOMI, Normal appearance, PERRL Pupil Exam: NORMAL ACCOMODATION, PERRL - ENT Exam ENT Exam: Mucous Membranes Moist, Normal Exam - Neck Exam Neck Exam: Full ROM, Normal Inspection. absent: Lymphadenopathy - Respiratory Exam Respiratory Exam: Prolonged Expiratory Phase, Rales, NORMAL BREATHING PATTERN - Cardiovascular Exam Cardiovascular Exam: REGULAR RHYTHM, +S1, +S2. absent: Murmur - GI/Abdominal Exam GI & Abdominal Exam: Soft, Normal Bowel Sounds. absent: Tenderness - Rectal Exam Rectal Exam: NORMAL INSPECTION - Extremities Exam Extremities Exam: Full ROM, Normal Capillary Refill, Normal Inspection. absent: Joint Swelling, Pedal Edema - Back Exam Back Exam: NORMAL INSPECTION - Neurological Exam Neurological Exam: Abnormal Gait, Alert, Awake, CN II-XII Intact, Oriented x3 - Psychiatric Exam Psychiatric exam: Flat Affect - Skin Skin Exam: Dry, Intact, Normal Color, Warm Assessment and Plan - Assessment and Plan (Free Text) Assessment: PNEUMONIA WITH SEPSIS CVA-GRADUALLY IMPROVING DEMENTIA LEUKOCYTOSIS Plan: CONTINUE CURRENT RX CONSIDER SUBACUTE CARE REPEAT LABS
[2019-03-03] MEDS: Lactobacillus Acidophilus 500 MU Cap PO SCH (08:55)
[2019-03-03] MEDS: Enoxaparin 30 mg Syringe SC SCH (08:58)
[2019-03-03] MEDS: Dorzolamide 2% Ophth Soln OU SCH ×2 (09:01→13:09)
[2019-03-03] MEDS: guaiFENesin-DM 600-30 mg ER Tab PO SCH ×2 (09:02→23:04)
[2019-03-03] MEDS: Azithromycin 500 MG in Sodium Chloride 0.9% 250 ML IVPB SCH ×2 (10:38→13:07)
[2019-03-04] MEDS: Meropenem 500 MG in Sodium Chloride 0.9% 100 ML IVPB SCH ×4 (02:04→16:26)
[2019-03-04 05:58] LABS: BASO # 0.1 K/uL (0.0-0.2); BASO % 0.7 % (0.0-2.0); EOS # 0.4 K/uL (0.0-0.7); EOS % 2.3 % (0.0-4.0); HEMOGLOBIN 9.6 g/dL (12.0-16.0); LYMPH # 0.8 K/uL (1.0-4.3); MEAN CELL VOLUME 91.7 fl (81.0-99.0); MEAN CORPUSCULAR HEMOGLOBIN 30.4 pg (27.0-31.0); MEAN CORPUSCULAR HGB CONC 33.2 g/dL (33.0-37.0); MEAN PLATELET VOLUME 8.8 fl (7.2-11.7); MONO % 5.3 % (0.0-10.0); NEUT # 16.3 K/uL (1.8-7.0); NEUT % 87.7 % (50.0-75.0); RBC 3.14 Mil/uL (3.80-5.20); RED CELL DISTRIBUTION WIDTH 15.2 % (11.5-14.5); WHITE BLOOD COUNT 18.6 K/uL (4.8-10.8)
[2019-03-04] MEDS: Lactobacillus Acidophilus 500 MU Cap PO SCH ×3 (09:18→16:25)
[2019-03-04] MEDS: guaiFENesin-DM 600-30 mg ER Tab PO SCH (09:29)
[2019-03-04] MEDS: Dorzolamide 2% Ophth Soln OU SCH ×4 (09:30→16:26)
[2019-03-04] MEDS: Enoxaparin 30 mg Syringe SC SCH (09:33)
[2019-03-04 09:42] VITALS: BMI 26.6
--- NOTE | 2019-03-04 11:04 | PCM.STROKE ---
Interval History - Treatment DVT Prophylaxis: Lovenox, Other (teds) Antiplatelet: Acetylsalicylic acid (ASA), Plavix - Education Written Stroke Education provided regarding: personal risk factors, stroke warning sign/symptoms, how to activate emergency medical services, need to follow up after discharge Hx Atrial Fibrillation: No Hx Atrial Flutter: No - Therapy Notes I have reviewed care of the patient with: Dr. Fajardo NIHSS Stroke Scale - Date/Time Evaluation Performed Date Performed: 03/04/19 Time Performed: 11:05 When Was NIHSS Performed: Re-evaluation - How Severe is the Stroke Level of Consciousness: 0=Alert LOC to Questions: 2=Neither correct LOC to commands: 2=Neither correct Best Gaze: 0=Normal Visual: 0=No visual loss Facial: 0=Normal Motor Arm - Left: 3=No effort against gravity (falls immediately) Motor Arm - Right: 3=No effort against gravity (falls immediately) Motor Leg - Left: 3=No effort against gravity (falls immediately) Motor Leg - Right: 3=No effort against gravity (falls immediately) Limb Ataxia: 2=Present both Sensory: 2=Severe to total loss Best Language: 2=Severe aphasia Dysarthia: 2=Severe, near unintelligible or worse Extinction & Inattention (Neglect): 2=Profound neglect(does not recognize own hand or orients to one side) Score: 26 Exam - Vital Sign Vital Signs: Temp Pulse Resp BP Pulse Ox 98.3 F 97 H 20 129/73 95 03/04/19 08:04 03/04/19 08:04 03/04/19 08:04 03/04/19 08:04 03/04/19 08:04 Constitutional: No distress, Other (baseline dementia, moans incomprehensible words/noises) Ophthalmoscopic: absent: papilledema, hemorrhage Right Pupil: Reactive Right Pupil Size (in mm): 2 Left Pupil: Reactive Mental Status: Normal: Other (baseline dementia) - Data reviewed Laboratory results: 03/04/19 05:35 03/02/19 04:50 Assessment and Plan (1) Embolic stroke Assessment & Plan: Neurological exam and NIHSS difficult to obtain today as the pt is baseline dementia, does not verbally respond to questions nor does she follow most commands; she moans incomprehensible words/noises. She moves extremities independently with generalized weakness 2/2 deconditioning. -Imaging reviewed. -Continue ASA 81 mg PO Daily and Plavix 75 mg PO daily. -Statin on hold 2/2 elevated LFTs. May try to reintroduce once LFTs have normalized. -ECHO still needs to be done. -Continue PT/OT as tolerated. -Continue secondary stroke prevention. -Notify neuro team of any acute changes in pt's condition. No further neuro recommendations at this time. Please reconsult prn. Sade Borges, DAVID, CONTINUOUS PROCESS MACHINE OPERATOR d/w Dr. Fajardo Status: Acute
--- NOTE | 2019-03-04 11:19 | CP.PCM.PN ---
Subjective - Date & Time of Evaluation Date of Evaluation: 03/04/19 Time of Evaluation: 11:20 - Subjective Subjective: CLINICALLY IMPROVING NO APPARENT DISTRESS AFEBRILE Objective - Vital Signs/Intake and Output Vital Signs (last 24 hours): Temp Pulse Resp BP Pulse Ox 98.3 F 97 H 20 129/73 95 03/04/19 08:04 03/04/19 08:04 03/04/19 08:04 03/04/19 08:04 03/04/19 08:04 - Medications Medications: Current Medications Acetaminophen (Tylenol 325mg Tab) 650 mg PO Q4 PRN PRN Reason: Fever >100.4 F Last Admin: 02/25/19 19:45 Dose: 650 mg Alprazolam (Xanax) 0.25 mg PO DAILY [facility] Stop: 03/06/19 21:01 Last Admin: 03/04/19 09:36 Dose: 0.25 mg Aspirin (Ecotrin) 81 mg PO DAILY [facility] Last Admin: 03/04/19 09:32 Dose: 81 mg Clopidogrel Bisulfate (Plavix) 75 mg PO DAILY [facility] Last Admin: 03/04/19 09:34 Dose: 75 mg Donepezil HCl (Aricept) 10 mg PO HS [facility] Last Admin: 03/03/19 23:04 Dose: 10 mg Dorzolamide HCl (Trusopt) 1 drop OU TID [facility] Last Admin: 03/04/19 09:30 Dose: 1 drop Enoxaparin Sodium (Lovenox) 30 mg SC DAILY [facility]; Protocol Last Admin: 03/04/19 09:33 Dose: 30 mg Guaifenesin/Dextromethorphan (Mucinex-Dm 600-30 Mg) 1 tab PO Q12 [facility] Last Admin: 03/04/19 09:29 Dose: 1 tab Meropenem 500 mg/ Sodium (Chloride) 100 mls @ 100 mls/hr IVPB Q8 [facility]; Protocol Last Admin: 03/04/19 09:33 Dose: 100 mls/hr Vancomycin HCl 1 gm/ Sodium (Chloride) 250 mls @ 166.667 mls/hr IVPB Q24H [facility]; Protocol Last Admin: 03/03/19 23:06 Dose: 166.667 mls/hr Lactobacillus Acidophilus (Bacid Acidophilus) 1 cap PO BID [facility] Last Admin: 03/04/19 09:31 Dose: 1 cap Memantine (Namenda) 10 mg PO Q12 [facility] Last Admin: 03/04/19 09:34 Dose: 10 mg Mupirocin (Bactroban Ointment) 1 applic TOP BID [facility] Last Admin: 03/04/19 09:32 Dose: 1 applic Nystatin (Nystop Topical Powder) 1 applic TOP TID [facility] Timolol Maleate (Timoptic 0.5% Ophth Soln) 1 drop OU Q12 [facility] Last Admin: 03/04/19 09:30 Dose: 1 drop - Labs Labs: 03/04/19 05:35 03/02/19 04:50 - Constitutional Appears: No Acute Distress - Head Exam Head Exam: ATRAUMATIC, NORMAL INSPECTION, NORMOCEPHALIC - Eye Exam Eye Exam: EOMI, Normal appearance, PERRL Pupil Exam: NORMAL ACCOMODATION, PERRL - ENT Exam ENT Exam: Mucous Membranes Moist, Normal Exam - Neck Exam Neck Exam: Full ROM, Normal Inspection. absent: Lymphadenopathy - Respiratory Exam Respiratory Exam: Clear to Ausculation Bilateral, NORMAL BREATHING PATTERN - Cardiovascular Exam Cardiovascular Exam: REGULAR RHYTHM, +S1, +S2. absent: Murmur - GI/Abdominal Exam GI & Abdominal Exam: Soft, Normal Bowel Sounds. absent: Tenderness - Rectal Exam Rectal Exam: NORMAL INSPECTION - Extremities Exam Extremities Exam: Full ROM, Normal Capillary Refill, Normal Inspection. absent: Joint Swelling, Pedal Edema - Back Exam Back Exam: NORMAL INSPECTION - Neurological Exam Neurological Exam: Alert, Awake, CN II-XII Intact, Normal Gait, Oriented x3 - Psychiatric Exam Psychiatric exam: Normal Affect, Normal Mood - Skin Skin Exam: Dry, Intact, Normal Color, Warm Assessment and Plan - Assessment and Plan (Free Text) Assessment: PNEUMONIA CVA DEMENTIA UTI PERSISTENT LEUKOCYTOSIS Plan: CONTINUE CURRENT RX HEME--ONC EVAL RE-LEUKOCYTOSIS
--- NOTE | 2019-03-04 11:32 | CP.PCM.CON ---
History of Present Illness - History of Present Illness History of Present Illness: 88 year old female with a history of alzheimers dementia, HTN, brought in by her family for urinary/bowel incontinence, being treated for UTI, and CVA, with leukocytosis. I am unable to obtain a history from the patient. Review of her medical records shows leukocytosis with predominant neutrophilia. Hgb has nadired at 9.6 and there is no overt evidence of bleeding. Past medical, surgical, family, social history cannot be obtained from the patient. Allergies: NKA Review of systems cannot be obtained from the patient. Past Patient History - Infectious Disease Hx of Infectious Diseases: None - Past Medical History & Family History Past Medical History?: Yes - Past Social History Smoking Status: Unknown If Ever Smoked - CARDIAC Hx Atrial Fibrillation: No - PULMONARY Hx Respiratory Disorders: No - NEUROLOGICAL Hx Alzheimer's Disease: Yes Hx Dementia: Yes - HEENT Hx Cataracts: Yes Hx Glaucoma: Yes - RENAL Hx Chronic Kidney Disease: No - HEMATOLOGICAL/ONCOLOGICAL Hx Human Immunodeficiency Virus (HIV): No - INTEGUMENTARY Hx Dermatological Problems: No - MUSCULOSKELETAL/RHEUMATOLOGICAL Hx Falls: Yes - GASTROINTESTINAL Hx Gastrointestinal Disorders: No - GENITOURINARY/GYNECOLOGICAL Hx Incontinence: Yes - PSYCHIATRIC Hx Substance Use: No - SURGICAL HISTORY Hx Surgeries: Yes Hx Eye Surgery: Yes Other/Comment: lumpectomy/abdominal sx - ANESTHESIA Hx Anesthesia: Yes Hx Anesthesia Reactions: No Hx Malignant Hyperthermia: No Meds Home Medications: Home Medication List Medication Instructions Recorded Confirmed Type ALPRAZolam [Xanax] 0.25 mg PO DAILY tab 03/04/19 Rx Acetaminophen [Tylenol 325mg tab] 650 mg PO Q4 PRN tab 03/04/19 Rx Clopidogrel [Plavix] 75 mg PO DAILY tab 03/04/19 Rx Enoxaparin [Lovenox] 30 mg SC DAILY syr 03/04/19 Rx Lactobacillus Acidophilus [Bacid 1 cap PO BID cap 03/04/19 Rx Acidophilus] Meropenem [Merrem IV] 500 mg IV Q8 #20 pds 03/04/19 Rx Mupirocin 2% Ointment [Bactroban 1 applic TOP BID tube 03/04/19 Rx Ointment] Nystatin [Nystop Topical Powder] 1 applic TOP TID bottle 03/04/19 Rx Timolol 0.5% Ophth [Timoptic 0.5% 1 drop OU Q12 bottle 03/04/19 Rx Ophth Soln] guaiFENesin/Dextromethorphan 1 tab PO Q12 tab 03/04/19 Rx [Mucinex-DM 600-30 mg] Allergies/Adverse Reactions: Allergies Allergy/AdvReac Type Severity Reaction Status Date / Time No Known Allergies Allergy Verified 03/11/18 14:10 - Medications Medications: Current Medications Acetaminophen (Tylenol 325mg Tab) 650 mg PO Q4 PRN PRN Reason: Fever >100.4 F Last Admin: 02/25/19 19:45 Dose: 650 mg Alprazolam (Xanax) 0.25 mg PO DAILY [facility] Stop: 03/06/19 21:01 Last Admin: 03/04/19 09:36 Dose: 0.25 mg Aspirin (Ecotrin) 81 mg PO DAILY [facility] Last Admin: 03/04/19 09:32 Dose: 81 mg Clopidogrel Bisulfate (Plavix) 75 mg PO DAILY [facility] Last Admin: 03/04/19 09:34 Dose: 75 mg Donepezil HCl (Aricept) 10 mg PO HS [facility] Last Admin: 03/03/19 23:04 Dose: 10 mg Dorzolamide HCl (Trusopt) 1 drop OU TID [facility] Last Admin: 03/04/19 09:30 Dose: 1 drop Enoxaparin Sodium (Lovenox) 30 mg SC DAILY [facility]; Protocol Last Admin: 03/04/19 09:33 Dose: 30 mg Guaifenesin/Dextromethorphan (Mucinex-Dm 600-30 Mg) 1 tab PO Q12 [facility] Last Admin: 03/04/19 09:29 Dose: 1 tab Meropenem 500 mg/ Sodium (Chloride) 100 mls @ 100 mls/hr IVPB Q8 [facility]; Protocol Last Admin: 03/04/19 09:33 Dose: 100 mls/hr Vancomycin HCl 1 gm/ Sodium (Chloride) 250 mls @ 166.667 mls/hr IVPB Q24H [facility]; Protocol Last Admin: 03/03/19 23:06 Dose: 166.667 mls/hr Lactobacillus Acidophilus (Bacid Acidophilus) 1 cap PO BID [facility] Last Admin: 03/04/19 09:31 Dose: 1 cap Memantine (Namenda) 10 mg PO Q12 [facility] Last Admin: 03/04/19 09:34 Dose: 10 mg Mupirocin (Bactroban Ointment) 1 applic TOP BID [facility] Last Admin: 03/04/19 09:32 Dose: 1 applic Nystatin (Nystop Topical Powder) 1 applic TOP TID [facility] Timolol Maleate (Timoptic 0.5% Ophth Soln) 1 drop OU Q12 [facility] Last Admin: 03/04/19 09:30 Dose: 1 drop Physical Exam - Head Exam Head Exam: ATRAUMATIC - Eye Exam Eye Exam: Normal appearance - ENT Exam ENT Exam: Mucous Membranes Dry - Respiratory Exam Respiratory Exam: Decreased Breath Sounds - Cardiovascular Exam Cardiovascular Exam: +S1, +S2 - GI/Abdominal Exam GI & Abdominal Exam: Normal Bowel Sounds - Neurological Exam Neurological exam: Altered - Psychiatric Exam Psychiatric exam: Flat Affect - Skin Skin Exam: Warm Results - Vital Signs Recent Vital Signs: Last Vital Signs Temp 98.3 F 03/04/19 08:04 Pulse 97 H 03/04/19 08:04 Resp 20 03/04/19 08:04 BP 129/73 03/04/19 08:04 Pulse Ox 95 03/04/19 08:04 - Labs Result Diagrams: 03/04/19 05:35 03/02/19 04:50 Labs: Laboratory Results - last 24 hr 03/04/19 05:35 WBC 18.6 H RBC 3.14 L Hgb 9.6 L D Hct 28.8 L MCV 91.7 MCH 30.4 MCHC 33.2 RDW 15.2 H Plt Count 200 MPV 8.8 Neut % (Auto) 87.7 H Lymph % (Auto) 4.0 L Power % (Auto) 5.3 Eos % (Auto) 2.3 Baso % (Auto) 0.7 Neut # (Auto) 16.3 H Lymph # (Auto) 0.8 L Power # (Auto) 1.0 H Eos # (Auto) 0.4 Baso # (Auto) 0.1 Assessment & Plan (1) Leukocytosis Assessment and Plan: neutrophilia likely related to UTI and CVA repeat CBC as outpatient if persists, will consider flow cytometery testing Status: Acute (2) Anemia Assessment and Plan: retic count, b12, folate, ferritin, FOBT to further characterize anemia of chronic disease Thank you for this interesting consult. Status: Acute
--- NOTE | 2019-03-04 12:58 | CP.PCM.PN ---
Subjective - Date & Time of Evaluation Date of Evaluation: 03/04/19 Time of Evaluation: 09:00 - Subjective Subjective: events noted seen by Dr Cowart rx in progress Objective - Vital Signs/Intake and Output Vital Signs (last 24 hours): Temp Pulse Resp BP Pulse Ox 98.2 F 97 H 20 121/71 96 03/04/19 12:53 03/04/19 12:53 03/04/19 12:53 03/04/19 12:53 03/04/19 12:53 - Medications Medications: Current Medications Acetaminophen (Tylenol 325mg Tab) 650 mg PO Q4 PRN PRN Reason: Fever >100.4 F Last Admin: 02/25/19 19:45 Dose: 650 mg Alprazolam (Xanax) 0.25 mg PO DAILY [facility] Stop: 03/06/19 21:01 Last Admin: 03/04/19 09:36 Dose: 0.25 mg Aspirin (Ecotrin) 81 mg PO DAILY [facility] Last Admin: 03/04/19 09:32 Dose: 81 mg Clopidogrel Bisulfate (Plavix) 75 mg PO DAILY [facility] Last Admin: 03/04/19 09:34 Dose: 75 mg Donepezil HCl (Aricept) 10 mg PO HS [facility] Last Admin: 03/03/19 23:04 Dose: 10 mg Dorzolamide HCl (Trusopt) 1 drop OU TID [facility] Last Admin: 03/04/19 09:30 Dose: 1 drop Enoxaparin Sodium (Lovenox) 30 mg SC DAILY [facility]; Protocol Last Admin: 03/04/19 09:33 Dose: 30 mg Guaifenesin/Dextromethorphan (Mucinex-Dm 600-30 Mg) 1 tab PO Q12 [facility] Last Admin: 03/04/19 09:29 Dose: 1 tab Meropenem 500 mg/ Sodium (Chloride) 100 mls @ 100 mls/hr IVPB Q8 [facility]; Protocol Last Admin: 03/04/19 09:33 Dose: 100 mls/hr Vancomycin HCl 1 gm/ Sodium (Chloride) 250 mls @ 166.667 mls/hr IVPB Q24H [facility]; Protocol Last Admin: 03/03/19 23:06 Dose: 166.667 mls/hr Lactobacillus Acidophilus (Bacid Acidophilus) 1 cap PO BID [facility] Last Admin: 03/04/19 09:31 Dose: 1 cap Memantine (Namenda) 10 mg PO Q12 [facility] Last Admin: 03/04/19 09:34 Dose: 10 mg Mupirocin (Bactroban Ointment) 1 applic TOP BID [facility] Last Admin: 03/04/19 09:32 Dose: 1 applic Nystatin (Nystop Topical Powder) 1 applic TOP TID [facility] Timolol Maleate (Timoptic 0.5% Ophth Soln) 1 drop OU Q12 [facility] Last Admin: 03/04/19 09:30 Dose: 1 drop - Labs Labs: 03/04/19 05:35 03/02/19 04:50 - Constitutional Appears: Non-toxic, Confused, Cachectic, Chronically Ill - Head Exam Head Exam: ATRAUMATIC, NORMAL INSPECTION, NORMOCEPHALIC - Eye Exam Eye Exam: EOMI, Normal appearance, PERRL Pupil Exam: NORMAL ACCOMODATION, PERRL - ENT Exam ENT Exam: Mucous Membranes Moist, Normal Exam - Neck Exam Neck Exam: Full ROM, Normal Inspection. absent: Lymphadenopathy - Respiratory Exam Respiratory Exam: Clear to Ausculation Bilateral, NORMAL BREATHING PATTERN - Cardiovascular Exam Cardiovascular Exam: REGULAR RHYTHM, +S1, +S2. absent: Murmur - GI/Abdominal Exam GI & Abdominal Exam: Soft, Normal Bowel Sounds. absent: Tenderness - Rectal Exam Rectal Exam: Deferred - Extremities Exam Extremities Exam: Full ROM, Normal Capillary Refill, Normal Inspection. absent: Joint Swelling, Pedal Edema - Back Exam Back Exam: NORMAL INSPECTION - Neurological Exam Neurological Exam: Awake, CN II-XII Intact. absent: Alert, Normal Gait, Oriented x3 - Psychiatric Exam Psychiatric exam: Depressed - Skin Skin Exam: Dry, Intact, Warm Assessment and Plan (1) Pneumonia Status: Acute (2) Sepsis Status: Acute (3) UTI (urinary tract infection) Status: Acute (4) Dementia Status: Chronic (5) Essential (primary) hypertension Status: Chronic (6) CVA (cerebral vascular accident) Status: Acute - Assessment and Plan (Free Text) Assessment: IV rcx reordered poor prognosis
[2019-03-04 15:53] VITALS: BP 108/69; PULSE 93; RESP 18; TEMP 98; O2SAT 97
== END 2019-03-04 18:00 | DRG 871 ==
LOC: H.ER 10:45 → H.ERHOLD 13:40 → H.TEL 16:52
PROVIDERS: ADMIT Internal Medicine Pulmonary Disease; ATTEND Internal Medicine Pulmonary Disease
PROC: 02HV33Z Insertion of Infusion Device into Superior Vena Cava, Percutaneous Approach (ICD-10-PCS; principal; 2019-02-28)
PROC: B54MZZA Ultrasonography of Right Upper Extremity Veins, Guidance (ICD-10-PCS; 2019-02-28)
PROC: 0W993ZZ Drainage of Right Pleural Cavity, Percutaneous Approach (ICD-10-PCS; 2019-03-01)
DX: A41.9 Sepsis, unspecified organism (principal); J18.9 Pneumonia, unspecified organism; I63.40 Cerebral infarction due to embolism of unspecified cerebral artery; G93.41 Metabolic encephalopathy; F02.81 Dementia in other diseases classified elsewhere, unspecified severity, with behavioral disturbance; E87.2 Acidosis; N39.0 Urinary tract infection, site not specified; J91.8 Pleural effusion in other conditions classified elsewhere; N17.9 Acute kidney failure, unspecified; R65.20 Severe sepsis without septic shock; E86.0 Dehydration; G30.9 Alzheimer's disease, unspecified; I10 Essential (primary) hypertension; D63.8 Anemia in other chronic diseases classified elsewhere; L40.9 Psoriasis, unspecified; H40.9 Unspecified glaucoma; B96.4 Proteus (mirabilis) (morganii) as the cause of diseases classified elsewhere; R29.726 NIHSS score 26; Z79.02 Long term (current) use of antithrombotics/antiplatelets